=== PATIENT | female | born 1955 | race African-American/Black ===

== ENCOUNTER 2020-12-17 11:43 | Emergency (ER) | payer BC, OTHER ==
[~2020-12-17] VITALS: Ht 167.6 cm; Wt 77.1 kg
[2020-12-17 13:32] LABS: Basophils # (auto) 0 10 ^3/uL (0-0.2); Basophils % (auto) 0.6 % (0.0-2.0); Eosinophils # (auto) 0.3 10 ^3/uL (0-0.8); Eosinophils % (auto) 4.5 % (0.0-7.0); Hematocrit 36.8 % (36.0-46.0); Hemoglobin 12.2 g/dL (12.2-16.2); Lymphocytes # (auto) 2.9 10 ^3/uL (0.4-5.4); Lymphocytes % (auto) 39.6 % (10.0-50.0); Mean Corpuscular Hemoglobin 29.9 pg (28.0-32.0); Mean Corpuscular Hgb Conc. 33.2 g/dL (32.0-36.0); Mean Corpuscular Volume 90.1 fL (80.0-100.0); Monocytes # (auto) 0.4 10 ^3/uL (0-1.3); Monocytes % (auto) 5.3 % (0.0-12.0); Neutrophils # (auto) 3.7 10 ^3/uL (1.6-8.6); Platelet Count (auto) 251 10^3/uL (140-450); Red Blood Cells 4.09 10^6/uL (4.0-5.20); Red Cell Distribution Width 15.2 % (11.8-14.3); White Blood Cell 7.4 10^3/uL (4.4-10.8)
[2020-12-17 13:46] LABS: Partial Thromboplastin Time 28.2 sec (23.0-31.2)
[2020-12-17 13:55] LABS: Albumin 3.3 g/dL (3.4-5.0); Anion Gap 5 (5-15); Blood Urea Nitrogen 17 mg/dL (7-18); Calcium 9.2 mg/dL (8.5-10.1); Carbon Dioxide 28 mmol/L (21-32); Chloride 109 mmol/L (98-107); Potassium 3.3 mmol/L (3.5-5.1); Sodium 142 mmol/L (136-145)
[2020-12-17 14:03] LABS: Alanine Aminotransferase 16 U/L (13-56); Alkaline Phosphatase 122 U/L (45-117); Aspartate Aminotransferase 16 U/L (15-37); BUN/Creatinine Ratio 20.7; Bilirubin, Total 0.4 mg/dL (0.2-1.0); GFR African American 90 mL/min; GFR Non-African American 74 mL/min; Glucose 112 mg/dL (74-106); Total Protein 7.8 g/dL (6.4-8.2)
[2020-12-17 16:01] VITALS: BP 142/82
[2020-12-17] MEDS ORDERED: POTASSIUM CHL 20 Meq TABLET PO ONE (16:15)
== END 2020-12-17 16:55 | disposition home or self-care (01) ==
LOC: ER 11:43
DX: M79.604 Pain in right leg (principal); E87.6 Hypokalemia; I10 Essential (primary) hypertension; E78.5 Hyperlipidemia, unspecified
CPT/HCPCS: 36415; 80053; 83880; 84484; 85025; 85379; 85610; 85730; 93005; 93971

== ENCOUNTER 2022-08-11 10:41 | Emergency (ER) | payer BC, OTHER ==
[~2022-08-11] VITALS: Ht 167.6 cm; Wt 114.2 kg
[2022-08-11] MEDS ORDERED: ALBUTEROL SULF 2.5 MG/0.5ML(0.5%) NEB SOLN NEB ONE ×3 (11:00→12:30)
[2022-08-11] MEDS ORDERED: IPRATROPIUM BROM 0.5 MG/2.5ML INH SOL NEB ONE (11:00)
[2022-08-11] MEDS ORDERED: DexAMETHasone SOD PHOS 10MG/1ML VIAL INJ IV ONE (11:15)
[2022-08-11 11:33] LABS: Basophils # (auto) 0 10 ^3/uL (0-0.2); Basophils % (auto) 0.7 % (0.0-2.0); Eosinophils # (auto) 0.8 10 ^3/uL (0-0.8); Eosinophils % (auto) 13.3 % (0.0-7.0); Hematocrit 38.5 % (36.0-46.0); Hemoglobin 12.2 g/dL (12.2-16.2); Lymphocytes # (auto) 2.1 10 ^3/uL (0.4-5.4); Lymphocytes % (auto) 33.3 % (10.0-50.0); Mean Corpuscular Hemoglobin 28.4 pg (28.0-32.0); Mean Corpuscular Hgb Conc. 31.8 g/dL (32.0-36.0); Mean Corpuscular Volume 89.2 fL (80.0-100.0); Monocytes # (auto) 0.5 10 ^3/uL (0-1.3); Monocytes % (auto) 7.3 % (0.0-12.0); Neutrophils # (auto) 2.8 10 ^3/uL (1.6-8.6); Neutrophils % (auto) 45.4 % (37.0-80.0); Nucleated Red Blood Cells % 0.1 %; Red Blood Cells 4.31 10^6/uL (4.0-5.20); Red Cell Distribution Width 15.6 % (11.8-14.3); White Blood Cell 6.3 10^3/uL (4.4-10.8)
[2022-08-11 11:55] LABS: Albumin 3.4 g/dL (3.4-5.0); Calcium 9.1 mg/dL (8.5-10.1); Potassium 3.7 mmol/L (3.5-5.1)
[2022-08-11 11:58] LABS: BUN/Creatinine Ratio 18.1; Bilirubin, Total 0.5 mg/dL (0.2-1.0); Total Protein 7.7 g/dL (6.4-8.2)
[2022-08-11] MEDS ORDERED: MAGNESIUM SULFATE 1GM/100ML 100 ML IV SCH (12:30)
[2022-08-11] MEDS ORDERED: ONDANSETRON HCL 4 MG/2 ML VIAL IV ONE (13:15)
[2022-08-11] MEDS ORDERED: AZIT250T8 PO (18:13)
[2022-08-11] MEDS ORDERED: AZITHROMYCIN 250 MG TAB PO ONE (18:30)
[2022-08-11 20:58] LABS: Urine Bacteria NONE SEEN /hpf (None Seen); Urine Blood Negative /uL (Negative); Urine WBC 1 /hpf (0 - 5)
[2022-08-11 21:45] VITALS: BP 157/95
== END 2022-08-11 21:53 | disposition home or self-care (01) ==
LOC: ER 10:41
DX: J40 Bronchitis, not specified as acute or chronic (principal); E78.5 Hyperlipidemia, unspecified; I10 Essential (primary) hypertension
CPT/HCPCS: 36415; 71045; 80053; 81001; 83735; 83880; 84484; 85025; 93005; 94640; 96374; 99285; J1100; J7644

== ENCOUNTER 2023-03-16 08:48 | Inpatient (IN) | payer OTHER ==
[~2023-03-16] VITALS: Ht 167.6 cm; Wt 109.3 kg
[~2023-03-16 08:48] MED LIST: AZIT-81 PO
[2023-03-16] MEDS ORDERED: IPRATROPIUM BROM 0.5 MG/2.5ML INH SOL NEB ONE (09:00)
[2023-03-16] MEDS ORDERED: ALBUTEROL SULF 2.5 MG/0.5ML(0.5%) NEB SOLN NEB ONE (09:00)
[2023-03-16 09:33] LABS: Basophils # (auto) 0 10 ^3/uL (0-0.2); Basophils % (auto) 0.6 % (0.0-2.0); Eosinophils # (auto) 0.8 10 ^3/uL (0-0.8); Eosinophils % (auto) 13.1 % (0.0-7.0); Hematocrit 38.6 % (36.0-46.0); Hemoglobin 12.7 g/dL (12.2-16.2); Lymphocytes # (auto) 2.3 10 ^3/uL (0.4-5.4); Lymphocytes % (auto) 39.4 % (10.0-50.0); Mean Corpuscular Hemoglobin 29.8 pg (28.0-32.0); Mean Corpuscular Hgb Conc. 32.9 g/dL (32.0-36.0); Mean Corpuscular Volume 90.5 fL (80.0-100.0); Monocytes # (auto) 0.4 10 ^3/uL (0-1.3); Monocytes % (auto) 6.7 % (0.0-12.0); Neutrophils # (auto) 2.3 10 ^3/uL (1.6-8.6); Neutrophils % (auto) 40.2 % (37.0-80.0); Red Blood Cells 4.26 10^6/uL (4.0-5.20); Red Cell Distribution Width 14.7 % (11.8-14.3); White Blood Cell 5.8 10^3/uL (4.4-10.8)
[2023-03-16] MEDS ORDERED: DexAMETHasone SOD PHOS 10MG/1ML VIAL INJ IV ONE (09:45)
[2023-03-16 10:19] LABS: Albumin 3.4 g/dL (3.4-5.0); Calcium 9.4 mg/dL (8.5-10.1); Potassium 3.1 mmol/L (3.5-5.1)
[2023-03-16 10:23] LABS: BUN/Creatinine Ratio 28.3 (10.0-20.0); Bilirubin, Total 0.5 mg/dL (0.2-1.0); Total Protein 8.3 g/dL (6.4-8.2)
[2023-03-16] MEDS: SODIUM CHLORIDE 0.9% 1,000 ML IV SCH (17:00)
[2023-03-16] MEDS ORDERED: DOCUSATE SOD 100 MG CAP PO PRN (17:00)
[2023-03-16] MEDS ORDERED: MORPHINE SULFATE INJ 2 MG/ml SYRG IV PRN (17:00)
[2023-03-16] MEDS ORDERED: ONDANSETRON HCL 4 MG/2 ML VIAL IV PRN (17:00)
[2023-03-16 17:59] VITALS: BP 136/87
[2023-03-16] MEDS ORDERED: IPRATROPIUM BROM 0.5 MG/2.5ML INH SOL NEB SCH (18:00)
[2023-03-16] MEDS ORDERED: ALBUTEROL SULF 2.5 MG/0.5ML(0.5%) NEB SOLN NEB SCH (18:00)
[2023-03-16] MEDS: DexAMETHasone SOD PHOS 4 MG/1ML SDV INJ IV SCH (18:00)
[2023-03-16] MEDS: IPRATROPIUM BROM 0.5 MG/2.5ML INH SOL NEB SCH (18:35)
[2023-03-16] MEDS: ALBUTEROL SULF 2.5 MG/0.5ML(0.5%) NEB SOLN NEB SCH (18:36)
[2023-03-16] MEDS: ENOXAPARIN SOD 120 MG/0.8 ML SYRINGE SC SCH (22:16)
[2023-03-17] MEDS: DexAMETHasone SOD PHOS 4 MG/1ML SDV INJ IV SCH ×3 (00:10→11:56)
[2023-03-17 00:15] LABS: Urine Bacteria FEW /hpf (None Seen); Urine Blood Negative /uL (Negative); Urine Mucus FEW (None Seen); Urine WBC 9 /hpf (0 - 5)
[2023-03-17 00:16] LABS: Urine Specific Gravity > 1.035 (1.001-1.035)
[2023-03-17] MEDS: SODIUM CHLORIDE 0.9% 1,000 ML IV SCH ×2 (01:47→09:59)
[2023-03-17] MEDS: IPRATROPIUM BROM 0.5 MG/2.5ML INH SOL NEB SCH ×2 (05:42→12:33)
[2023-03-17] MEDS: ALBUTEROL SULF 2.5 MG/0.5ML(0.5%) NEB SOLN NEB SCH ×2 (05:42→12:33)
[2023-03-17 06:02] LABS: Albumin 3.2 g/dL (3.4-5.0); Calcium 8.9 mg/dL (8.5-10.1); Potassium 3.4 mmol/L (3.5-5.1)
[2023-03-17 06:05] LABS: BUN/Creatinine Ratio 32.9 (10.0-20.0)
[2023-03-17 06:06] LABS: Basophils # (auto) 0 10 ^3/uL (0-0.2); Basophils % (auto) 0.2 % (0.0-2.0); Eosinophils # (auto) 0 10 ^3/uL (0-0.8); Eosinophils % (auto) 0.1 % (0.0-7.0); Hematocrit 36.7 % (36.0-46.0); Hemoglobin 12.2 g/dL (12.2-16.2); Lymphocytes # (auto) 1.2 10 ^3/uL (0.4-5.4); Mean Corpuscular Hemoglobin 30.3 pg (28.0-32.0); Mean Corpuscular Hgb Conc. 33.4 g/dL (32.0-36.0); Mean Corpuscular Volume 90.9 fL (80.0-100.0); Monocytes # (auto) 0.1 10 ^3/uL (0-1.3); Monocytes % (auto) 1.1 % (0.0-12.0); Neutrophils # (auto) 3.2 10 ^3/uL (1.6-8.6); Neutrophils % (auto) 71.6 % (37.0-80.0); Nucleated Red Blood Cells % 0.1 %; Red Blood Cells 4.03 10^6/uL (4.0-5.20); White Blood Cell 4.5 10^3/uL (4.4-10.8)
[2023-03-17 06:08] LABS: Bilirubin, Total 0.2 mg/dL (0.2-1.0); Total Protein 7.9 g/dL (6.4-8.2)
[2023-03-17] MEDS: ENOXAPARIN SOD 120 MG/0.8 ML SYRINGE SC SCH (09:58)
[2023-03-17] MEDS ORDERED: POTASSIUM EFFERVESENT TAB 25 MEQ PO SCH (10:00)
[2023-03-17] MEDS ORDERED: NALOXONE HCL 0.4 MG/ML VIAL ONE (13:40)
[2023-03-17 16:22] VITALS: BP 149/92
[2023-03-17] MEDS ORDERED: METH4PAK PO (16:26)
== END 2023-03-17 16:58 | disposition home or self-care (01) | DRG 189 ==
LOC: ER 08:48 → TELE 17:16
PROVIDERS: ADMIT Nurse Practitioner Family; ATTEND Nurse Practitioner Family
DX: J96.01 Acute respiratory failure with hypoxia (principal); J98.11 Atelectasis; J44.1 Chronic obstructive pulmonary disease with (acute) exacerbation; J45.901 Unspecified asthma with (acute) exacerbation; E87.6 Hypokalemia; I10 Essential (primary) hypertension; E66.01 Morbid (severe) obesity due to excess calories; E78.5 Hyperlipidemia, unspecified; Z68.38 Body mass index [BMI] 38.0-38.9, adult
CPT/HCPCS: 36415; 36600; 71045; 71275; 80053; 81001; 82805; 83880; 84484; 85025; 93005; 93970; 94640; 96374; 99291; G0378; J1100

== ENCOUNTER 2024-07-03 10:16 | Inpatient (IN) | payer OTHER ==
[~2024-07-03] VITALS: Ht 167.6 cm; Wt 114.9 kg
[~2024-07-03 10:16] MED LIST changes: +AZIT-185 PO; -AZIT-81 PO; +METH4PAK PO
[2024-07-03] MEDS: IPRATROPIUM BROM 0.5 MG/2.5ML INH SOL NEB ONE (11:07)
[2024-07-03] MEDS: LEVALBUTEROL HCL 1.25 MG/3 ML NEB NEB ONE (11:07)
--- NOTE | 2024-07-03 11:24 | DVH ---
EXAM: XY CHEST XRAY 1 VIEW Indication:sob Technique: Single frontal view of the chest was obtained Comparison: XY CHEST PORTABLE on DOS: 03/16/23, CHEST PORTABLE on DOS: 08/11/22, CXRP on DOS: 08/11/22 FINDINGS: Lines and Tubes: None Lungs: No focal consolidation. Pleura: No effusion. No pneumothorax. Cardiomediastinal contours: Unremarkable. Atherosclerotic vascular calcifications of the thoracic ao rta are noted. Bones: No acute osseous abnormality. IMPRESSION: No acute cardiopulmonary disease.
--- NOTE | 2024-07-03 11:26 | ED.PDOC ---
GI ASSESSMENT HPI Comments This is a 69-year-old female who comes to the ED with chief complain of abdominal pain and shortness of breath. She has a past medical history relevant for uterine cancer diagnosed in October, hysterectomy was performed on November, patient has received six chemotherapy sessions, the last one was last week. She also has a history of hypertension. Patient states that since June 12 she has been experiencing increasing shortness a breath and abdominal pain. She stated that the shortness of breath is at rest, on exertion, associated with wheezing, productive cough, which is [id number] amount. Is associated with fevers, chills, sweats, fatigue, generalized weakness, general malaise, orthopnea, low appetite. In regards to her abdominal pain, she stated that it is severe, colicky, most prominent on the lower quadrants, suprapubic, it does radiate to her lower back, she states having vaginal bleeding, dysuria, dribbling, urinary urgency, urinary frequency. Patient currently denies any chest pain, lightheadedness, dizziness, headache, nausea, vomiting, diarrhea, constipation, hematochezia, melena, hematemesis. Chief Complaint: Abdominal Pain Time Seen by MD: 10:19 Primary Care Provider: CHRISTOFER Ramirez Notes: Nurses Notes Allergies: Coded Allergies: NO KNOWN ALLERGIES (Unverified , 12/17/20) Home Meds Active Scripts Methylprednisolone (Medrol Dosepak) 4 Mg Faisal, 4 MG PO UD, #21 TAB UAD Prov:NEO KHAN MD 03/17/23 Azithromycin (ZITHROMAX TABLET) 250 Mg Tb, 250 MG PO DAILY for 5 Days, #5 TAB 0 Refills Prov:LUZ LAL MD 08/11/22 Information Source: Patient Mode of Arrival: Ambulatory Timing: Weeks Duration: Since onset Quality: Cramping Vomitus: None Severity: Severe Pain Location: LLQ, Suprapubic Past Medical History PAST MEDICAL HISTORY: Arthritis, HTN Surgical History: Hysterectomy Surgical History (Other): Uterine cancer diagnosed in October, hysterectomy performed on November. Has received six chemo sessions, last one was last week, upcoming radiation therapy [employer]ENT History: Other (Uterine cancer) Family History Family History: Reviewed,noncontributory to illness, Family hx of HTN Social History Smoker: Non-Smoker Alcohol: Rarely Drugs: Denies Drug Use Lives In: Home Constitutional: reports: chills, fatigue, fever, malaise, sweats, weakness; denies: diaphoresis, others EENTM: denies: blurred vision, double vision, ear bleeding, ear discharge, ear drainage, ear pain, ear ringing, eye pain, eye redness, hearing loss, mouth pain, mouth swelling, nasal discharge, nose bleeding, nose congestion, nose pain, photophobia, tearing, throat pain, throat swelling, voice changes, others Respiratory: reports: cough, orthopnea, SOB at rest, shortness of breath, SOB with excertion, wheezing; denies: hemoptysis, stridor, others Cardiovascular: reports: Dyspnea on exertion; denies: chest pain, dizzy spells, diaphoresis, edema, irregular heart beat, left arm pain, lightheadedness, palpitations, PND, syncope, others Gastrointestinal: reports: abdominal pain, poor appetite, poor fluid intake; denies: abdomen distended, blood streaked bowels, constipated, diarrhea, dysphagia, difficulty swallowing, hematemesis, melena, nausea, rectal bleeding, rectal pain, vomiting, others Genitourinary: reports: abnormal vagina bleeding, burning, dysuria, flank pain, frequency, urgency; denies: dyspareunia, hematuria, incontinence, pain, , vagina discharge, others Neurological: denies: dizziness, fainting, headache, left sided numbness, left sided weakness, numbness, paresthesia, pre-existing deficit, right sided numbness, right sided weakness, seizure, speech problems, tingling, tremors, weakness, others Musculoskeletal: denies: back pain, gout, joint pain, joint swelling, muscle pain, muscle stiffness, neck pain, others Integumetry: reports: dryness; denies: bruises, change in color, change in hair/nails, laceration, lesions, lumps, rash, wounds, others Allergic/Immunocompromised: denies: Difficulty Healing, Frequent Infections, Hives, Itching, others Hematologic/Lymphatic: denies: anemia, blood clots, easy bleeding, easy bruising, swollen glands, others Endocrine: denies: excessive hunger, excessive sweating, excessive thirst, excessive urination, flushing, intolerance to cold, intolerance to heat, unexplained weight gain, unexplained weight loss, others Psychiatric: denies: anxiety, bipolar disorder, depression, hopeless, panic disorder, schizophrenia, sleepless, suicidal, others Physical Exam General Appearance: Moderate Distress, Obese HEENT: Normal ENT Inspection, Pharynx Normal, TMs Normal Neck: Full Range of Motion, Non-Tender, Normal, Normal Inspection Respiratory: Crackles, Decreased Breath Sounds, Inspiration, No Accessory Muscle Use, Respiratory Distress, Wheezing Cardiovascular: No Edema, No JVD, No Murmur, No Gallop, Normal Peripheral Pulses, Regular Rate/Rhythm Breast Exam: Deferred Gastrointestinal: LLQ, Normal Bowel Sounds, Suprapubic, Tenderness Genitalia: Deferred Pelvic: Deferred Rectal: Deferred Extremities: No calf tenderness, Normal capillary refill, Normal inspection, Normal range of motion, Non-tender, No pedal edema Neurologic: Alert, Normal Affect, Normal Mood Cerebellar Function: NOT DONE Reflexes: NOT DONE Skin: Dry, Normal Color, Warm Lymphatic: No Adenopathy Was a procedure done? Was a procedure done?: No GI differential Dx Differential Diagnosis: Constipation, Diverticular disease, Dysmenorrhea, Gastroenteritis, Pancreatitis, UTI Other Differential Diagnosis Acute hypoxic respiratory failure, pneumonia X-Ray, Labs, Meds, VS Vital Signs Date Time Temp Pulse Resp B/P (MAP) Pulse Ox O2 Delivery O2 Flow Rate FiO2 07/03/24 11:42 90 14 91 Nasal Cannula* 4 36 07/03/24 11:42 98.0 90 14 169/81 (110) 91 98.0 07/03/24 11:07 20 97 Room Air* 0 21 07/03/24 10:46 105 07/03/24 10:45 98.0 99 16 153/98 (116) 95 Lab Test 07/03/24 13:12 Range/Units White Blood Count 16.9 H 4.4-10.8 10^3/uL Red Blood Count 3.41 L 4.0-5.20 10^6/uL Hemoglobin 10.1 L 12.2-16.2 g/dL Hematocrit 31.8 L 36.0-46.0 % Mean Corpuscular Volume 93.3 80.0-100.0 fL Mean Corpuscular Hemoglobin 29.6 28.0-32.0 pg Mean Corpuscular Hemoglobin Concent 31.7 L 32.0-36.0 g/dL Red Cell Distribution Width 18.8 H 11.8-14.3 % Platelet Count 127 L 140-450 10^3/uL Mean Platelet Volume 10.6 6.9-10.8 fL Neutrophils (%) (Auto) 86.4 H 37.0-80.0 % Lymphocytes (%) (Auto) 8.0 L 10.0-50.0 % Monocytes (%) (Auto) 1.7 0.0-12.0 % Eosinophils (%) (Auto) 3.7 0.0-7.0 % Basophils (%) (Auto) 0.2 0.0-2.0 % Neutrophils # (Auto) 14.6 H 1.6-8.6 10 ^3/uL Lymphocytes # (Auto) 1.4 0.4-5.4 10 ^3/uL Monocytes # (Auto) 0.3 0-1.3 10 ^3/uL Eosinophils # (Auto) 0.6 0-0.8 10 ^3/uL Basophils # (Auto) 0 0-0.2 10 ^3/uL Nucleated Red Blood Cells 0.0 % Sodium Level Pending Potassium Level Pending Chloride Level Pending Carbon Dioxide Level Pending Anion Gap Pending Blood Urea Nitrogen Pending Creatinine Pending Glomerular Filtration Rate Calc Pending BUN/Creatinine Ratio Pending Serum Glucose Pending Calcium Level Pending Total Bilirubin Pending Aspartate Amino Transferase (AST) Pending Alanine Aminotransferase (ALT) Pending Alkaline Phosphatase Pending Troponin I High Sensitivity 8 </=34 ng/L B-Type Natriuretic Peptide 9.60 0-100 pg/mL Total Protein Pending Albumin Pending Lipase Pending Current Medications Medications (Trade) Dose Ordered Sig/Vickey Route Start Time Stop Time Status Last Admin Ipratropium Ragley (Atrovent Medneb) 1 mg ONCE ONCE NEB 07/03/24 10:45 07/03/24 10:47 DC 07/03/24 11:07 Ketorolac Tromethamine (Toradol Injection) 30 mg ONCE ONCE IV 07/03/24 10:45 07/03/24 10:47 DC 07/03/24 13:14 Levalbuterol HCl (Xopenex Medneb) 1.25 mg ONCE ONCE NEB 07/03/24 10:55 07/03/24 10:58 DC 07/03/24 11:07 Patient was seen and examined at triage, patient appeared to have significant distress due to shortness of breath, and abdominal pain. We ordered a CBC, CMP, troponins, BNP, chest x-ray, COVID test, influenza test, Xopenex inhaler, Atrovent inhaler, we will continue to reassess. CBC demonstrated leukocytosis, anemia, she is also tachycardic, possible sepsis, we will give Rocephin and Flagyl. Patient continues to be in acute hypoxic respiratory failure, chest x-ray was unremarkable, CT abdomen revealed Prominent right external iliac lymph node. Cyst in the dome of the liver. Cholelithiasis. Left upper pole renal cyst. Small amount of free fluid in the pelvis which appears slightly high density. Diffuse wall thickening of the colon. Consider further evaluation with MRI of the pelvis with contrast. We will admit patient for further management. , Images Reviewed?: Images reviewed and evaluated by me Time of 1ST Reevaluation: 11:07 Reevaluation 1ST: Unchanged Patient Education/Counseling: Diagnosis, Treatment Family Education/Counseling: Diagnosis, Treatment Departure 1 Departure Time of Disposition: 12:56 Impression: Primary Impression: Acute hypoxic respiratory failure Additional Impressions: Viral syndrome Cholelithiasis Non-specific colitis Disposition: ADMITTED INPATIENT Admit to: [facility] Condition: Guarded Critical Care Note Critical Care Time?: No Stability Stability form required: No Heart Score Heart Score: Heart Score Response (Comments) Value History Moderate Suspicious 1 EKG Normal 0 Age >65 2 Risk Factors 1 or 2 risk factors 1 Troponin N/A 0 Total 4 IFEANYI JARRETT RESIDENT Jul 03, 2024 11:26
[2024-07-03 11:42] VITALS: PULSE 90; RESP 14; O2SAT 91
[2024-07-03] MEDS ORDERED: LEVALBUTEROL HCL 1.25 MG/3 ML NEB NEB ONE (12:00)
--- NOTE | 2024-07-03 12:41 | DVH ---
Exam: CT CT AB PEL WO CON-NO ORAL OR IV History: adominal pain, vaginal bleeding, h/o hysterectomy Comparison Study: None Technique: Multidetector spiral CT of the abdomen and pelvis was performed from lung bases to pubic symphysis. Imaging was performed without IV contrast. Axial, coronal and sagittal multiplanar reform ats were obtained from the axial data set by the technologist. Radiation dose : Abdomen/Pelvis: CTDIvol 25.34 mGy, DLP 1226.02 mGy*cm. Findings: Evaluation of solid organs is limited due to lack of intravenous contrast use. Lung Bases: No acute or significant lung base finding. Normal heart size. No pleural or pericardial effusion. Liver: There is a subcentimeter cyst in the dome of the liver. Gallbladder and biliary Tree: Cholelithiasis noted without secondary findings of cholecystitis or ana iary obstruction. Spleen: Unremarkable Pancreas: The pancreas is grossly normal in appearance. Adrenal Glands: Unremarkable Kidneys: There is a left upper pole renal cyst measuring up to 26 mm. No hydronephrosis. Bladder: Grossly unremarkable for degree of distention. Bowel: The stomach is grossly normal in appearance. Small bowel is not dilated. There is diffuse unde rdistention and wall thickening of the colon. The appendix is not visualized; however, no secondary findings of acute appendicitis identified. Ascites: Small amount of free fluid in the pelvis called SAC Lymphadenopathy: Prominent right external iliac chain lymph node measuring up to 12mm in short axis. Abdominal wall and Mesentery: Unremarkable. Vasculature: The visualized abdominal aorta is normal in size and caliber. Evaluation of abdominal a nd pelvic vessels is limited due to lack of intravenous contrast. Pelvic Organs: The uterus is surgically absent. Musculoskeletal: No aggressive focal bony lesions, acute fractures or dislocation. IMPRESSION: 1. No acute abdominal or pelvic findings. Prominent right external iliac lymph node. Cyst in the dome of the liver. Cholelithiasis. Left upper pole renal cyst. Small amount of free fluid in the pelvis w hich appears slightly high density. Diffuse wall thickening of the colon. Consider further evaluation with MRI of the pelvis with contrast. Radiation optimization: All CT scans at this facility use at least one of these dose optimization ward hniques: Automated exposure control mA and/or kV adjustment per patient size (includes targeted exams where dose is matched to clinical indication) or iterative reconstruction. HS:Y
[2024-07-03] MEDS: KETOROLAC TROMETH 30 MG/ML 1ML VIAL IV ONE (13:14)
[2024-07-03 14:14] LABS: Alanine Aminotransferase 16 U/L (7-40); Alkaline Phosphatase 148 U/L (46-116); Anion Gap 5 (5-15); BUN/Creatinine Ratio 16.9 (10.0-20.0); Blood Urea Nitrogen 14 mg/dL (9-23); Calcium 9.5 mg/dL (8.7-10.4); Carbon Dioxide 29 mmol/L (20-31); Chloride 107 mmol/L (98-107); Glucose 103 mg/dL (74-106); Lipase 25 U/L (12-53); Potassium 3.5 mmol/L (3.5-5.1); Sodium 141 mmol/L (136-145)
[2024-07-03 14:15] LABS: Albumin 4.1 g/dL (3.2-4.8); Aspartate Aminotransferase 17 U/L (13-40); Bilirubin, Total 0.9 mg/dL (0.2-1.0); Total Protein 7.4 g/dL (5.7-8.2)
[2024-07-03 14:18] LABS: Basophils # (auto) 0 10 ^3/uL (0-0.2); Basophils % (auto) 0.2 % (0.0-2.0); Eosinophils # (auto) 0.6 10 ^3/uL (0-0.8); Eosinophils % (auto) 3.7 % (0.0-7.0); Hematocrit 31.8 % (36.0-46.0); Hemoglobin 10.1 g/dL (12.2-16.2); Lymphocytes # (auto) 1.4 10 ^3/uL (0.4-5.4); Mean Corpuscular Hemoglobin 29.6 pg (28.0-32.0); Mean Corpuscular Hgb Conc. 31.7 g/dL (32.0-36.0); Mean Corpuscular Volume 93.3 fL (80.0-100.0); Monocytes # (auto) 0.3 10 ^3/uL (0-1.3); Monocytes % (auto) 1.7 % (0.0-12.0); Neutrophils # (auto) 14.6 10 ^3/uL (1.6-8.6); Neutrophils % (auto) 86.4 % (37.0-80.0); Platelet Count (auto) 127 10^3/uL (140-450); Red Blood Cells 3.41 10^6/uL (4.0-5.20); Red Cell Distribution Width 18.8 % (11.8-14.3); White Blood Cell 16.9 10^3/uL (4.4-10.8)
--- NOTE | 2024-07-03 14:23 | ECG ---
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
[2024-07-03 15:04] LABS: Urine Bacteria None Seen /hpf (None Seen)
[2024-07-03 15:14] LABS: Urine Blood 1+ /uL (Negative); Urine Clarity Clear (Clear); Urine Color Yellow (Yellow); Urine Mucus FEW (None Seen); Urine Protein, UAD 1+ (Negative); Urine Specific Gravity 1.023 (1.001-1.035); Urine Urobilinogen Normal (Negative); Urine WBC 55 /hpf (0 - 5); Urine pH 5.5 (5.0-9.0)
[2024-07-03] MEDS: amLODIPine BESYLATE 5 MG TAB PO ONE (17:12)
[2024-07-03] MEDS: SODIUM CHLORIDE 0.9% 1,000 ML IV ONE (17:13)
[2024-07-03] MEDS: cefTRIAXone 1GM/50ML D5W 50 ML IV ONE (17:14)
[2024-07-03] MEDS: metroNIDAZOLE 500MG/100ML 100 ML IV ONE (17:30)
[2024-07-03] MEDS: IOHEXOL 300 MG/ML 100ML BOTTLE IJ ONE (19:12)
--- NOTE | 2024-07-03 19:59 | DVH ---
CLINICAL HISTORY: abd pain TECHNIQUE: CT of the abdomen and pelvis was performed with intravenous contrast. This exam was perfor med according to our departmental dose optimization program. Up-to-date CT equipment and radiation do se reduction techniques are utilized as appropriate. WID: COMPARISON: None FINDINGS: Lower Thorax: Linear bibasilar scarring or atelectasis. Normal-sized heart. Liver and Biliary system: Hepatomegaly. there are tiny hypodensities throughout both lobes of the jasen er which are too small to characterize. Major portal veins are patent. Cholelithiasis. No biliary camilla susy dilatation. Spleen: Unremarkable. Adrenal Glands and Kidneys: Normal adrenal glands. There are bilateral renal cysts. No hydronephrosis or nephrolithiasis. Pancreas and Retroperitoneum: Unremarkable. Aorta and Major Vessels: Aortoiliac vessels are patent and normal caliber containing mild calcified a therosclerotic plaque. Bowel, Mesentery and Peritoneal space: The small and large bowel loops are normal in caliber. Normal appendix. Mild wall thickening throughout the large bowel. There is a prominent left peritoneal nodul e measuring 1.4 x 1.6 cm on series 2, image 41. Additional small tiny scattered nodules throughout th e peritoneal space. There is no free air or fluid collection. Mild ascites predominantly in the pelvi s. There is surgical suture material at the gastroesophageal junction. Pelvis: There are prominent bilateral pelvic lymph nodes for example in the right external iliac deidre on on series 2, image 73. There are nodules in the bilateral pelvis with an aggregate of nodules in t he left pelvis measuring 1.3 x 3.1 cm on series 2, image 64 and an additional nodule in the right pel vis on series 2, image 64. Prior hysterectomy. Urinary bladder is mildly distended. Abdominal wall and Osseous Structures: no destructive osseous lesion. Numerous sclerotic foci throug hout the proximal femurs, pelvis, lower thoracic and lumbar spine. There are soft tissue nodules in t he bilateral rectus abdominus muscles on the right on series 2, image 48 and on the left on series 2, image 44. IMPRESSION: 1. Mild wall thickening in the colon which may be in part due to underdistention versus mild infectio us or inflammatory colitis. 2. Scattered soft tissue nodules throughout the peritoneal space most pronounced in the pelvis concer filiberto for metastatic disease. 3. Soft tissue nodules in the bilateral rectus abdominus muscles likely metastases. 4. Numerous sclerotic foci throughout the osseous structures which could reflect metastases. 5. Cholelithiasis. 6. Mild hepatomegaly.
[2024-07-03 20:11] VITALS: PULSE 86; RESP 17; O2SAT 86
[2024-07-03 20:49] LABS: Rapid Influenza A Negative (Negative); Rapid Influenza B Negative (Negative)
[2024-07-03 20:58] LABS: COVID19 ANTIGEN SOFIA FIA NEGATIVE (NEGATIVE)
[2024-07-03] MEDS ORDERED: ONDANSETRON HCL 4 MG/2 ML VIAL IV PRN (22:00)
[2024-07-03] MEDS: SODIUM CHLOR 0.9% PF (SALINE LOCK) 10ML VIAL/SYR IV SCH (22:00)
[2024-07-03] MEDS ORDERED: DOCUSATE SOD 100 MG CAP PO PRN (22:00)
[2024-07-03] MEDS: metroNIDAZOLE 500MG/100ML 100 ML IV SCH (22:00)
[2024-07-03] MEDS: FAMOTIDINE (10MG/ML) 2ML VL IV SCH (22:00)
[2024-07-03] MEDS ORDERED: ACETAMINOPHEN 325 MG TAB PO PRN (22:00)
[2024-07-03] MEDS ORDERED: MORPHINE SULFATE INJ 2 MG/ml SYRG IV PRN ×2 (22:00→23:15)
[2024-07-03] MEDS: ENOXAPARIN SOD 40 MG/0.4 ML SYRINGE SC SCH (23:00)
--- NOTE | 2024-07-03 23:13 | DVHHP2 ---
History of Present Illness Reason for Visit: Acute abdominal pain History of Present Illness The patient is a 69-year-old female with past medical history of arthritis, asthma, hypertension, and uterine cancer on chemotherapy, presented to [facility] ED with complaint of abdominal pain and shortness of breaths. Patient reports symptoms progressively get worse with multiple conditions including wheezing, productive cough, fever, chills, sweats, fatigue, generalized weakness, general malaise, orthopnea, poor appetite, lower quadrant and suprapubic severe pain, vaginal bleeding, dysuria, urinary urgency, frequency, getting worse today that prompted this visit. Patient was seen and ev aluated in the ED, laboratory data shows elevated WBC 16.9, hemoglobin 10.1, hematocrit 31.8, platelets 127, sodium 141, potassium 3.5, BUN 14, creatinine 0.83, glucose 103, troponin 8, lipase 25, BNP 9.60, urinalysis positive for urinary tract infection. Chest x-ray showed no acute cardiopulmonary disease. Abdomen/pelvis CT revealing mild wall thickening in the colon which may be in part due to underdistended versus mild infectious or inflammatory colitis, scattered soft tissue nodules throughout the peritoneal space most pronounced in the pelvis concerning for metastatic disease, cholelithiasis, mild hepatomegaly. Please see medication orders section in the computer. On my assessment, patient denies chest pain, no headache, no dizziness, no diaphoresis, no palpitation, currently on oxygen, no nausea, no vomiting, no fever, no chills. Patient was admitted for further evaluation and medical management. Past Medical History Arthritis, HTN, Uterine cancer Past Surgical History Hysterectomy performed on November. Has received six chemo sessions, last one was last week, upcoming radiation therapy Family History Reviewed, noncontributory to the management of this case. Past Social History The patient lives at home, denies smoking, alcohol or illicit drugs abuse. Review of Systems Constitutional: Yes: Fever, Chills, Sweats, Weakness, Malaise, Other (Fatigue.) Eyes: No: Pain, Vision change, Conjunctivae inflammation, Eyelid inflammation, Other, Redness ENT: No: Ear pain, Ear discharge, Nose pain, Nose discharge, Nose congestion, Mouth pain, Mouth swelling, Throat pain, Throat swelling, Other Respiratory: Cough, Shortness of breath, SOB with excertion, Wheezing, Other (SOB at rest, orthopnea.); No: Dry, Hemoptysis, Pleuritic Pain, Sputum, Wheezing Cardiovascular: Other (Dyspnea on exertion); No: Chest Pain, Palpitations, Orthopnea, Paroxysmal Noc. Dyspnea, Edema, Lt Headedness Gastrointestinal: Abdominal Pain, Other (Poor appetite, poor fluid intake.); No: Nausea, Vomiting, Diarrhea, Constipation, Melena, Hematochezia Genitourinary: Dysuria, Frequency; No Incontinence, No Hematuria, No Retention; Other (Abdominal vaginal bleeding, flank pain, burning,) Musculoskeletal: No: other, neck pain, shoulder pain, arm pain, back pain, hand pain, leg pain, foot pain Skin: No: Rash, Lesions, Jaundice, Bruising, Other Neurological: No: Weakness, Numbness, Incoordination, Change in speech, Confusion, Seizures, Other Allergies: Coded Allergies: NO KNOWN ALLERGIES (Unverified , 12/17/20) Medications Current Medications Medications Dose Ordered Sig/Vickey Route Start Time Stop Time Status Last Admin Dose Admin Ceftriaxone Sodium 50 ml @ 100 mls/hr DAILY@09 IV 07/04/24 09:00 Metronidazole 100 ml @ 100 mls/hr Q8HR IV 07/03/24 22:00 Hydralazine HCl 10 mg Q6HP PRN IV 07/03/24 22:00 Levalbuterol HCl 1.25 mg Q6HR NEB 07/04/24 00:00 Famotidine 20 mg Q12HR IV 07/03/24 22:00 Sodium Chloride 10 ml Q8HR IV 07/03/24 22:00 Acetaminophen/ Hydrocodone Bitart 1 tab Q4HP PRN PO 07/03/24 22:00 Ondansetron HCl 4 mg Q4HP PRN IV 07/03/24 22:00 Docusate Sodium 100 mg BIDPRN PRN PO 07/03/24 22:00 Enoxaparin Sodium 40 mg BID SC 07/03/24 23:00 Acetaminophen 650 mg Q6HP PRN PO 07/03/24 22:00 Morphine Sulfate 2 mg Q4HPRN PRN IV 07/03/24 22:00 Exam Vital Signs Vital Signs Date Time Temp Pulse Resp B/P (MAP) Pulse Ox O2 Delivery O2 Flow Rate FiO2 07/03/24 21:51 80 16 158/93 (114) 100 07/03/24 20:11 Nasal Cannula* 4 36 07/03/24 19:39 98.7 98.7 General Appearance: Alert, Oriented X3, Cooperative, No acute distress HEENT: Atraumatic, PERRLA, EOMI, Mucous membr. moist/pink Respiratory: Clear to auscultation, Normal air movement Cardiovascular: Regular rate, Normal S1, Normal S2, No murmurs Abdominal: Normal bowel sounds, Soft, No tenderness, No hepatospenomegaly, No masses Extremities: No clubbing, No cyanosis, No edema, Normal pulses, No tenderness/swelling Skin: No rashes, No breakdown, No significant lesion Neuro: Normal speech, Normal tone, Sensation intact, Cranial nerves 3-12 NL, Reflexes 2+ Psych/Mental Status: Mental status NL, Mood NL Labs/Xrays Labs Test 07/03/24 20:22 07/03/24 15:00 07/03/24 14:55 07/03/24 13:12 Range/Units Influenza Type A Antigen Negative Negative Influenza Type B Antigen Negative Negative SARS-CoV-2 Antigen (Rapid) Negative NEGATIVE Urine Color Yellow Yellow Urine Clarity Clear Clear Urine pH 5.5 5.0-9.0 Urine Specific [place] 1.023 1.001-1.035 Urine Protein 1+ H Negative Urine Ketones Negative Negative Urine Blood 1+ H Negative /uL Urine Nitrite Negative Negative Urine Bilirubin Negative Negative Urine Urobilinogen Normal Negative mg/dL Urine Leukocyte Esterase 2+ Negative /uL Urine RBC 8 0 - 4 /hpf Urine WBC 55 0 - 5 /hpf Urine Squamous Epithelial Cells Few <5 /hpf Urine Bacteria None seen None Seen /hpf Urine Mucus Few None Seen Urine Glucose Normal Normal mg/dL Lactic Acid Level 1.1 0.4-2.0 mmol/L White Blood Count 16.9 H 4.4-10.8 10^3/uL Red Blood Count 3.41 L 4.0-5.20 10^6/uL Hemoglobin 10.1 L 12.2-16.2 g/dL Hematocrit 31.8 L 36.0-46.0 % Mean Corpuscular Volume 93.3 80.0-100.0 fL Mean Corpuscular Hemoglobin 29.6 28.0-32.0 pg Mean Corpuscular Hemoglobin Concent 31.7 L 32.0-36.0 g/dL Red Cell Distribution Width 18.8 H 11.8-14.3 % Platelet Count 127 L 140-450 10^3/uL Mean Platelet Volume 10.6 6.9-10.8 fL Neutrophils (%) (Auto) 86.4 H 37.0-80.0 % Lymphocytes (%) (Auto) 8.0 L 10.0-50.0 % Monocytes (%) (Auto) 1.7 0.0-12.0 % Eosinophils (%) (Auto) 3.7 0.0-7.0 % Basophils (%) (Auto) 0.2 0.0-2.0 % Neutrophils # (Auto) 14.6 H 1.6-8.6 10 ^3/uL Lymphocytes # (Auto) 1.4 0.4-5.4 10 ^3/uL Monocytes # (Auto) 0.3 0-1.3 10 ^3/uL Eosinophils # (Auto) 0.6 0-0.8 10 ^3/uL Basophils # (Auto) 0 0-0.2 10 ^3/uL Nucleated Red Blood Cells 0.0 % Sodium Level 141 136-145 mmol/L Potassium Level 3.5 3.5-5.1 mmol/L Chloride Level 107 98-107 mmol/L Carbon Dioxide Level 29 20-31 mmol/L Anion Gap 5 5-15 Blood Urea Nitrogen 14 9-23 mg/dL Creatinine 0.83 0.550-1.02 mg/dL Glomerular Filtration Rate Calc 76 >90 mL/min BUN/Creatinine Ratio 16.9 10.0-20.0 Serum Glucose 103 74-106 mg/dL Calcium Level 9.5 8.7-10.4 mg/dL Total Bilirubin 0.9 0.2-1.0 mg/dL Aspartate Amino Transferase (AST) 17 13-40 U/L Alanine Aminotransferase (ALT) 16 7-40 U/L Alkaline Phosphatase 148 H 46-116 U/L Troponin I High Sensitivity 8 </=34 ng/L B-Type Natriuretic Peptide 9.60 0-100 pg/mL Total Protein 7.4 5.7-8.2 g/dL Albumin 4.1 3.2-4.8 g/dL Lipase 25 12-53 U/L PATIENT: ELAN CASTILLO ACCT: [id number] UNIT: [id number] : 1955 LOC: ER ROOM / BED: / AGE / SEX: 69 / F ADM STATUS: REG ER SERVICE 01 ORDERING PHYSICIAN: GLENN HUSTON MD PROCEDURE(s): ABPLIV - CT AB PEL WITH IV CON ONLY REASON: abd pain ORDER NUMBER(s): [id number], ACCESSION NUMBER(s): [id number] CLINICAL HISTORY: abd pain TECHNIQUE: CT of the abdomen and pelvis was performed with intravenous contrast. This exam was performed according to our departmental dose optimization program. Up-to-date CT equipment and radiation dose reduction techniques are utilized as appropriate. WID: COMPARISON: None FINDINGS: Lower Thorax: Linear bibasilar scarring or atelectasis. Normal-sized heart. Liver and Biliary system: Hepatomegaly. there are tiny hypodensities throughout both lobes of the liver which are too small to characterize. Major portal veins are patent. Cholelithiasis. No biliary ductal dilatation. Spleen: Unremarkable. Adrenal Glands and Kidneys: Normal adrenal glands. There are bilateral renal cysts. No hydronephrosis or nephrolithiasis. Pancreas and Retroperitoneum: Unremarkable. Aorta and Major Vessels: Aortoiliac vessels are patent and normal caliber containing mild calcified atherosclerotic plaque. Bowel, Mesentery and Peritoneal space: The small and large bowel loops are normal in caliber. Normal appendix. Mild wall thickening throughout the large bowel. There is a prominent left peritoneal nodule measuring 1.4 x 1.6 cm on series 2, image 41. Additional small tiny scattered nodules throughout the peritoneal space. There is no free air or fluid collection. Mild ascites p redominantly in the pelvis. There is surgical suture material at the gastroesophageal junction. Pelvis: There are prominent bilateral pelvic lymph nodes for example in the right external iliac region on series 2, image 73. There are nodules in the bilateral pelvis with an aggregate of nodules in the left pelvis measuring 1.3 x 3.1 cm on series 2, image 64 and an additional nodule in the right pelvis on series 2, image 64. Prior hysterectomy. Urinary bladder is mildly distended. Abdominal wall and Osseous Structures: no destructive osseous lesion. Numerous sclerotic foci throughout the proximal femurs, pelvis, lower thoracic and lumbar spine. There are soft tissue nodules in the bilateral rectus abdominus muscles on the right on series 2, image 48 and on the left on series 2, image 44. IMPRESSION: 1. Mild wall thickening in the colon which may be in part due to underdistention versus mild infectious or inflammatory colitis. 2. Scattered soft tissue nodules throughout the peritoneal space most pronounced in the pelvis concerning for metastatic disease. 3. Soft tissue nodules in the bilateral rectus abdominus muscles likely metastases. 4. Numerous sclerotic foci throughout the osseous structures which could reflect metastases. 5. Cholelithiasis. 6. Mild hepatomegaly. ORDERING PHYSICIAN: IFEANYI JARRETT RESIDENT PROCEDURE(s): CXR1 - CHEST XRAY 1 VIEW REASON: sob ORDER NUMBER(s): [id number], ACCESSION NUMBER(s): [id number] EXAM: XY CHEST XRAY 1 VIEW Indication:sob Technique: Single frontal view of the chest was obtained Comparison: XY CHEST PORTABLE on DOS: 03/16/23, CHEST PORTABLE on DOS: 08/11/22, CXRP on DOS: 08/11/22 FINDINGS: Lines and Tubes: None Lungs: No focal consolidation. Pleura: No effusion. No pneumothorax. Cardiomediastinal contours: Unremarkable. Atherosclerotic vascular calcifications of the thoracic aorta are noted. Bones: No acute osseous abnormality. IMPRESSION: No acute cardiopulmonary disease. Assessment/Plan Assessment/Plan Acute abdominal pain Cholelithiasis Non-specific colitis Leukocytosis, unspecified Generalized weakness Acute hypoxic respiratory failure Plan 1. Admit to telemetry unit 2. Breathing treatment 3. Pain control management 4. IV antibiotic management 5. Management of fluids and electrolytes 6. Consultation for hospitalist 7. Diagnostic test abdomen/pelvis CT 8. DVT prophylaxis -on SCDs 9. Repeat labs CBC, CMP in a.m. 10. Home medication reviewed and reconciled 11. Continue with current medical management 12. Treatment plan discussed with patient and RN. Patient verbalized understanding. Plan discussed with: Patient, Other (RN) My Orders Orders - BRIGITTE PETERSON DNP Procedure Category Date Status Time Ceftriaxone 1gm/50ml PHA 07/04/24 In Process D5w (Rocephin) 09:00 Metronidazole PHA 07/03/24 In Process 500mg/100ml (Flagyl 22:00 Hydralazine Injection PHA 07/03/24 In Process (Apresoline Inject 22:00 Levalbuterol Hcl PHA 07/04/24 In Process (Xopenex Medneb) 00:00 Famotidine Injection PHA 07/03/24 In Process (Pepcid Injection) 22:00 Allergies RAJ 07/03/24 In Process 21:52 Code Status CODE 07/03/24 Transmitted 21:52 Sodium Chloride Lock PHA 07/03/24 In Process (Saline Lock Ns) 22:00 Oxygen Per Hour RT 07/03/24 Transmitted 21:52 Hydrocodone-Acet PHA 07/03/24 In Process 5/325mg Tab (Sunburst 22:00 Ondansetron Hcl PHA 07/03/24 In Process (Zofran) 22:00 Docusate Sodium PHA 07/03/24 In Process Capsule (Colace 22:00 Fall Risk Precautions RAJ 07/03/[address] 21:52 Complete Blood Count LAB 07/04/24 Verified 04:00 Comprehensive LAB 07/04/24 Verified Metabolic Panel 04:00 Cardiac DIET 07/04/24 Transmitted Diet-2gna,Lofat,Lochol Breakfast Condition: Serious RAJ 07/03/24 In Process 21:52 Acetaminophen Tablet PHA 07/03/24 In Process (Tylenol Tablet) 22:00 Morphine Sulfate PHA 07/03/24 In Process Injection 22:00 Sequential RAJ 07/03/24 In Process Compression Device Enoxaparin Sodium PHA 07/03/24 In Process (Lovenox) 23:00 Problem List: (1) Acute abdominal pain (2) Non-specific colitis (3) Cholelithiasis (4) Generalized weakness (5) Leukocytosis, unspecified (6) Acute hypoxic respiratory failure Date of Service: Jul 03, 2024 Billing Provider: BRIGITTE PETERSON DNP Common Visit Codes: [id number] INP/OBS CARE (HIGH) BRIGITTE PETERSON DNP Jul 03, 2024 23:13
[2024-07-03 23:15] VITALS: BP 157/97; PULSE 86; RESP 17; TEMP 98.7; O2SAT 100
[2024-07-03] MEDS ORDERED: NITROGLYCERIN 0.4 MG SL TAB SL PRN (23:15)
[2024-07-03] MEDS: LEVALBUTEROL HCL 1.25 MG/3 ML NEB NEB SCH (23:52)
[2024-07-04] VITALS (11 sets, daily range): BP systolic 109–158; BP diastolic 76–92; PULSE 73–99; RESP 16–18; TEMP 97.6–98.4; O2SAT 93–100
--- NOTE | 2024-07-04 00:25 | DVHINCON2 ---
Date of service: Jul 04, 2024 Reason for Consultation Abdominal pain History of Present Illness The patient is a 69-year-old female with past medical history of arthritis, asthma, hypertension, and uterine cancer on chemotherapy, presented to [facility] ED with complaint of abdominal pain. Patient's uterine cancer diagnosed in October, hysterectomy was performed in November, patient has received six chemotherapy sessions, the last one was last week. Abdominal pain located right lower quadrant and suprapubic, sharp, non radiating and associated with vaginal bleeding and dysuria. Patient states associated intermittent SOB. Patient denies chest pain, headache, dizziness, diaphoresis, palpitation, nausea, vomiting, fever, or chills. Patient was seen and evaluated in the ED, relevant laboratory data shows WBC 16.9, hemoglobin 10.1, hematocrit 31.8, ALK phos 148. Urinalysis positive for urinary tract infection. Chest x-ray showed no acute cardiopulmonary disease. Past Medical history As per HPI Past surgical History: As per HPI Social Hx: Denies tobacco use, marijuana use or alcohol use Family Hx: Non contributory Allergies: NKDA Home meds: Reviewed Allergies: Coded Allergies: NO KNOWN ALLERGIES (Unverified , 12/17/20) Home Meds Active Scripts Amoxicillin & Pot Clavulanate (AUGMENTIN TABLET) 875 Mg Tb, 875 MG PO BID for 10 Days, #20 TAB Prov:NAVYA MORALES MD 07/04/24 Methylprednisolone (Medrol Dosepak) 4 Mg Faisal, 4 MG PO UD, #21 TAB UAD Prov:NEO KHAN MD 03/17/23 Azithromycin (ZITHROMAX TABLET) 250 Mg Tb, 250 MG PO DAILY for 5 Days, #5 TAB 0 Refills Prov:LUZ LAL MD 08/11/22 Current Medications Current Medications Medications (Trade) Dose Ordered Sig/Vickey Route PRN Reason Start Time Stop Time Status Last Admin Ceftriaxone Sodium 50 ml @ 100 mls/hr DAILY@09 IV 07/04/24 09:00 Metronidazole 100 ml @ 100 mls/hr Q8HR IV 07/03/24 22:00 07/03/24 22:00 Hydralazine HCl (Apresoline Injection) 10 mg Q6HP PRN IV SBP>150 07/03/24 22:00 Levalbuterol HCl (Xopenex Medneb) 1.25 mg Q6HR NEB 07/04/24 00:00 07/03/24 23:52 Famotidine (Pepcid Injection) 20 mg Q12HR IV 07/03/24 22:00 07/03/24 22:00 Sodium Chloride (Saline Lock Ns) 10 ml Q8HR IV 07/03/24 22:00 07/03/24 22:00 Acetaminophen/ Hydrocodone Bitart ([place] 5/325MG Tab) 1 tab Q4HP PRN PO MODERATE PAIN (4-6 PAIN SCALE) 07/03/24 22:00 Ondansetron HCl (Zofran) 4 mg Q4HP PRN IV NAUSEA / VOMITING 07/03/24 22:00 Docusate Sodium (Colace Capsule) 100 mg BIDPRN PRN PO FOR CONSTIPATION 07/03/24 22:00 Enoxaparin Sodium (Lovenox) 40 mg BID SC 07/03/24 23:00 07/03/24 23:00 Acetaminophen (Tylenol Tablet) 650 mg Q6HP PRN PO PAIN SCALE 1-3 OR TEMP>100.4 07/03/24 22:00 Morphine Sulfate 2 mg Q4HPRN PRN IV SEVERE PAIN (7-10 PAIN SCALE) 07/03/24 22:00 Nitroglycerin (Ntrostat Sublingual) 0.4 mg Q5MINP PRN SL FOR CHEST PAIN 07/03/24 23:15 Morphine Sulfate 2 mg Q30M PRN IV FOR CHEST PAIN 07/03/24 23:15 Review of Systems As per HPI, otherwise 10 organ review of systems reviewed and are unremarkable Vital Signs Vital Signs Date Time Temp Pulse Resp B/P (MAP) Pulse Ox O2 Delivery O2 Flow Rate FiO2 07/04/24 00:00 98.9 86 17 157/97 (117) 100 98.9 07/03/24 23:53 Nasal Cannula* 4 36 Physical Exam Physical Exam: General: This is a 69-year-old female appearing stated age in no acute distress. HEENT: Pupils equal and reactive to light and accommodation. Extraocular muscles intact. Mucous membranes moist. Conjunctivae [place]. Anicteric Sclera. Lungs: Bilateral air entry; no wheezes, no rhonchi or rales. Heart: Regular Rate and Rhythm. Normal S1/S2. Abdomen: Bowel Sounds Normoactive, soft, tender, non-distended, no cva tenderness. No guarding. No rebound tenderness. Extremities: No edema. Pedal pulses 2+. Neurologic: Patient alert, awake and oriented x 3. Cranial nerves II through XII intact. No focal deficits on gross sensorimotor exam. Labs/Diagnostic Data Labs Test 07/03/24 20:22 07/03/24 15:00 07/03/24 14:55 07/03/24 13:12 Range/Units Influenza Type A Antigen Negative Negative Influenza Type B Antigen Negative Negative SARS-CoV-2 Antigen (Rapid) Negative NEGATIVE Urine Color Yellow Yellow Urine Clarity Clear Clear Urine pH 5.5 5.0-9.0 Urine Specific [place] 1.023 1.001-1.035 Urine Protein 1+ H Negative Urine Ketones Negative Negative Urine Blood 1+ H Negative /uL Urine Nitrite Negative Negative Urine Bilirubin Negative Negative Urine Urobilinogen Normal Negative mg/dL Urine Leukocyte Esterase 2+ Negative /uL Urine RBC 8 0 - 4 /hpf Urine WBC 55 0 - 5 /hpf Urine Squamous Epithelial Cells Few <5 /hpf Urine Bacteria None seen None Seen /hpf Urine Mucus Few None Seen Urine Glucose Normal Normal mg/dL Lactic Acid Level 1.1 0.4-2.0 mmol/L White Blood Count 16.9 H 4.4-10.8 10^3/uL Red Blood Count 3.41 L 4.0-5.20 10^6/uL Hemoglobin 10.1 L 12.2-16.2 g/dL Hematocrit 31.8 L 36.0-46.0 % Mean Corpuscular Volume 93.3 80.0-100.0 fL Mean Corpuscular Hemoglobin 29.6 28.0-32.0 pg Mean Corpuscular Hemoglobin Concent 31.7 L 32.0-36.0 g/dL Red Cell Distribution Width 18.8 H 11.8-14.3 % Platelet Count 127 L 140-450 10^3/uL Mean Platelet Volume 10.6 6.9-10.8 fL Neutrophils (%) (Auto) 86.4 H 37.0-80.0 % Lymphocytes (%) (Auto) 8.0 L 10.0-50.0 % Monocytes (%) (Auto) 1.7 0.0-12.0 % Eosinophils (%) (Auto) 3.7 0.0-7.0 % Basophils (%) (Auto) 0.2 0.0-2.0 % Neutrophils # (Auto) 14.6 H 1.6-8.6 10 ^3/uL Lymphocytes # (Auto) 1.4 0.4-5.4 10 ^3/uL Monocytes # (Auto) 0.3 0-1.3 10 ^3/uL Eosinophils # (Auto) 0.6 0-0.8 10 ^3/uL Basophils # (Auto) 0 0-0.2 10 ^3/uL Nucleated Red Blood Cells 0.0 % Sodium Level 141 136-145 mmol/L Potassium Level 3.5 3.5-5.1 mmol/L Chloride Level 107 98-107 mmol/L Carbon Dioxide Level 29 20-31 mmol/L Anion Gap 5 5-15 Blood Urea Nitrogen 14 9-23 mg/dL Creatinine 0.83 0.550-1.02 mg/dL Glomerular Filtration Rate Calc 76 >90 mL/min BUN/Creatinine Ratio 16.9 10.0-20.0 Serum Glucose 103 74-106 mg/dL Calcium Level 9.5 8.7-10.4 mg/dL Total Bilirubin 0.9 0.2-1.0 mg/dL Aspartate Amino Transferase (AST) 17 13-40 U/L Alanine Aminotransferase (ALT) 16 7-40 U/L Alkaline Phosphatase 148 H 46-116 U/L Troponin I High Sensitivity 8 </=34 ng/L B-Type Natriuretic Peptide 9.60 0-100 pg/mL Total Protein 7.4 5.7-8.2 g/dL Albumin 4.1 3.2-4.8 g/dL Lipase 25 12-53 U/L Plan/Recommendation Abdomen/pelvis CT revealing mild wall thickening in the colon which may be in part due to underdistended versus mild infectious or inflammatory colitis, scattered soft tissue nodules throughout the peritoneal space most pronounced in the pelvis concerning for metastatic disease, cholelithiasis, mild hepatomegaly. 69 year old female with listed past medical history who presents for abdominal pain Abdominal pain, Hx uterine cancer on chemotherapy, UTI, vaginal bleed, Chronic anemia, leukocytosis = Antibiotics, urine culture, Recommend CT/Abd pelvis to assess any acute etiology of pain, [facility] [employer] [facility] evaluation given vaginal bleed, monitor H&H Asthma without exacerbation, intermittent SOB = Bronchodilators, IS , supplemental oxygen as needed, monitor off antibiotics and steroids Hypertension = optimal BP control, resume home antiHTN meds Aspiration and pressure ulcer precautions Incentive spirometry SCDs bilaterally All above discussed with the patient who verbalized agreement and understanding of current status and plan. All questions answered. Patient declined reaching out to any family for update. This medical document was created using an electronic medical record system with [employer] dictation system. Although this document has been carefully reviewed, there may still be some phonetic and typographical errors. These areas are purely typographical due to imperfections of the software programs, and do not reflect any compromise in the patient's medical care Thank you for allowing me to participate in Ms. Ricks care, please call back with Ct abd/pel results. Recommended admission to [facility] [employer] [facility] [facility] given vaginal bleed and medicine will continue to follow for medical management. Plan discussed with: Other GLENN HUSTON MD Jul 04, 2024 00:25
[2024-07-04] MEDS: hydrALAZINE HCL 20 MG/ML VL IV PRN (05:10)
[2024-07-04] MEDS: HYDROcodone-ACET 5/325MG TAB PO PRN (05:18)
[2024-07-04] MEDS: cefTRIAXone 1GM/50ML D5W 50 ML IV SCH (09:02)
[2024-07-04 10:10] LABS: Alanine Aminotransferase 15 U/L (7-40); Alkaline Phosphatase 129 U/L (46-116); Anion Gap 8 (5-15); Carbon Dioxide 24 mmol/L (20-31); Chloride 107 mmol/L (98-107); Potassium 3.3 mmol/L (3.5-5.1); Sodium 139 mmol/L (136-145)
[2024-07-04 10:11] LABS: BUN/Creatinine Ratio 17.3 (10.0-20.0); Blood Urea Nitrogen 13 mg/dL (9-23); Glucose 129 mg/dL (74-106)
[2024-07-04 10:13] LABS: Albumin 3.6 g/dL (3.2-4.8); Aspartate Aminotransferase 17 U/L (13-40)
[2024-07-04 10:14] LABS: Bilirubin, Total 0.5 mg/dL (0.2-1.0); Total Protein 6.7 g/dL (5.7-8.2)
[2024-07-04] MEDS ORDERED: AUG875T PO (13:50)
[2024-07-04 13:53] LABS: Hematocrit 30.5 % (36.0-46.0); Hemoglobin 9.9 g/dL (12.2-16.2); Mean Corpuscular Hemoglobin 30.2 pg (28.0-32.0); Mean Corpuscular Hgb Conc. 32.4 g/dL (32.0-36.0); Mean Corpuscular Volume 93.2 fL (80.0-100.0); Platelet Count (auto) 112 10^3/uL (140-450); Red Blood Cells 3.28 10^6/uL (4.0-5.20); White Blood Cell 4.9 10^3/uL (4.4-10.8)
[2024-07-04 13:57] LABS: Basophils % (manual) 0 (0.0-2.0); Blast Cells 0; Metamyelocytes % 0; Myelocytes % 0; Promyelocytes % 0; Reactive Lymphocytes 0
[2024-07-04 14:51] LABS: Band Neutrophils % (manual) 2; Eosinophils % (manual) 22 (0-7); Lymphocytes % (manual) 26 (10.0-50.0); Monocytes % (manual) 5 (0-12); Platelet Estimate Decreased
--- NOTE | 2024-07-04 17:43 | DVHDS2 ---
Discharge Summary Date of Admission Jul 03, 2024 at 23:12 Date of Discharge: Jul 04, 2024 Labs/Diagnostic Data: Laboratory Results Test 07/04/24 13:20 07/04/24 08:44 07/03/24 20:22 07/03/24 15:00 White Blood Count 4.9 10^3/uL (4.4-10.8) Red Blood Count 3.28 10^6/uL (4.0-5.20) Hemoglobin 9.9 g/dL (12.2-16.2) Hematocrit 30.5 % (36.0-46.0) Mean Corpuscular Volume 93.2 fL (80.0-100.0) Mean Corpuscular Hemoglobin 30.2 pg (28.0-32.0) Mean Corpuscular Hemoglobin Concent 32.4 g/dL (32.0-36.0) Red Cell Distribution Width 19.0 % (11.8-14.3) Platelet Count 112 10^3/uL (140-450) Mean Platelet Volume 10.3 fL (6.9-10.8) Neutrophils (%) (Auto) % (37.0-80.0) Lymphocytes (%) (Auto) % (10.0-50.0) Monocytes (%) (Auto) % (0.0-12.0) Eosinophils (%) (Auto) % (0.0-7.0) Basophils (%) (Auto) % (0.0-2.0) Neutrophils # (Auto) 10 ^3/uL (1.6-8.6) Lymphocytes # (Auto) 10 ^3/uL (0.4-5.4) Monocytes # (Auto) 10 ^3/uL (0-1.3) Differential Total Cells Counted 100.0 (100) Neutrophils % (Manual) 45 (37.0-80.0) Band Neutrophils % (Manual) 2 Lymphocytes % (Manual) 26 (10.0-50.0) Monocytes % (Manual) 5 (0-12) Eosinophils % (Manual) 22 (0-7) Basophils % (Manual) 0 (0.0-2.0) Metamyelocytes % (manual) 0 Myelocytes % (Manual) 0 Promyelocytes % (Manual) 0 Blast Cells % (Manual) 0 Reactive Lymphocytes 0 Platelet Estimate Decreased Sodium Level 139 mmol/L (136-145) Potassium Level 3.3 mmol/L (3.5-5.1) Chloride Level 107 mmol/L (98-107) Carbon Dioxide Level 24 mmol/L (20-31) Anion Gap 8 (5-15) Blood Urea Nitrogen 13 mg/dL (9-23) Creatinine 0.75 mg/dL (0.550-1.02) Glomerular Filtration Rate Calc 86 mL/min (>90) BUN/Creatinine Ratio 17.3 (10.0-20.0) Serum Glucose 129 mg/dL (74-106) Calcium Level 9.0 mg/dL (8.7-10.4) Total Bilirubin 0.5 mg/dL (0.2-1.0) Aspartate Amino Transferase (AST) 17 U/L (13-40) Alanine Aminotransferase (ALT) 15 U/L (7-40) Alkaline Phosphatase 129 U/L (46-116) Total Protein 6.7 g/dL (5.7-8.2) Albumin 3.6 g/dL (3.2-4.8) Influenza Type A Antigen Negative (Negative) Influenza Type B Antigen Negative (Negative) SARS-CoV-2 Antigen (Rapid) Negative (NEGATIVE) Urine Color Yellow (Yellow) Urine Clarity Clear (Clear) Urine pH 5.5 (5.0-9.0) Urine Specific [place] 1.023 (1.001-1.035) Urine Protein 1+ (Negative) Urine Ketones Negative (Negative) Urine Blood 1+ /uL (Negative) Urine Nitrite Negative (Negative) Urine Bilirubin Negative (Negative) Urine Urobilinogen Normal mg/dL (Negative) Urine Leukocyte Esterase 2+ /uL (Negative) Urine RBC 8 /hpf (0 - 4) Urine WBC 55 /hpf (0 - 5) Urine Squamous Epithelial Cells Few /hpf (<5) Urine Bacteria None seen /hpf (None Seen) Urine Mucus Few (None Seen) Urine Glucose Normal mg/dL (Normal) Test 07/03/24 14:55 07/03/24 13:12 Lactic Acid Level 1.1 mmol/L (0.4-2.0) Eosinophils # (Auto) 0.6 10 ^3/uL (0-0.8) Basophils # (Auto) 0 10 ^3/uL (0-0.2) Nucleated Red Blood Cells 0.0 % Troponin I High Sensitivity 8 ng/L (</=34) B-Type Natriuretic Peptide 9.60 pg/mL (0-100) Lipase 25 U/L (12-53) Other Laboratory Tests 07/04/24 13:20 07/04/24 08:44 Brief Hx & Hospital Course: The patient is a 69-year-old female with past medical history of arthritis, asthma, hypertension, and uterine cancer on chemotherapy, presented to [facility] ED with complaint of abdominal pain and shortness of breaths. Patient reports symptoms progressively get worse with multiple conditions including wheezing, productive cough, fever, chills, sweats, fatigue, generalized weakness, general malaise, orthopnea, poor appetite, lower quadrant and suprapubic severe pain, vaginal bleeding, dysuria, urinary urgency, frequency, getting worse today that prompted this visit. Patient was seen and evaluated in the ED, laboratory data shows elevated WBC 16.9, hemoglobin 10.1, hematocrit 31.8, platelets 127, sodium 141, potassium 3.5, BUN 14, creatinine 0.83, glucose 103, troponin 8, lipase 25, BNP 9.60, urinalysis positive for urinary tract infection. Chest x-ray showed no acute cardiopulmonary disease. Abdomen/pelvis CT revealing mild wall thickening in the colon which may be in part due to underdistended versus mild infectious or inflammatory colitis, scattered soft tissue nodules throughout the peritoneal space most pronounced in the pelvis concerning for metastatic disease, cholelithiasis, mild hepatomegaly. Please see medication orders section in the computer. On my assessment, patient denies chest pain, no headache, no dizziness, no diaphoresis, no palpitation, currently on oxygen, no nausea, no vomiting, no fever, no chills. Patient was admitted for further evaluation and medical management. Symptoms improved with minimal pain and tolerating diet Condition at Discharge: Good Final Diagnosis/Problems List diverticulitis Discharge Disposition: Home Discharge Instruct/Medications Diet: Regular Activity: No Restrictions, As Tolerated Discharge Statement: "Patient was advised to return to the ER or call 911 if any headaches, dizziness, shortness of breath, chest pain, abdominal pain, bleeding, fevers, or worsening of medical condition. Patient was counseled about treatment plan, medications, possible side effects, patientverbalized understanding. All questions were answered to the best of my ability. This discharge took greater then 30 minutes in planning, reviewing documentation, counseling the patient, and discussing with other team members." ASSESSMENT ASSESSMENT Assessment diverticulitis Date of Service: Jul 04, 2024 Billing Provider: NAVYA MORALES MD Common Visit Codes: 10943-KBQ/OBS DISCH DAY >30min NAVYA MORALES MD Jul 04, 2024 17:43
--- NOTE | 2024-07-17 11:01 | ECG ---
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
== END 2024-07-04 18:00 | disposition home or self-care (01) | DRG 391 ==
LOC: ER 10:16 → TELE 23:12 → TELE-WESTW 23:13 → UNDODEPER 07-04 00:47 → TELE-WESTW 07-04 03:10
PROVIDERS: ADMIT Nurse Practitioner Family; ATTEND Nurse Practitioner Family
DX: K57.32 Diverticulitis of large intestine without perforation or abscess without bleeding (principal); J96.01 Acute respiratory failure with hypoxia; N39.0 Urinary tract infection, site not specified; K52.9 Noninfective gastroenteritis and colitis, unspecified; B34.9 Viral infection, unspecified; K80.20 Calculus of gallbladder without cholecystitis without obstruction; I10 Essential (primary) hypertension; J45.909 Unspecified asthma, uncomplicated; Z90.710 Acquired absence of both cervix and uterus; Z85.42 Personal history of malignant neoplasm of other parts of uterus; Z79.899 Other long term (current) drug therapy
CPT/HCPCS: 36415; 71045; 74176; 74177; 80053; 81001; 83605; 83690; 83880; 84484; 85007; 85025; 85027; 87040; 87086; 87426; 87804; 93005; 94640; G0378; J1885; J3490

== ENCOUNTER 2024-09-04 07:51 | Inpatient (IN) | payer OTHER ==
[2024-09-04] VITALS (8 sets, daily range): BP systolic 110–133; BP diastolic 80–88; PULSE 94–120; RESP 18–26; TEMP 97.5–98.3; O2SAT 98–100
[~2024-09-04] VITALS: Ht 167.6 cm; Wt 123.3 kg
[~2024-09-04 07:51] MED LIST changes: +AUG875T PO
--- NOTE | 2024-09-04 08:40 | ED.PDOC ---
SOB-HPI HPI Comments 69 y.o female presents to the ED for a chief complaint of SOB associated with chest discomfort that started in June of 2024. Patient reports she recently completed her chemotherapy and radiation for cervical cancer and had a total hysterectomy. Upon ED arrival, patient's SPO2 read 88% on room air, was placed on 2 liters NC with saturation levels increasing to 98%. Patient denies any fever, chills, nausea, vomiting, diarrhea, abdominal pain. 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 Family History Family History: Reviewed,noncontributory to illness, Family hx of HTN Social History Smoker: Non-Smoker Alcohol: Rarely Drugs: Denies Drug Use Lives In: Home Constitutional: denies: chills, diaphoresis, fatigue, fever, malaise, sweats, weakness, others EENTM: denies: blurred vision, double vision, ear bleeding, ear discharge, ear drainage, ear pain, ear ringing, eye pain, eye redness, hearing loss, mouth pain, mouth swelling, nasal discharge, nose bleeding, nose congestion, nose pain, photophobia, tearing, throat pain, throat swelling, voice changes, others Respiratory: reports: SOB at rest, shortness of breath; denies: cough, hemoptysis, orthopnea, SOB with excertion, stridor, wheezing, others Cardiovascular: denies: chest pain, dizzy spells, diaphoresis, Dyspnea on exertion, edema, irregular heart beat, left arm pain, lightheadedness, palpitations, PND, syncope, others Gastrointestinal: denies: abdomen distended, abdominal pain, blood streaked bowels, constipated, diarrhea, dysphagia, difficulty swallowing, hematemesis, melena, nausea, poor appetite, poor fluid intake, rectal bleeding, rectal pain, vomiting, others Genitourinary: denies: abnormal vagina bleeding, burning, dyspareunia, dysuria, flank pain, frequency, hematuria, incontinence, pain, , vagina discharge, urgency, others Neurological: denies: dizziness, fainting, headache, left sided numbness, left sided weakness, numbness, paresthesia, pre-existing deficit, right sided numbness, right sided weakness, seizure, speech problems, tingling, tremors, weakness, others Musculoskeletal: denies: back pain, gout, joint pain, joint swelling, muscle pain, muscle stiffness, neck pain, others Integumetry: denies: bruises, change in color, change in hair/nails, dryness, laceration, lesions, lumps, rash, wounds, others Allergic/Immunocompromised: denies: Difficulty Healing, Frequent Infections, Hives, Itching, others Hematologic/Lymphatic: denies: anemia, blood clots, easy bleeding, easy bruising, swollen glands, others Endocrine: denies: excessive hunger, excessive sweating, excessive thirst, excessive urination, flushing, intolerance to cold, intolerance to heat, unexplained weight gain, unexplained weight loss, others Psychiatric: denies: anxiety, bipolar disorder, depression, hopeless, panic disorder, schizophrenia, sleepless, suicidal, others All Other Systems: Reviewed and Negative Physical Exam General Appearance: No Apparent Distress, Normal HEENT: Normal ENT Inspection, Pharynx Normal, TMs Normal Neck: Full Range of Motion, Non-Tender, Normal, Normal Inspection Respiratory: Other (wet sound, bilateral lungs ) Cardiovascular: No Edema, No JVD, No Murmur, No Gallop, Normal Peripheral Pulses, Regular Rate/Rhythm Breast Exam: Deferred Gastrointestinal: No Organomegaly, Non Tender, No Pulsatile Mass, Normal Bowel Sounds, Soft Genitalia: Deferred Pelvic: Deferred Rectal: Deferred Extremities: No calf tenderness, Normal capillary refill, Normal inspection, Normal range of motion, Non-tender, No pedal edema Musculoskeletal : Apperance: Normal 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 Was a procedure done?: No Differential Dx Differential Diagnosis: Asthma, Bronchitis, CHF, COPD, Pneumonia, Pulmonary Embolism, Respiratory Distress, URI X-Ray, Labs, Meds, VS Vital Signs Date Time Temp Pulse Resp B/P (MAP) Pulse Ox O2 Delivery O2 Flow Rate FiO2 09/04/24 10:40 20 96 Nasal Cannula* 2 28 09/04/24 09:19 118/87 09/04/24 09:15 120 26 118/87 (97) 99 09/04/24 09:15 120 26 99 Nasal Cannula* 2 28 09/04/24 08:15 98.8 125 22 138/78 (98) 98 09/04/24 08:14 22 98 Nasal Cannula* 2 28 Lab Test 09/04/24 10:25 09/04/24 09:33 09/04/24 09:30 Range/Units White Blood Count 5.8 4.4-10.8 10^3/uL Red Blood Count 3.76 L 4.0-5.20 10^6/uL Hemoglobin 11.0 L 12.2-16.2 g/dL Hematocrit 34.2 L 36.0-46.0 % Mean Corpuscular Volume 91.1 80.0-100.0 fL Mean Corpuscular Hemoglobin 29.2 28.0-32.0 pg Mean Corpuscular Hemoglobin Concent 32.1 32.0-36.0 g/dL Red Cell Distribution Width 18.4 H 11.8-14.3 % Platelet Count 255 140-450 10^3/uL Mean Platelet Volume 8.6 6.9-10.8 fL Neutrophils (%) (Auto) 71.5 37.0-80.0 % Lymphocytes (%) (Auto) 13.0 10.0-50.0 % Monocytes (%) (Auto) 10.1 0.0-12.0 % Eosinophils (%) (Auto) 4.7 0.0-7.0 % Basophils (%) (Auto) 0.7 0.0-2.0 % Neutrophils # (Auto) 4.1 1.6-8.6 10 ^3/uL Lymphocytes # (Auto) 0.7 0.4-5.4 10 ^3/uL Monocytes # (Auto) 0.6 0-1.3 10 ^3/uL Eosinophils # (Auto) 0.3 0-0.8 10 ^3/uL Basophils # (Auto) 0 0-0.2 10 ^3/uL Nucleated Red Blood Cells 0.3 % Prothrombin Time 11.6 9.3-11.8 sec Prothrombin Time INR 1.10 0.9-1.15 Activated Partial Thromboplast Time 20.9 L 24.5-34.5 SEC D-Dimer, Quantitative 10.60 H 0.0-0.49 mg/L FEU Sodium Level 141 136-145 mmol/L Potassium Level 3.8 3.5-5.1 mmol/L Chloride Level 102 98-107 mmol/L Carbon Dioxide Level 30 20-31 mmol/L Anion Gap 9 5-15 Blood Urea Nitrogen 17 9-23 mg/dL Creatinine 1.44 H 0.550-1.02 mg/dL Glomerular Filtration Rate Calc 39 >90 mL/min BUN/Creatinine Ratio 11.8 10.0-20.0 Serum Glucose 112 H 74-106 mg/dL Calcium Level 9.6 8.7-10.4 mg/dL Magnesium Level 2.1 1.6-2.6 mg/dL Total Bilirubin 0.5 0.2-1.0 mg/dL Aspartate Amino Transferase (AST) 26 13-40 U/L Alanine Aminotransferase (ALT) 15 7-40 U/L Alkaline Phosphatase 83 46-116 U/L Troponin I High Sensitivity 10 </=34 ng/L B-Type Natriuretic Peptide 12.29 0-100 pg/mL Total Protein 6.8 5.7-8.2 g/dL Albumin 3.7 3.2-4.8 g/dL Urine Color Yellow Yellow Urine Clarity Clear Clear Urine pH 5.5 5.0-9.0 Urine Specific [place] 1.016 1.001-1.035 Urine Protein Trace H Negative Urine Ketones Negative Negative Urine Blood Negative Negative /uL Urine Nitrite Negative Negative Urine Bilirubin Negative Negative Urine Urobilinogen Normal Negative mg/dL Urine Leukocyte Esterase 1+ Negative /uL Urine RBC 2 0 - 4 /hpf Urine WBC 5 0 - 5 /hpf Urine Squamous Epithelial Cells Few <5 /hpf Urine Bacteria Few H None Seen /hpf Urine Hyaline Casts Mod 0 - 2 /lpf Urine Mucus Few None Seen Urine Glucose Normal Normal mg/dL Influenza Type A Antigen Negative Negative Influenza Type B Antigen Negative Negative SARS-CoV-2 Antigen (Rapid) Negative NEGATIVE Current Medications Medications (Trade) Dose Ordered Sig/Vickey Route Start Time Stop Time Status Last Admin Furosemide (Lasix Injection) 40 mg ONCE ONCE IV 09/04/24 08:30 09/04/24 08:32 DC 09/04/24 09:19 Albuterol (Ventolin Medneb) 5 mg ONCE ONCE NEB 09/04/24 10:00 09/04/24 10:01 DC 09/04/24 10:40 Ipratropium Taylor (Atrovent Medneb) 0.5 mg ONCE ONCE NEB 09/04/24 10:00 09/04/24 10:01 DC 09/04/24 10:40 X-Ray, Labs, Meds, VS Comment This 69-year-old female presents to the emergency room secondary to cough and shortness of breath. Her vitals were benign. She has known metastatic uterine cancer. As such, CT of the chest, abdomen pelvis was ordered. She continues to have metastatic disease to her bone. However, there does not appear to be any metastatic disease to her lungs. She does not have any obvious lung pathology. As such, I will discharge the patient home with a prescription for Tessalon Perles and ProAir. She was asked to consider [id number] cold medication. She would follow up with her oncologist and PCP 2 days or return to the ER for new/worse/worsening symptoms. Time of 1ST Reevaluation: 08:33 Reevaluation 1ST: Unchanged Patient Education/Counseling: Diagnosis, Treatment, Prognosis Family Education/Counseling: No Family Present Additional Information The following tests were ordered, and results were reviewed by me: CT chest, CT ABD, EKG, PHA I reviewed and agreed with the following test results read by other providers: : CT chest, CT ABD, EKG I discussed treatment and results with medical personnel and patient [place] [id number] Ph: [phone] DIAGNOSTIC IMAGING Diagnostic Imaging Report : [id number] Signed PATIENT: ELAN CASTILLO ACCT: [id number] UNIT: [id number] : 1955 LOC: ER ROOM / BED: / AGE / SEX: 69 / F ADM STATUS: REG ER SERVICE 8 ORDERING PHYSICIAN: JOHN MERAZ MD PROCEDURE(s): CTCAP - CHST AB PEL WO CON-NO IV/ORAL REASON: abdomenal pain. hx of uterine cancer s/p chemo radiation, ORDER NUMBER(s): [id number], ACCESSION NUMBER(s): [id number] CT CHST AB PEL WO CON-NO IV/ORAL INDICATION: abdomenal pain. hx of uterine cancer s/p chemo radiation, EXAM DATE: 09/04/2024 08:36 AM COMPARISON: CT CT AB PEL WO CON-NO ORAL OR IV on DOS: 07/03/24 RADIATION DOSE: CTDIvol: 25.55 mGy, DLP: 1636.76 mGy*cm PROCEDURE: Helical CT images were obtained of the chest, abdomen, and pelvis without intravenous contrast. Sagittal and coronal reconstructions are provided. ORAL CONTRAST: None. ADDITIONAL IMAGES / REFORMATS: None All CT scans at this medical facility are performed using dose modulation techniques as appropriate to a performed exam including the following: Automated exposure control was utilized; adjustment of the MA and/or KV according to patient size; and use of iterative reconstruction technique. FINDINGS: CHEST: BONES: Multiple small sclerotic foci throughout the axial skeleton. CHEST WALL: Normal. SOFT TISSUES:Normal. MEDIASTINUM: Surgical nicki are seen at the GE junction. HEART: Prominent pericardial lymph nodes. VESSELS: Normal. LYMPH NODES: Normal. PLEURA: Small bilateral pleural effusion. AIRWAYS: Normal. LUNG: Bibasilar atelectasis is seen. ABDOMEN AND PELVIS: BONES: Multiple small sclerotic foci throughout the axial skeleton. LIVER: Nodular liver contour with subcentimeter hypodense cystic lesions. GALLBLADDER AND BILIARY TREE: Gallstone in the gallbladder. No intra- or ext rahepatic biliary ductal dilation. PANCREAS: Normal. SPLEEN: Normal. BOWEL: No small bowel dilation visualized. Decompressed colon. ADRENALS: Normal. KIDNEYS AND URETER: Similar 2.6 cm left kidney cyst. BLADDER: Normal. REPRODUCTIVE ORGANS: Absent. LYMPH NODES:No lymphadenopathy. PERITONEUM: Interval new trace ascites, omental nodules, and omental caking. VESSELS: Normal RETROPERITONEUM: Normal. ABDOMINAL WALL: Normal. IMPRESSION: Interval new trace ascites, omental nodules, and omental caking can be seen with metastatic disease. Prominent pericardial lymph nodes. Multiple small sclerotic foci throughout the axial skeleton, similar to prior and can be seen with metastatic disease. Cholelithiasis. ATED BY: MAICO PARK MD DICTATED DATE/TIME: 09/04/24902 SIGNED BY: MAICO PARK MD SIGNED DATE/TIME: 09/04/24902 CC: Departure 1 Departure Time of Disposition: 11:55 Impression: Primary Impression: Viral syndrome Additional Impression: Cough Disposition: HOME / SELF CARE / HOMELESS Condition: Good Discharged With: Self Critical Care Note Critical Care Time?: No Stability Stability form required: No I personally scribed for JOHN MERAZ MD ([facility]) on 09/04/24 at 08:40. E lectronically submitted by Linsey Smith ([facility]). I personally scribed for JOHN MERAZ MD ([facility]) on 09/04/24 at 10:46. Elec tronically submitted by Linsey Smith ([facility]). JOHN MERAZ MD Sep 04, 2024 08:40
--- NOTE | 2024-09-04 09:05 | DVH ---
CT CHST AB PEL WO CON-NO IV/ORAL INDICATION: abdomenal pain. hx of uterine cancer s/p chemo radiation, EXAM DATE: 09/04/2024 08:36 AM COMPARISON: CT CT AB PEL WO CON-NO ORAL OR IV on DOS: 07/03/24 RADIATION DOSE: CTDIvol: 25.55 mGy, DLP: 1636.76 mGy*cm PROCEDURE: Helical CT images were obtained of the chest, abdomen, and pelvis without intravenous cont rast. Sagittal and coronal reconstructions are provided. ORAL CONTRAST: None. ADDITIONAL IMAGES / REFORMATS: None All CT scans at this medical facility are performed using dose modulation techniques as appropriate t o a performed exam including the following: Automated exposure control was utilized; adjustment of th e MA and/or KV according to patient size; and use of iterative reconstruction technique. FINDINGS: CHEST: BONES: Multiple small sclerotic foci throughout the axial skeleton. CHEST WALL: Normal. SOFT TISSUES:Normal. MEDIASTINUM: Surgical nicki are seen at the GE junction. HEART: Prominent pericardial lymph nodes. VESSELS: Normal. LYMPH NODES: Normal. PLEURA: Small bilateral pleural effusion. AIRWAYS: Normal. LUNG: Bibasilar atelectasis is seen. ABDOMEN AND PELVIS: BONES: Multiple small sclerotic foci throughout the axial skeleton. LIVER: Nodular liver contour with subcentimeter hypodense cystic lesions. GALLBLADDER AND BILIARY TREE: Gallstone in the gallbladder. No intra- or extrahepatic biliary ductal dilation. PANCREAS: Normal. SPLEEN: Normal. BOWEL: No small bowel dilation visualized. Decompressed colon. ADRENALS: Normal. KIDNEYS AND URETER: Similar 2.6 cm left kidney cyst. BLADDER: Normal. REPRODUCTIVE ORGANS: Absent. LYMPH NODES:No lymphadenopathy. PERITONEUM: Interval new trace ascites, omental nodules, and omental caking. VESSELS: Normal RETROPERITONEUM: Normal. ABDOMINAL WALL: Normal. IMPRESSION: Interval new trace ascites, omental nodules, and omental caking can be seen with metastatic disease. Prominent pericardial lymph nodes. Multiple small sclerotic foci throughout the axial skeleton, similar to prior and can be seen with me tastatic disease. Cholelithiasis.
[2024-09-04] MEDS: FUROSEMIDE 40 MG/4 ML VIAL IV ONE (09:19)
[2024-09-04 10:30] LABS: Rapid Influenza A Negative (Negative); Rapid Influenza B Negative (Negative)
[2024-09-04 10:31] LABS: COVID19 ANTIGEN SOFIA FIA NEGATIVE (NEGATIVE)
[2024-09-04] MEDS: ALBUTEROL SULF 2.5 MG/0.5ML(0.5%) NEB SOLN NEB ONE (10:40)
[2024-09-04] MEDS: IPRATROPIUM BROM 0.5 MG/2.5ML INH SOL NEB ONE (10:40)
[2024-09-04 10:50] LABS: Basophils # (auto) 0 10 ^3/uL (0-0.2); Basophils % (auto) 0.7 % (0.0-2.0); Eosinophils # (auto) 0.3 10 ^3/uL (0-0.8); Eosinophils % (auto) 4.7 % (0.0-7.0); Hematocrit 34.2 % (36.0-46.0); Lymphocytes # (auto) 0.7 10 ^3/uL (0.4-5.4); Mean Corpuscular Hemoglobin 29.2 pg (28.0-32.0); Mean Corpuscular Hgb Conc. 32.1 g/dL (32.0-36.0); Mean Corpuscular Volume 91.1 fL (80.0-100.0); Monocytes # (auto) 0.6 10 ^3/uL (0-1.3); Monocytes % (auto) 10.1 % (0.0-12.0); Neutrophils # (auto) 4.1 10 ^3/uL (1.6-8.6); Neutrophils % (auto) 71.5 % (37.0-80.0); Nucleated Red Blood Cells % 0.3 %; Platelet Count (auto) 255 10^3/uL (140-450); Red Blood Cells 3.76 10^6/uL (4.0-5.20); Red Cell Distribution Width 18.4 % (11.8-14.3); White Blood Cell 5.8 10^3/uL (4.4-10.8)
[2024-09-04 11:01] LABS: Alanine Aminotransferase 15 U/L (7-40); Albumin 3.7 g/dL (3.2-4.8); Alkaline Phosphatase 83 U/L (46-116); Anion Gap 9 (5-15); Aspartate Aminotransferase 26 U/L (13-40); BUN/Creatinine Ratio 11.8 (10.0-20.0); Blood Urea Nitrogen 17 mg/dL (9-23); Calcium 9.6 mg/dL (8.7-10.4); Carbon Dioxide 30 mmol/L (20-31); Chloride 102 mmol/L (98-107); Magnesium 2.1 mg/dL (1.6-2.6); Potassium 3.8 mmol/L (3.5-5.1); Sodium 141 mmol/L (136-145)
[2024-09-04 11:02] LABS: Bilirubin, Total 0.5 mg/dL (0.2-1.0); Total Protein 6.8 g/dL (5.7-8.2)
[2024-09-04 11:03] LABS: INR 1.1 (0.9-1.15); Partial Thromboplastin Time 20.9 SEC (24.5-34.5); Prothrombin Time 11.6 sec (9.3-11.8)
[2024-09-04 11:04] LABS: Glucose 112 mg/dL (74-106)
[2024-09-04 11:06] LABS: Urine Bacteria FEW /hpf (None Seen); Urine Blood Negative /uL (Negative); Urine Clarity Clear (Clear); Urine Color Yellow (Yellow); Urine Hyaline Cast MOD /lpf (0 - 2); Urine Mucus FEW (None Seen); Urine Protein, UAD TRACE (Negative); Urine Specific Gravity 1.016 (1.001-1.035); Urine Squamous Epithelial Cell FEW /hpf (<5); Urine Urobilinogen Normal (Negative); Urine WBC 5 /hpf (0 - 5); Urine pH 5.5 (5.0-9.0)
[2024-09-04] MEDS ORDERED: BENZ100C97 PO (11:57)
[2024-09-04] MEDS ORDERED: ALBU1AER4 IN ×2 (11:57→12:07)
[2024-09-04] MEDS ORDERED: cefTRIAXone 1GM/50ML D5W 50 ML IV ONE (13:30)
[2024-09-04] MEDS: ONDANSETRON HCL 4 MG/2 ML VIAL IV ONE (13:32)
[2024-09-04] MEDS: MORPHINE SULFATE 4 MG/ML SYR/VIAL IV ONE (13:35)
[2024-09-04] MEDS: ENOXAPARIN SOD 100 MG/1 ML SYRINGE SC ONE (14:00)
[2024-09-04] MEDS ORDERED: VANCOMYCIN PER PHARMACY 0 MG IV SCH (14:15)
[2024-09-04] MEDS: levoFLOXacin 500MG 100 ML IV ONE (14:15)
--- NOTE | 2024-09-04 14:28 | ECG ---
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
[2024-09-04] MEDS ORDERED: VANCOMYCIN 1GM/250ML KIT 250 ML IV ONE (15:00)
[2024-09-04] MEDS: IOHEXOL 350 MG/ML 100ML IJ ONE (16:01)
[2024-09-04] MEDS ORDERED: MORPHINE SULFATE INJ 2 MG/ml SYRG IV PRN (16:15)
[2024-09-04] MEDS ORDERED: NITROGLYCERIN 0.4 MG SL TAB SL PRN (16:15)
[2024-09-04] MEDS ORDERED: MORPHINE SULFATE 4 MG/ML SYR/VIAL IV PRN (16:15)
--- NOTE | 2024-09-04 16:27 | DVHHP2 ---
History of Present Illness Reason for Visit: Shortness of breath and chest pain History of Present Illness Trduy Fox is a 69-year-old female with past medical history of hypertension, asthma, arthritis, uterine cancer, cervical cancer who finished chemo last week, hysterectomy, and right knee replacement who presents to the ED today with shortness of breath and chest pain x2 weeks. Patient states that couple weeks ago she develop the symptoms while she was sitting down and complains of aching constant 4/10 pain. Patient also states that she saw her oncologist recently and primary care physician and was advised to come in to ED for evaluation. Patient states that she was given cough medication and antibiotics which did not work. Patient states that she takes blood pressure medication but does not know which one. Patient denies any fevers, chills, abdominal pain, nausea, vomiting, diarrhea, lightheadedness, headache, and dizziness. Cardiovascular: HTN Pulmonary: Asthma Past Medical History Arthritis Cervical/uterine cancer was on chemo Past Surgical History: Hysterectomy Past Surgical History Right knee replacement Family History: Hypertension Family History Mom and sister hypertension Smoke: No ALCOHOL: none Drugs: None Lives: Alone Domestic Violence: Neg Review of Systems Constitutional: No: Fever, Chills, Sweats, Weakness, Malaise, Other Eyes: No: Pain, Vision change, Conjunctivae inflammation, Eyelid inflammation, Other, Redness ENT: No: Ear pain, Ear discharge, Nose pain, Nose discharge, Nose congestion, Mouth pain, Mouth swelling, Throat pain, Throat swelling, Other Respiratory: Shortness of breath; No: Cough, Dry, SOB with excertion, Wheezing, Hemoptysis, Pleuritic Pain, Sputum, Wheezing, Other Cardiovascular: Chest Pain; No: Palpitations, Orthopnea, Paroxysmal Noc. Dyspnea, Edema, Lt Headedness, Other Gastrointestinal: No: Nausea, Vomiting, Abdominal Pain, Diarrhea, Constipation, Melena, Hematochezia, Other Genitourinary: No Dysuria, No Frequency, No Incontinence, No Hematuria, No Retention, No Other Musculoskeletal: No: other, neck pain, shoulder pain, arm pain, back pain, hand pain, leg pain, foot pain Skin: No: Rash, Lesions, Jaundice, Bruising, Other Neurological: No: Weakness, Numbness, Incoordination, Change in speech, Confusion, Seizures, Other Allergies: Coded Allergies: NO KNOWN ALLERGIES (Unverified , 12/17/20) Medications Current Medications Medications Dose Ordered Sig/Vickey Route Start Time Stop Time Status Last Admin Dose Admin Albuterol 2.5 mg Q6HWA NEB 09/04/24 18:00 Albuterol 2.5 mg Q4HPRN PRN NEB 09/04/24 13:30 Ipratropium [place] 0.5 mg Q6HWA NEB 09/04/24 18:00 Ipratropium [place] 0.5 mg Q4HPRN PRN NEB 09/04/24 13:30 Methylprednisolone Sodium Succinate 40 mg BID IV 09/04/24 22:00 Famotidine 20 mg DAILY IV 09/05/24 10:00 Hydralazine HCl 10 mg Q6HP PRN IV 09/04/24 13:30 Enoxaparin Sodium 110 mg Q12HR SC 09/04/24 22:00 Vancomycin HCl 0 ml @ 0 mls/hr UD IV 09/04/24 14:15 Levofloxacin/ Dextrose 100 ml @ 100 mls/hr DAILY IV 09/05/24 10:00 Aspirin 81 mg DAILY PO 09/05/24 10:00 Atorvastatin Calcium 40 mg HS PO 09/04/24 22:00 UNV Morphine Sulfate 2 mg Q30MP PRN IV 09/04/24 16:15 UNV Acetaminophen 650 mg Q6HP PRN PO 09/04/24 16:15 UNV Nitroglycerin 0.4 mg Q5MINP PRN SL 09/04/24 16:15 UNV Ondansetron HCl 4 mg Q4HP PRN IV 09/04/24 16:15 UNV Nitroglycerin 0.4 mg Q5MINP PRN SL 09/04/24 16:15 UNV Morphine Sulfate 2 mg Q30M PRN IV 09/04/24 16:15 UNV Exam Vital Signs Vital Signs Date Time Temp Pulse Resp B/P (MAP) Pulse Ox O2 Delivery O2 Flow Rate FiO2 09/04/24 15:23 98.0 99 18 128/81 99 2.0 28 98.0 09/04/24 14:11 Nasal Cannula General Appearance: Alert, Oriented X3, Cooperative, No acute distress HEENT: Atraumatic, PERRLA, EOMI, Mucous membr. moist/pink Respiratory: Normal air movement Cardiovascular: Normal S1, Normal S2 Abdominal: Normal bowel sounds, Soft, No tenderness, No hepatospenomegaly, No masses Extremities: No clubbing, No cyanosis, No edema, Normal pulses, No tenderness/swelling Skin: No rashes, No breakdown, No significant lesion Neuro: Normal gait, Normal speech, Strength at 5/5 X4 ext, Normal tone, Sensation intact Psych/Mental Status: Mental status NL, Mood NL Labs/Xrays Labs Test 09/04/24 10:25 09/04/24 09:33 09/04/24 09:30 Range/Units White Blood Count 5.8 4.4-10.8 10^3/uL Red Blood Count 3.76 L 4.0-5.20 10^6/uL Hemoglobin 11.0 L 12.2-16.2 g/dL Hematocrit 34.2 L 36.0-46.0 % Mean Corpuscular Volume 91.1 80.0-100.0 fL Mean Corpuscular Hemoglobin 29.2 28.0-32.0 pg Mean Corpuscular Hemoglobin Concent 32.1 32.0-36.0 g/dL Red Cell Distribution Width 18.4 H 11.8-14.3 % Platelet Count 255 140-450 10^3/uL Mean Platelet Volume 8.6 6.9-10.8 fL Neutrophils (%) (Auto) 71.5 37.0-80.0 % Lymphocytes (%) (Auto) 13.0 10.0-50.0 % Monocytes (%) (Auto) 10.1 0.0-12.0 % Eosinophils (%) (Auto) 4.7 0.0-7.0 % Basophils (%) (Auto) 0.7 0.0-2.0 % Neutrophils # (Auto) 4.1 1.6-8.6 10 ^3/uL Lymphocytes # (Auto) 0.7 0.4-5.4 10 ^3/uL Monocytes # (Auto) 0.6 0-1.3 10 ^3/uL Eosinophils # (Auto) 0.3 0-0.8 10 ^3/uL Basophils # (Auto) 0 0-0.2 10 ^3/uL Nucleated Red Blood Cells 0.3 % Prothrombin Time 11.6 9.3-11.8 sec Prothrombin Time INR 1.10 0.9-1.15 Activated Partial Thromboplast Time 20.9 L 24.5-34.5 SEC D-Dimer, Quantitative 10.60 H 0.0-0.49 mg/L FEU Sodium Level 141 136-145 mmol/L Potassium Level 3.8 3.5-5.1 mmol/L Chloride Level 102 98-107 mmol/L Carbon Dioxide Level 30 20-31 mmol/L Anion Gap 9 5-15 Blood Urea Nitrogen 17 9-23 mg/dL Creatinine 1.44 H 0.550-1.02 mg/dL Glomerular Filtration Rate Calc 39 >90 mL/min BUN/Creatinine Ratio 11.8 10.0-20.0 Serum Glucose 112 H 74-106 mg/dL Calcium Level 9.6 8.7-10.4 mg/dL Magnesium Level 2.1 1.6-2.6 mg/dL Total Bilirubin 0.5 0.2-1.0 mg/dL Aspartate Amino Transferase (AST) 26 13-40 U/L Alanine Aminotransferase (ALT) 15 7-40 U/L Alkaline Phosphatase 83 46-116 U/L Troponin I High Sensitivity 10 </=34 ng/L B-Type Natriuretic Peptide 12.29 0-100 pg/mL Total Protein 6.8 5.7-8.2 g/dL Albumin 3.7 3.2-4.8 g/dL Urine Color Yellow Yellow Urine Clarity Clear Clear Urine pH 5.5 5.0-9.0 Urine Specific [place] 1.016 1.001-1.035 Urine Protein Trace H Negative Urine Ketones Negative Negative Urine Blood Negative Negative /uL Urine Nitrite Negative Negative Urine Bilirubin Negative Negative Urine Urobilinogen Normal Negative mg/dL Urine Leukocyte Esterase 1+ Negative /uL Urine RBC 2 0 - 4 /hpf Urine WBC 5 0 - 5 /hpf Urine Squamous Epithelial Cells Few <5 /hpf Urine Bacteria Few H None Seen /hpf Urine Hyaline Casts Mod 0 - 2 /lpf Urine Mucus Few None Seen Urine Glucose Normal Normal mg/dL Influenza Type A Antigen Negative Negative Influenza Type B Antigen Negative Negative SARS-CoV-2 Antigen (Rapid) Negative NEGATIVE CT CHST AB PEL WO CON-NO IV/ORAL FINDINGS: CHEST: BONES: Multiple small sclerotic foci throughout the axial skeleton. CHEST WALL: Normal. SOFT TISSUES:Normal. MEDIASTINUM: Surgical nicki are seen at the GE junction. HEART: Prominent pericardial lymph nodes. VESSELS: Normal. LYMPH NODES: Normal. PLEURA: Small bilateral pleural effusion. AIRWAYS: Normal. LUNG: Bibasilar atelectasis is seen. ABDOMEN AND PELVIS: BONES: Multiple small sclerotic foci throughout the axial skeleton. LIVER: Nodular liver contour with subcentimeter hypodense cystic lesions. GALLBLADDER AND BILIARY TREE: Gallstone in the gallbladder. No intra- or extrahepatic biliary ductal dilation. PANCREAS: Normal. SPLEEN: Normal. BOWEL: No small bowel dilation visualized. Decompressed colon. ADRENALS: Normal. KIDNEYS AND URETER: Similar 2.6 cm left kidney cyst. BLADDER: Normal. REPRODUCTIVE ORGANS: Absent. LYMPH NODES:No lymphadenopathy. PERITONEUM: Interval new trace ascites, omental nodules, and omental caking. VESSELS: Normal RETROPERITONEUM: Normal. ABDOMINAL WALL: Normal. IMPRESSION: Interval new trace ascites, omental nodules, and omental caking can be seen with metastatic disease. Prominent pericardial lymph nodes. Multiple small sclerotic foci throughout the axial skeleton, similar to prior and can be seen with metastatic disease. Cholelithiasis. Assessment/Plan Assessment/Plan Assessment/Plan: Acute on chronic asthma exacerbation likely secondary to pneumonia Atypical chest pain likely secondary to PNA ADRIA UTI IV Abx labs ekg COVID Flu CT abdomen pelvis noted CT chest Antiemetics Pain management Respiratory treatments Lasix Mg UA D-dimer elevated PT PTT BNP Troponin negative EKG IV steroids HTN P.r.n. antihypertensives Continue home medications Morbid obesity Counseled patient on lifestyle modifications, diet, and exercise FEN/PPX diet IVf DVT prophylaxis-Lovenox PUD prophylaxis - famotidine Admit patient to tele Home medications reconciled Discussed plan of care with patient and nurse Plan discussed with: Patient My Orders Orders - DANIEL COONEY Procedure Category Date Status Time Albuterol Medneb PHA 09/04/24 In Process (Ventolin Medneb) 18:00 Albuterol Medneb PHA 09/04/24 In Process (Ventolin Medneb) 13:30 Ipratropium Medneb PHA 09/04/24 In Process (Atrovent Medneb) 18:00 Ipratropium Medneb PHA 09/04/24 In Process (Atrovent Medneb) 13:30 Methylprednisolone PHA 09/04/24 In Process Sod Succ (Solu Medrol 22:00 Famotidine Injection PHA 09/05/24 In Process (Pepcid Injection) 10:00 Hydralazine Injection PHA 09/04/24 In Process (Apresoline Inject 13:30 Enoxaparin Sodium PHA 09/04/24 In Process (Lovenox) 22:00 Vancomycin Per PHA 09/04/24 In Process Pharmacy 14:[address] 09/04/24 Taken Contrast 15:38 Levofloxacin 500mg PHA 09/05/24 In Process (Levaquin 500mg/ 100m 10:00 Vancomycin 1.5gm/300ml PHA 09/04/24 In Process 16:15 Vancomycin Per RAJ 09/04/24 In Process Pharmacy Protoc 16:12 Basic Metabolic Panel LAB 09/05/24 Verified 04:00 Vancomycin,Random LAB 09/05/24 Verified 04:00 Admit ADMIT 09/04/24 Transmitted 16:09 Code Status CODE 09/04/24 Transmitted 16:09 Vital Signs [facility] 09/04/24 In Process 16:09 Smoked Meat Preparer [facility] 09/04/24 In Process 16:09 Cardiac DIET 09/04/24 Transmitted Diet-2gna,Lofat,Lochol Dinner Aspirin Tablet [facility] 09/05/24 In Process 10:00 Atorvastatin (Lipitor) PHA 09/04/24 Logged 22:00 Morphine Sulfate PHA 09/04/24 Logged Injection 16:15 Acetaminophen Tablet PHA 09/04/24 Logged (Tylenol Tablet) 16:15 Complete Blood Count LAB 09/05/24 Verified 04:00 Comprehensive LAB 09/05/24 Verified Metabolic Panel 04:00 Nitroglycerin PHA 09/04/24 Logged Sublingual (Ntrostat 16:15 Ondansetron Hcl PHA 09/04/24 Logged (Zofran) 16:15 Electrocardigram EKG 09/05/24 Logged 04:00 Alum & Mag PHA 09/04/24 Logged Hydrox-Simethicone 16:15 Troponin-I Hs LAB 09/04/24 Logged 16:09 Cardiac RAJ 09/04/24 In Process [facility] - Outpa Nitroglycerin PHA 09/04/24 Logged Sublingual (Ntrostat 16:15 Morphine Sulfate PHA 09/04/24 Logged Injection 16:15 Stat Ekg For Chest [facility] 09/04/24 In Process Pain 16:09 Notify Of Changes [facility] 09/04/24 In Process From Base 16:09 Presiding Steward For [facility] 09/04/24 In Process 24 Hours 16:09 Emergency Dysrhythmia [facility] 09/04/24 In Process Protocol 16:09 Rhythm Strips Once RAJ 09/04/24 In Process Every Shift 16:09 Oxygen By Nasal RT 09/04/24 Transmitted Cannula 16:09 Date of Service: Sep 04, 2024 Billing Provider: DANIEL COONEY Common Visit Codes: [id number] INP/OBS CARE (HIGH) DANIEL COONEY Sep 04, 2024 16:27
--- NOTE | 2024-09-04 16:42 | DVH ---
PROCEDURE: CT CT ANGIO CHEST CONTRAST 09/04/2024 04:00 PM INDICATION: r/o pe COMPARISON: CT CT ANGIO CHEST CONTRAST on DOS: 03/16/23 TECHNIQUE: Coverage: Thorax IV contrast: Administered Phases: Arterial Multiplanar 3-D Maximum Intensity Projection images (MIP) reconstructions were created by the techncary carroll in the coronal and sagittal planes as part of the CT angiography protocol. Adverse events: None Medication laboratory values were reviewed to verify the patient meets criteria for contrast administ ration. All CT scans at this medical facility are performed using dose modulation techniques as appropriate t o a performed exam including the following: Automated exposure control was utilized; adjustment of th e MA and/or KV according to patient size; and use of iterative reconstruction technique. Radiation dose: CTDIvol 27 mGy, DLP 846 mGy*cm. FINDINGS: Cardiovascular: Inadequate evaluation of the pulmonary arteries. Prominent pulmonary arterial trunk r eflecting underlying pulmonary arterial hypertension. Aorta is normal in caliber. Atherosclerotic petra cification of the aortic arch noted. The heart is normal in size. Lungs: Moderate-sized right and small left pleural effusions with adjacent pulmonary opacities likely subsegmental or compressive atelectasis. No pneumothorax. The airways are patent. Thyroid: Unremarkable Esophagus: Chain sutures/ calcifications in distal esophagus near GE junction noted. Lymphatics: No hilar or mediastinal lymphadenopathy. Bones/soft tissues: No acute abnormality. Several subcentimeter sclerotic foci are seen in the thorac ic vertebrae, ribs, bilateral humeral heads and left glenoid most likely metastasis. Upper abdomen: Ascites and omental infiltration/ nodularity. Please refer to the report of the accom panying abdominal CT scan for more detailed information. Other: None. IMPRESSION: 1. Inadequate opacification of the pulmonary arteries nondiagnostic for evaluation of pulmonary embol ism. Recommend further evaluation with V/Q scan if there is high clinical suspicion for pulmonary em bolism. 2. Bilateral pleural effusions, right greater than left mild adjacent pulmonary opacities likely comp ressive atelectasis. 3. Suggestion of pulmonary arterial hypertension. 4. Numerous subcentimeter axial and appendicular sclerotic foci most likely osteoblastic metastasis. Further evaluation with whole-body bone scan could be completed if clinically warranted.
[2024-09-04] MEDS: VANCOMYCIN 1.5GM/300ML 300 ML IV ONE (16:55)
[2024-09-04] MEDS: MAALOX PLUS or MAALOX 30 ML PO ONE (17:24)
[2024-09-04] MEDS: ACETAMINOPHEN 325 MG TAB PO PRN (18:55)
[2024-09-04] MEDS: IPRATROPIUM BROM 0.5 MG/2.5ML INH SOL NEB SCH (19:06)
[2024-09-04] MEDS: ALBUTEROL SULF 2.5 MG/0.5ML(0.5%) NEB SOLN NEB SCH (19:06)
[2024-09-04] MEDS: SODIUM CHLORIDE 0.9% 1,000 ML IV SCH (20:46)
[2024-09-04] MEDS: ATORVASTATIN 20 MG TAB PO SCH (22:00)
[2024-09-04] MEDS: methylPREDNISolone SOD SUCC 40 MG/ML VL IV SCH (22:00)
[2024-09-04] MEDS: ENOXAPARIN SOD 100 MG/1 ML SYRINGE SC SCH (22:00)
[2024-09-04] MEDS ORDERED: ALBU2TAB11 PO (22:27)
[2024-09-04] MEDS: ONDANSETRON HCL 4 MG/2 ML VIAL IV PRN (22:41)
[2024-09-05] VITALS (15 sets, daily range): BP systolic 129–154; BP diastolic 78–97; PULSE 85–109; RESP 17–20; TEMP 97.4–98.1; O2SAT 91–100
[2024-09-05 06:14] LABS: Alkaline Phosphatase 76 U/L (46-116); Anion Gap 10 (5-15); Aspartate Aminotransferase 22 U/L (13-40); BUN/Creatinine Ratio 10.2 (10.0-20.0); Blood Urea Nitrogen 17 mg/dL (9-23); Calcium 9.2 mg/dL (8.7-10.4); Carbon Dioxide 27 mmol/L (20-31); Chloride 103 mmol/L (98-107); Sodium 140 mmol/L (136-145)
[2024-09-05 06:15] LABS: Albumin 3.5 g/dL (3.2-4.8); Bilirubin, Total 0.4 mg/dL (0.2-1.0); Total Protein 6.6 g/dL (5.7-8.2)
[2024-09-05 07:12] LABS: Basophils # (auto) 0 10 ^3/uL (0-0.2); Basophils % (auto) 0.2 % (0.0-2.0); Eosinophils # (auto) 0 10 ^3/uL (0-0.8); Eosinophils % (auto) 0.2 % (0.0-7.0); Hematocrit 31.2 % (36.0-46.0); Lymphocytes # (auto) 0.4 10 ^3/uL (0.4-5.4); Lymphocytes % (auto) 9.6 % (10.0-50.0); Mean Corpuscular Hemoglobin 29.8 pg (28.0-32.0); Mean Corpuscular Hgb Conc. 32.2 g/dL (32.0-36.0); Mean Corpuscular Volume 92.5 fL (80.0-100.0); Monocytes # (auto) 0.1 10 ^3/uL (0-1.3); Monocytes % (auto) 3.2 % (0.0-12.0); Neutrophils # (auto) 3.4 10 ^3/uL (1.6-8.6); Neutrophils % (auto) 86.8 % (37.0-80.0); Nucleated Red Blood Cells % 0.2 %; Platelet Count (auto) 221 10^3/uL (140-450); Red Blood Cells 3.38 10^6/uL (4.0-5.20); Red Cell Distribution Width 18.1 % (11.8-14.3); White Blood Cell 3.9 10^3/uL (4.4-10.8)
[2024-09-05 08:25] LABS: Glucose 148 mg/dL (74-106)
[2024-09-05 08:36] LABS: Alanine Aminotransferase 12 U/L (7-40)
[2024-09-05] MEDS ORDERED: cefTRIAXone 1GM/50ML D5W 50 ML IV SCH (09:00)
[2024-09-05] MEDS ORDERED: levoFLOXacin 500MG 100 ML IV SCH ×2 (10:00)
[2024-09-05] MEDS: levoFLOXacin 250MG 50 ML IV SCH (10:06)
[2024-09-05] MEDS: FAMOTIDINE (10MG/ML) 2ML VL IV SCH (10:07)
[2024-09-05] MEDS: ENOXAPARIN SOD 120 MG/0.8 ML SYRINGE SC SCH (10:07)
[2024-09-05] MEDS: ASPirin 81 mg TAB PO SCH (10:08)
[2024-09-05] MEDS ORDERED: VANCOMYCIN 750MG VIAL 750 MG in D5W 5% 100 ML IV SCH (16:00)
--- NOTE | 2024-09-05 16:54 | DVHPN2 ---
Subjective Resuming the care of the patient from today onwards. This is a 69-year-old female with known history of hypertension, history of uterine cancer/cervical cancer status post chemotherapy, chronic arthritis initially presented the hospital with chest pain shortness breath found to have acute hypoxic respiratory failure. Patient currently denies any chest pain shortness of breath. Patient complained of constipation. Reviewed: Care Plan Changes from previous H/P or p: No Changes Eyes: No Pain, No Vision change, No Conjunctivae inflammation, No Eyelid inflammation, No Other, No Redness ENT: No Ear pain, No Ear discharge, No Nose pain, No Nose discharge, No Nose congestion, No Mouth pain, No Mouth swelling, No Throat pain, No Throat swelling, No Other Cardiovascular: Chest Pain; No Palpitations, No Orthopnea, No Paroxysmal Noc. Dyspnea, No Edema, No Lt Headedness, No Other Respiratory: No Cough, No Dry; Shortness of breath; No SOB with excertion, No Wheezing, No Hemoptysis, No Pleuritic Pain, No Sputum, No Other Gastrointestinal: No Nausea, No Vomiting, No Abdominal Pain, No Diarrhea, No Constipation, No Melena, No Hematochezia, No Other Genitourinary: No Dysuria, No Frequency, No Incontinence, No Hematuria, No Retention, No Other Musculoskeletal: No other, No neck pain, No shoulder pain, No arm pain, No back pain, No hand pain, No leg pain, No foot pain Skin: No Rash, No Lesions, No Jaundice, No Bruising, No Other Objective Vitals Vital Signs Date Time Temp Pulse Resp B/P (MAP) Pulse Ox O2 Delivery O2 Flow Rate FiO2 09/05/24 13:00 97.6 90 18 154/78 (103) 99 97.6 09/05/24 11:37 Nasal Cannula* 3 32 Intake/Output Intake and Output 09/05/24 07:00 # Voids 2 Exam HEENT pupils are extra Neck is supple CV is S1-S2 regular rate and rhythm Respiratory bilateral diminished breath sounds at lung bases GI positive bowel sound Extremity no edema CAP SEWER no motor deficit Medications Current Medications Medications Dose Ordered Sig/Vickey Route Start Time Stop Time Status Last Admin Dose Admin Albuterol 2.5 mg Q6HWA NEB 09/04/24 18:00 09/05/24 11:37 2.5 MG Albuterol 2.5 mg Q4HPRN PRN NEB 09/04/24 13:30 Ipratropium [place] 0.5 mg Q6HWA [facility] 09/04/24 18:00 09/05/24 11:37 0.5 MG Ipratropium [place] 0.5 mg Q4HPRN PRN [facility] 09/04/24 13:30 Methylprednisolone Sodium Succinate 40 mg BID IV 09/04/24 22:00 09/05/24 10:06 40 MG Famotidine 20 mg DAILY IV 09/05/24 10:00 09/05/24 10:07 20 MG Hydralazine HCl 10 mg Q6HP PRN IV 09/04/24 13:30 Vancomycin HCl 0 ml @ 0 mls/hr UD IV 09/04/24 14:15 Aspirin 81 mg DAILY PO 09/05/24 10:00 09/05/24 10:08 81 MG Atorvastatin Calcium 40 mg HS PO 09/04/24 22:00 09/04/24 22:00 40 MG Morphine Sulfate 2 mg Q30MP PRN IV 09/04/24 16:15 Acetaminophen 650 mg Q6HP PRN PO 09/04/24 16:15 09/05/24 13:30 650 MG Nitroglycerin 0.4 mg Q5MINP PRN 09/04/24 16:15 Ondansetron HCl 4 mg Q4HP PRN IV 09/04/24 16:15 09/04/24 22:41 4 MG Nitroglycerin 0.4 mg Q5MINP PRN 09/04/24 16:15 UNV Morphine Sulfate 2 mg Q30M PRN IV 09/04/24 16:15 UNV Sodium Chloride 1,000 ml @ 75 mls/hr [id number] IV 09/04/24 16:30 09/04/24 20:46 75 MLS/HR Levofloxacin 50 ml @ 50 mls/hr DAILY@1000,1100 IV 09/05/24 10:00 09/05/24 11:45 50 MLS/HR Vancomycin HCl 750 mg/Dextrose 100 ml @ 100 mls/hr Q16H IV 09/05/24 16:00 Docusate Sodium 100 mg BID PO 09/05/24 22:00 Sennosides 17.2 mg QHSP PRN PO 09/05/24 16:45 Lactulose 30 ml Q6HPRN PRN PO 09/05/24 16:45 Heparin Sodium (Porcine) 5,000 units Q12HR SC 09/05/24 22:00 UNV Laboratory Results Laboratory Tests 09/05/24 05:18 Chemistry Test 09/05/24 05:18 Albumin 3.5 g/dL (3.2-4.8) Calcium Level 9.2 mg/dL (8.7-10.4) Total Protein 6.6 g/dL (5.7-8.2) LFT Test 09/05/24 05:18 Alanine Aminotransferase (ALT) 12 U/L (7-40) Alkaline Phosphatase 76 U/L (46-116) Aspartate Amino Transferase (AST) 22 U/L (13-40) Total Bilirubin 0.4 mg/dL (0.2-1.0) Urinalysis Test 09/04/24 09:33 Urine Color Yellow (Yellow) Urine Clarity Clear (Clear) Urine pH 5.5 (5.0-9.0) Urine Specific [place] 1.016 (1.001-1.035) Urine Protein Trace (Negative) H Urine Ketones Negative (Negative) Urine Blood Negative /uL (Negative) Urine Nitrite Negative (Negative) Urine Bilirubin Negative (Negative) Urine Urobilinogen Normal mg/dL (Negative) Urine Leukocyte Esterase 1+ /uL (Negative) Urine RBC 2 /hpf (0 - 4) Urine WBC 5 /hpf (0 - 5) Urine Squamous Epithelial Cells Few /hpf (<5) Urine Bacteria Few /hpf (None Seen) H Urine Hyaline Casts Mod /lpf (0 - 2) Urine Mucus Few (None Seen) Urine Glucose Normal mg/dL (Normal) Assessment/Plan Assessment/Plan 69-year-old female with known history of hypertension, history of uterine and cervical cancer status post chemotherapy initially was in the hospital chest pain shortness breath found to have 1. Acute hypoxic respiratory failure suspect secondary to pulmonary hypertension, PE is inconclusive as per CT angio 2. Pulmonary hypertension 3. Uterine cancer/cervical cancer status post chemotherapy 4. Abdominal distention/bloating bed CT evidence of nucleus ascites/omentum nodules and omental caking suspect metastasis 5. Multiple sclerotic foci throughout the axial skeleton suspected metastases -DC therapeutic Lovenox, V/Q scan, Doppler venous ultrasound bilateral lower extremity rule out DVT -outpatient whole-body scan and follow up with the Hematology Oncology to to follow up on metastatic disease- Med nebs, O2 supplementation Plan discussed with: Patient My Orders Orders - NEO KHAN MD Procedure Category Date Status Time Docusate Sodium PHA 09/05/24 In Process Capsule (Colace 22:00 Senna Pod Tablet PHA 09/05/24 In Process (Senokot Tablet) 16:45 Lactulose Oral PHA 09/05/24 In Process 16:45 Nm Vq Scan NM 09/05/24 Logged 16:42 Bilat Lower Dvt US 09/05/24 Logged 16:42 Heparin Sodium PHA 09/05/24 Logged (Porcine) 22:00 *Consult CONS 09/05/24 Transmitted / 16:47 Azithromycin 500mg/ PHA 09/05/24 Verified 250ml (Zithromax 50 17:00 Date of Service: Sep 05, 2024 Billing Provider: NEO KHAN MD Common Visit Codes: [id number] INP/OBS CARE(MOD) NEO KHAN MD Sep 05, 2024 16:54
[2024-09-05] MEDS: LACTULOSE 20Gm/30ML SOLN PO PRN (17:23)
[2024-09-05] MEDS: AZITHROMYCIN 500MG/ 250ML 250 ML IV SCH (18:21)
--- NOTE | 2024-09-05 18:32 | DVH ---
CLINICAL HISTORY: DVT COMPARISON: US BILAT LOWER DVT on DOS: 03/16/23 TECHNIQUE: Bilateral lower extremity venous duplex exam was performed. Grayscale, color flow, and spe ctral waveform analysis was performed. The deep veins of the lower extremity were evaluated for compr ession, phasic flow, and augmentation. FINDINGS: This examination demonstrates normal compression, augmentation, and phasic flow of both low er extremities. No evidence for echogenic thrombus within the common femoral, femoral, and popliteal veins. In addition, the calf veins demonstrated normal compression and color flow. IMPRESSION: There is no evidence for DVT in either lower extremity.
[2024-09-05] MEDS: SENNA 8.6 MG TAB PO PRN (21:40)
[2024-09-05] MEDS: HEPARIN SODIUM (PORCINE) 5000 UNITS/ML 1ML VIAL SC SCH (21:51)
--- NOTE | 2024-09-05 21:58 | DVHINCON2 ---
Date of service: Sep 05, 2024 Referring Physician Neo Khan MD Reason for Consultation Pulmonary hypertension. History of Present Illness A 69-year-old woman with past medical history of hypertension, asthma, arthritis, uterine cancer, and cervical cancer (finished chemo last week), presented to ED on 09/04/24 with shortness of breath and chest pain x2 weeks. Pain is described as aching, constant, 4/10 in severity. Per patient, she saw her oncologist recently and PCP and was advised to come in to ED for evaluation. She got cough medication and antibiotics which she states did not help. Pt takes blood pressure medication but does not know which one. Denies fevers, chills, abdominal pain, n/v/d, lightheadedness, headache or other associated symptoms. CT of chest/abdomen/pelvis demonstrated small bilateral pleural effusions and bibasilar atelectasis; multiple sclerotic foci throughout the axial skeleton, suspect metastases. She was admitted for further care, and pu lmonary consultation is requested for evaluation and management d/t the above findings. Review of Systems: 14-point review of systems negative unless otherwise noted above. Past Medical History: Hypertension, asthma, arthritis, uterine cancer, cervical cancer (completed chemo last week) Past Surgical History: Hysterectomy Right knee replacement Medications: Reviewed. Allergies: No known drug allergies. Family History: Hypertension. Social History: Nonsmoker. No alcohol or illicit drug use. Family History: Hypertension G8 MOTHER Allergies: Coded Allergies: NO KNOWN ALLERGIES (Unverified , 12/17/20) Home Meds Reported Medications Albuterol Sulfate (Albuterol Sulfate) 2 Mg Tab, 2 MG PO Q6HP PRN for SHORTNESS OF BREATH, MG 09/04/24 Discontinued Scripts Amoxicillin & Pot Clavulanate (AUGMENTIN TABLET) 875 Mg Tb, 875 MG PO BID for 10 Days, #20 TAB Prov:NAVYA MORALES MD 07/04/24 Methylprednisolone (Medrol Dosepak) 4 Mg Faisal, 4 MG PO UD, #21 TAB UAD Prov:NEO KHAN MD 03/17/23 Current Medications Current Medications Medications (Trade) Dose Ordered Sig/Vickey Route PRN Reason Start Time Stop Time Status Last Admin Ceftriaxone Sodium 50 ml @ 100 mls/hr DAILY@09 IV 09/05/24 09:00 09/04/24 14:00 DC Methylprednisolone Sodium Succinate (Solu Medrol) 40 mg BID IV 09/04/24 22:00 09/05/24 10:06 Famotidine (Pepcid Injection) 20 mg DAILY IV 09/05/24 10:00 09/05/24 10:07 Enoxaparin Sodium (Lovenox) 110 mg Q12HR SC 09/04/24 22:00 09/05/24 08:56 DC 09/04/24 22:00 Levofloxacin/ Dextrose 100 ml @ 100 mls/hr DAILY IV 09/05/24 10:00 09/04/24 16:08 DC Levofloxacin/ Dextrose 100 ml @ 100 mls/hr DAILY IV 09/05/24 10:00 09/05/24 09:33 DC Aspirin 81 mg DAILY PO 09/05/24 10:00 09/05/24 10:08 Atorvastatin Calcium (Lipitor) 40 mg HS PO 09/04/24 22:00 09/04/24 22:00 Enoxaparin Sodium (Lovenox) 110 mg Q12HR SC 09/05/24 10:00 09/05/24 16:45 DC 09/05/24 10:07 Levofloxacin 50 ml @ 50 mls/hr DAILY@1000,1100 IV 09/05/24 10:00 09/05/24 11:45 Vancomycin HCl 750 mg/Dextrose 100 ml @ 100 mls/hr Q16H IV 09/05/24 16:00 09/05/24 16:50 DC Docusate Sodium (Colace Capsule) 100 mg BID PO 09/05/24 22:00 Sennosides (Senokot Tablet) 17.2 mg QHSP PRN PO FOR CONSTIPATION 09/05/24 16:45 Lactulose 30 ml Q6HPRN PRN PO FOR CONSTIPATION 09/05/24 16:45 09/05/24 17:23 Heparin Sodium (Porcine) 5,000 units Q12HR SC 09/05/24 22:00 Azithromycin 250 ml @ 125 mls/hr DAILY@1700 IV 09/05/24 17:00 09/05/24 18:21 Vital Signs Vital Signs Date Time Temp Pulse Resp B/P (MAP) Pulse Ox O2 Delivery O2 Flow Rate FiO2 09/05/24 21:00 97.6 91 20 153/87 (109) 96 97.6 09/05/24 18:17 Nasal Cannula 3.0 09/05/24 18:17 32 Physical Exam Gen.: Patient lying in bed in no apparent distress. On supplemental oxygen. Head: Normocephalic, atraumatic. Eyes: EOMI/PERRLA. Ears: Normal hearing. Normal anatomy. Neck/trachea: Trachea midline, supple. Nose: Normal external anatomy. Mouth: Moist mucous membranes. Chest: Decreased air entry bilaterally. No wheezing or rhonchi. Cardiovascular: Positive S1, positive S2. Regular rate and rhythm. Abdomen: Positive bowel sounds in all 4 quadrants. Soft, non-tender, non- distended. : Deferred. Rectal: Deferred. Skin: Warm, dry. Intact. Extremities: 2+ radial pulses bilaterally. No lower extremity edema. Neuro: Awake, alert, oriented x3. No gross motor or sensory deficits. Cranial nerves II through XII intact. Gait not assessed. Labs/Diagnostic Data Labs Test 09/05/24 05:18 09/04/24 16:35 09/04/24 10:25 09/04/24 09:33 Range/Units White Blood Count 3.9 #L 4.4-10.8 10^3/uL Red Blood Count 3.38 L 4.0-5.20 10^6/uL Hemoglobin 10.0 L 12.2-16.2 g/dL Hematocrit 31.2 L 36.0-46.0 % Mean Corpuscular Volume 92.5 80.0-100.0 fL Mean Corpuscular Hemoglobin 29.8 28.0-32.0 pg Mean Corpuscular Hemoglobin Concent 32.2 32.0-36.0 g/dL Red Cell Distribution Width 18.1 H 11.8-14.3 % Platelet Count 221 140-450 10^3/uL Mean Platelet Volume 8.5 6.9-10.8 fL Neutrophils (%) (Auto) 86.8 H 37.0-80.0 % Lymphocytes (%) (Auto) 9.6 L 10.0-50.0 % Monocytes (%) (Auto) 3.2 0.0-12.0 % Eosinophils (%) (Auto) 0.2 0.0-7.0 % Basophils (%) (Auto) 0.2 0.0-2.0 % Neutrophils # (Auto) 3.4 1.6-8.6 10 ^3/uL Lymphocytes # (Auto) 0.4 0.4-5.4 10 ^3/uL Monocytes # (Auto) 0.1 0-1.3 10 ^3/uL Eosinophils # (Auto) 0 0-0.8 10 ^3/uL Basophils # (Auto) 0 0-0.2 10 ^3/uL Nucleated Red Blood Cells 0.2 % Sodium Level 140 136-145 mmol/L Potassium Level 4.0 3.5-5.1 mmol/L Chloride Level 103 98-107 mmol/L Carbon Dioxide Level 27 20-31 mmol/L Anion Gap 10 5-15 Blood Urea Nitrogen 17 9-23 mg/dL Creatinine 1.66 H 0.550-1.02 mg/dL Glomerular Filtration Rate Calc 33 >90 mL/min BUN/Creatinine Ratio 10.2 10.0-20.0 Serum Glucose 148 H 74-106 mg/dL Calcium Level 9.2 8.7-10.4 mg/dL Total Bilirubin 0.4 0.2-1.0 mg/dL Aspartate Amino Transferase (AST) 22 13-40 U/L Alanine Aminotransferase (ALT) 12 7-40 U/L Alkaline Phosphatase 76 46-116 U/L Total Protein 6.6 5.7-8.2 g/dL Albumin 3.5 3.2-4.8 g/dL Random Vancomycin Level 15.1 H 5-10 ug/mL Troponin I High Sensitivity 5 </=34 ng/L Prothrombin Time 11.6 9.3-11.8 sec Prothrombin Time INR 1.10 0.9-1.15 Activated Partial Thromboplast Time 20.9 L 24.5-34.5 SEC D-Dimer, Quantitative 10.60 H 0.0-0.49 mg/L FEU Magnesium Level 2.1 1.6-2.6 mg/dL B-Type Natriuretic Peptide 12.29 0-100 pg/mL Urine Color Yellow Yellow Urine Clarity Clear Clear Urine pH 5.5 5.0-9.0 Urine Specific [place] 1.016 1.001-1.035 Urine Protein Trace H Negative Urine Ketones Negative Negative Urine Blood Negative Negative /uL Urine Nitrite Negative Negative Urine Bilirubin Negative Negative Urine Urobilinogen Normal Negative mg/dL Urine Leukocyte Esterase 1+ Negative /uL Urine RBC 2 0 - 4 /hpf Urine WBC 5 0 - 5 /hpf Urine Squamous Epithelial Cells Few <5 /hpf Urine Bacteria Few H None Seen /hpf Urine Hyaline Casts Mod 0 - 2 /lpf Urine Mucus Few None Seen Urine Glucose Normal Normal mg/dL Test 09/04/24 09:30 Range/Units Influenza Type A Antigen Negative Negative Influenza Type B Antigen Negative Negative SARS-CoV-2 Antigen (Rapid) Negative NEGATIVE Assessment Impression: Acute hypoxic respiratory failure Pulmonary hypertension Pleural effusions Atelectasis Uterine cancer/cervical cancer, s/p chemotherapy Ascites Multiple sclerotic foci throughout axial skeleton, suspect metastases Morbid obesity BMI 41.5 Plan: Supplemental oxygen Titrate to keep O2 sats above 92%. CT of chest/abdomen/pelvis demonstrated small bilateral pleural effusions and bibasilar atelectasis; multiple small sclerotic foci throughout the axial s [place], similar to prior and can be seen with metastatic disease Continue bronchodilators. Continue antibiotics IV steroids Incentive spirometry Lactulose Monitor renal function. Monitor electrolytes. Supplement as necessary. Monitor ins and outs. Pain control Avoid oversedation Follow up Oncology recs. Diet and lifestyle modifications for weight reduction Morbid obesity - complicates all care GI prophylaxis - Pepcid DVT prophylaxis - Heparin. Prognosis: Poor given patient's multiple co-morbidities. Rest of plan per hospitalist and other consultants. A total of 76 minutes of clinical care time was spent reviewing the patient record, examining the patient, making a diagnostic and therapeutic plan, discussing this plan with the medical personnel, following up on diagnostic studies and following the patient for clinical stability excluding any and all procedures. At least 50% of this time was spent in direct, [id number] contact. Thank you, Dr. Khan, for allowing me to participate in this patient's care. Further recommendations will depend on the patient's clinical course. Please do not hesitate to contact me if you have any questions or concerns. This medical document was created using an electronic medical record system with [employer] dictation system. Although these documentations are being carefully reviewed, there may still be some phonetic and typographical changes. The errors are purely typographical, due to imperfection on the software program, and do not reflect any compromise in the patient's medical care. Plan discussed with: Patient, Other (RN/MD Khan) JAMES HEARD MD Sep 05, 2024 21:58
[2024-09-05] MEDS: DOCUSATE SOD 100 MG CAP PO SCH (22:00)
[2024-09-06] VITALS (17 sets, daily range): BP systolic 144–161; BP diastolic 83–115; PULSE 84–100; RESP 14–24; TEMP 97.3–97.9; O2SAT 95–100
[2024-09-06] MEDS: IPRATROPIUM BROM 0.5 MG/2.5ML INH SOL NEB PRN (01:36)
[2024-09-06] MEDS: ALBUTEROL SULF 2.5 MG/0.5ML(0.5%) NEB SOLN NEB PRN (01:36)
[2024-09-06] MEDS: HYDROcodone-ACET 5/325MG TAB PO PRN (10:29)
[2024-09-06] MEDS: FLEET ENEMA(ADULT) 135 ML PR ONE ×2 (14:11→17:08)
--- NOTE | 2024-09-06 16:43 | DVHPN2 ---
Subjective This is a 69-year-old female with known history of hypertension, history of uterine cancer/cervical cancer status post chemotherapy, chronic arthritis initially presented the hospital with chest pain shortness breath found to have acute hypoxic respiratory failure. Patient currently denies any chest pain shortness of breath. Patient is still complaining of constipation currently getting enema. V/Q scan is pending, Doppler ultrasound shows no evidence of firing DVT. Reviewed: Care Plan Changes from previous H/P or p: No Changes Eyes: No Pain, No Vision change, No Conjunctivae inflammation, No Eyelid inflammation, No Other, No Redness ENT: No Ear pain, No Ear discharge, No Nose pain, No Nose discharge, No Nose congestion, No Mouth pain, No Mouth swelling, No Throat pain, No Throat swelling, No Other Cardiovascular: Chest Pain; No Palpitations, No Orthopnea, No Paroxysmal Noc. Dyspnea, No Edema, No Lt Headedness, No Other Respiratory: No Cough, No Dry; Shortness of breath; No SOB with excertion, No Wheezing, No Hemoptysis, No Pleuritic Pain, No Sputum, No Other Gastrointestinal: No Nausea, No Vomiting, No Abdominal Pain, No Diarrhea, No Constipation, No Melena, No Hematochezia, No Other Genitourinary: No Dysuria, No Frequency, No Incontinence, No Hematuria, No Retention, No Other Musculoskeletal: No other, No neck pain, No shoulder pain, No arm pain, No back pain, No hand pain, No leg pain, No foot pain Skin: No Rash, No Lesions, No Jaundice, No Bruising, No Other Objective Vitals Vital Signs Date Time Temp Pulse Resp B/P (MAP) Pulse Ox O2 Delivery O2 Flow Rate FiO2 09/06/24 13:00 97.3 86 18 161/101 (121) 96 97.3 09/06/24 11:53 Nasal Cannula* 2 28 Intake/Output Intake and Output 09/06/24 07:00 Intake Total 2890 ml Output Total 900 ml Balance 1990 ml Intake Oral 1840 ml IV Total 1050 ml Output Urine Total 900 ml # Voids 3 Exam HEENT pupils are extra Neck is supple CV is S1-S2 regular rate and rhythm Respiratory bilateral diminished breath sounds at lung bases GI positive bowel sound Extremity no edema [employer] no motor deficit Medications Current Medications Medications Dose Ordered Sig/Vickey Route Start Time Stop Time Status Last Admin Dose Admin Albuterol 2.5 mg Q6HWA [facility] 09/04/24 18:00 09/06/24 11:53 2.5 MG Albuterol 2.5 mg Q4HPRN PRN [facility] 09/04/24 13:30 09/06/24 01:36 2.5 MG Ipratropium [place] 0.5 mg Q6HWA [facility] 09/04/24 18:00 09/06/24 11:53 0.5 MG Ipratropium [place] 0.5 mg Q4HPRN PRN [facility] 09/04/24 13:30 09/06/24 01:36 0.5 MG Methylprednisolone Sodium Succinate 40 mg BID IV 09/04/24 22:00 09/06/24 10:27 40 MG Famotidine 20 mg DAILY IV 09/05/24 10:00 09/06/24 10:27 20 MG Hydralazine HCl 10 mg Q6HP PRN IV 09/04/24 13:30 Aspirin 81 mg DAILY PO 09/05/24 10:00 09/06/24 10:28 81 MG Atorvastatin Calcium 40 mg HS PO 09/04/24 22:00 09/05/24 21:40 40 MG Morphine Sulfate 2 mg Q30MP PRN IV 09/04/24 16:15 Acetaminophen 650 mg Q6HP PRN PO 09/04/24 16:15 09/05/24 21:41 650 MG Nitroglycerin 0.4 mg Q5MINP PRN 09/04/24 16:15 Ondansetron HCl 4 mg Q4HP PRN IV 09/04/24 16:15 09/04/24 22:41 4 MG Nitroglycerin 0.4 mg Q5MINP PRN 09/04/24 16:15 UNV Morphine Sulfate 2 mg Q30M PRN IV 09/04/24 16:15 UNV Sodium Chloride 1,000 ml @ 75 mls/hr [id number] IV 09/04/24 16:30 09/06/24 14:11 75 MLS/HR Levofloxacin 50 ml @ 50 mls/hr DAILY@1000,1100 IV 09/05/24 10:00 09/06/24 10:27 50 MLS/HR Docusate Sodium 100 mg BID PO 09/05/24 22:00 09/06/24 10:28 100 MG Sennosides 17.2 mg QHSP PRN PO 09/05/24 16:45 09/05/24 21:40 17.2 MG Lactulose 30 ml Q6HPRN PRN PO 09/05/24 16:45 09/06/24 10:27 30 ML Heparin Sodium (Porcine) 5,000 units Q12HR SC 09/05/24 22:00 09/06/24 10:33 5,000 UNITS Azithromycin 250 ml @ 125 mls/hr DAILY@1700 IV 09/05/24 17:00 09/06/24 14:11 125 MLS/HR Acetaminophen/ Hydrocodone Bitart 1 tab Q4HPRN PRN PO 09/06/24 10:00 09/06/24 10:29 1 TAB Laboratory Results Laboratory Tests 09/05/24 05:18 Urinalysis Test 09/04/24 09:33 Urine Color Yellow (Yellow) Urine Clarity Clear (Clear) Urine pH 5.5 (5.0-9.0) Urine Specific [place] 1.016 (1.001-1.035) Urine Protein Trace (Negative) H Urine Ketones Negative (Negative) Urine Blood Negative /uL (Negative) Urine Nitrite Negative (Negative) Urine Bilirubin Negative (Negative) Urine Urobilinogen Normal mg/dL (Negative) Urine Leukocyte Esterase 1+ /uL (Negative) Urine RBC 2 /hpf (0 - 4) Urine WBC 5 /hpf (0 - 5) Urine Squamous Epithelial Cells Few /hpf (<5) Urine Bacteria Few /hpf (None Seen) H Urine Hyaline Casts Mod /lpf (0 - 2) Urine Mucus Few (None Seen) Urine Glucose Normal mg/dL (Normal) Assessment/Plan Assessment/Plan 69-year-old female with known history of hypertension, history of uterine and cervical cancer status post chemotherapy initially was in the hospital chest pain shortness breath found to have 1. Acute hypoxic respiratory failure suspect secondary to pulmonary hypertension, PE is inconclusive as per CT angio 2. Pulmonary hypertension 3. Uterine cancer/cervical cancer status post chemotherapy 4. Abdominal distention/bloating bed CT evidence of nucleus ascites/omentum nodules and omental caking suspect metastasis 5. Multiple sclerotic foci throughout the axial skeleton suspected metastases - V/Q scan, Doppler venous ultrasound bilateral lower extremity ruled out DVT -outpatient whole-body scan and follow up with the Hematology Oncology to to follow up on metastatic disease- -Med nebs, O2 supplementation Plan discussed with: Patient, Other My Orders Orders - NEO KHAN MD Procedure Category Date Status Time Nm Vq Scan NM 09/05/24 Logged 16:42 Bilat Lower Dvt US 09/05/24 Resulted 16:42 Heparin Sodium PHA 09/05/24 In Process (Porcine) 22:00 *Consult CONS 09/05/24 Transmitted / 16:47 Azithromycin 500mg/ PHA 09/05/24 In Process 250ml (Zithromax 50 17:00 Hydrocodone-Acet PHA 09/06/24 In Process 5/325mg Tab (Roberts 10:00 Fleet Enema Adult PHA 09/06/24 Logged 16:45 Date of Service: Sep 06, 2024 Billing Provider: NEO KHAN MD Common Visit Codes: [id number] INP/OBS CARE(MOD) NEO KHAN MD Sep 06, 2024 16:43
--- NOTE | 2024-09-06 18:24 | MEDREC ---
[facility] Intervention Section I [facility] Intervention: Duplication of therapy (AZITHROMYCIN AND LEVOFLOXACIN = DUPLICATION OF THERAPY - PLEASE CONSIDER REVIEW COURSE OF THERAPY ) LB MACIAS PHARMACIST Sep 06, 2024 18:24
[2024-09-06] MEDS: hydrALAZINE HCL 20 MG/ML VL IV PRN (20:23)
--- NOTE | 2024-09-06 21:14 | DVHPN2 ---
Progress Note - Dictate Date Seen: Sep 06, 2024 Medical Necessity Reason Pt with a Central, PICC or Fol: No Subjective Patient seen and examined at bedside. Remains on supplemental oxygen Overnight events reviewed. vital signs Vital Sign Date Time Temp Pulse Resp B/P (MAP) Pulse Ox O2 Delivery O2 Flow Rate FiO2 09/06/24 20:23 152/83 09/06/24 20:00 92 16 Nasal Cannula* 2 09/06/24 19:54 98 09/06/24 16:53 97.6 97.6 Total Intake and Output 09/05/24 09/05/24 09/06/24 15:00 23:00 07:00 Intake Total 290 ml 800 ml 1800 ml Output Total 900 ml Balance 290 ml -100 ml 1800 ml medications Current Medications Medications Dose Ordered Sig/Vickey Route Start Time Stop Time Status Last Admin Dose Admin Albuterol 2.5 mg Q6HWA NEB 09/04/24 18:00 09/06/24 19:48 2.5 MG Albuterol 2.5 mg Q4HPRN PRN NEB 09/04/24 13:30 09/06/24 01:36 2.5 MG Ipratropium [place] 0.5 mg Q6HWA NEB 09/04/24 18:00 09/06/24 19:48 0.5 MG Ipratropium [place] 0.5 mg Q4HPRN PRN NEB 09/04/24 13:30 09/06/24 01:36 0.5 MG Methylprednisolone Sodium Succinate 40 mg BID IV 09/04/24 22:00 09/06/24 10:27 40 MG Famotidine 20 mg DAILY IV 09/05/24 10:00 09/06/24 10:27 20 MG Hydralazine HCl 10 mg Q6HP PRN IV 09/04/24 13:30 09/06/24 20:23 10 MG Aspirin 81 mg DAILY PO 09/05/24 10:00 09/06/24 10:28 81 MG Atorvastatin Calcium 40 mg HS PO 09/04/24 22:00 09/05/24 21:40 40 MG Morphine Sulfate 2 mg Q30MP PRN IV 09/04/24 16:15 Acetaminophen 650 mg Q6HP PRN PO 09/04/24 16:15 09/05/24 21:41 650 MG Nitroglycerin 0.4 mg Q5MINP PRN SL 09/04/24 16:15 Ondansetron HCl 4 mg Q4HP PRN IV 09/04/24 16:15 09/04/24 22:41 4 MG Nitroglycerin 0.4 mg Q5MINP PRN SL 09/04/24 16:15 UNV Morphine Sulfate 2 mg Q30M PRN IV 09/04/24 16:15 UNV Sodium Chloride 1,000 ml @ 75 mls/hr [id number] IV 09/04/24 16:30 09/06/24 14:11 75 MLS/HR Levofloxacin 50 ml @ 50 mls/hr DAILY@1000,1100 IV 09/05/24 10:00 09/06/24 10:27 50 MLS/HR Docusate Sodium 100 mg BID PO 09/05/24 22:00 09/06/24 10:28 100 MG Sennosides 17.2 mg QHSP PRN PO 09/05/24 16:45 09/05/24 21:40 17.2 MG Lactulose 30 ml Q6HPRN PRN PO 09/05/24 16:45 09/06/24 10:27 30 ML Heparin Sodium (Porcine) 5,000 units Q12HR SC 09/05/24 22:00 09/06/24 10:33 5,000 UNITS Azithromycin 250 ml @ 125 mls/hr DAILY@1700 IV 09/05/24 17:00 09/06/24 14:11 125 MLS/HR Acetaminophen/ Hydrocodone Bitart 1 tab Q4HPRN PRN PO 09/06/24 10:00 09/06/24 20:31 1 TAB objective Gen.: Patient lying in bed in no apparent distress. On supplemental oxygen. Head: Normocephalic, atraumatic. Eyes: EOMI/PERRLA. Ears: Normal hearing. Normal anatomy. Neck/trachea: Trachea midline, supple. Nose: Normal external anatomy. Mouth: Moist mucous membranes. Chest: Decreased air entry bilaterally. No wheezing or rhonchi. Cardiovascular: Positive S1, positive S2. Regular rate and rhythm. Abdomen: Positive bowel sounds in all 4 quadrants. Soft, non-tender, non- distended. : Deferred. Rectal: Deferred. Skin: Warm, dry. Intact. Extremities: 2+ radial pulses bilaterally. No lower extremity edema. Neuro: Awake, alert, oriented x3. No gross motor or sensory deficits. Cranial nerves II through XII intact. Gait not assessed. laboratory and microbiology Laboratory Tests 09/05/24 05:18 Test 09/05/24 05:18 Range/Units Serum Glucose 148 H 74-106 mg/dL Assessment/Plan Impression: Acute hypoxic respiratory failure Pulmonary hypertension Pleural effusions Atelectasis Uterine cancer/cervical cancer, s/p chemotherapy Ascites Multiple sclerotic foci throughout axial skeleton, suspect metastases Morbid obesity BMI 41.5 Events: Supplemental oxygen 2 LPM NC Taper O2 as tolerated Continue bronchodilators. Continue antibiotics IV steroids Incentive spirometry Diurese to euvolemia Monitor renal function Recommend to obtain Echo as inpatient or outpatient. Updated family at bedside. Labs and imaging reviewed. Plan: Supplemental oxygen Titrate to keep O2 sats above 92%. CT of chest/abdomen/pelvis demonstrated small bilateral pleural effusions and bibasilar atelectasis; multiple small sclerotic foci throughout the axial skeleton, similar to prior and can be seen with metastatic disease Continue bronchodilators. Continue antibiotics IV steroids Incentive spirometry Lactulose Monitor renal function. Monitor electrolytes. Supplement as necessary. Monitor ins and outs. Pain control Avoid oversedation Oncology recs appreciated. Diet and lifestyle modifications for weight reduction Morbid obesity - complicates all care GI prophylaxis - Pepcid DVT prophylaxis - Heparin. Prognosis: Poor given patient's multiple co-morbidities. Rest of plan per hospitalist and other consultants. A total of 51 minutes of clinical care time was spent reviewing the patient record, examining the patient, making a diagnostic and therapeutic plan, discussing this plan with the medical personnel, following up on diagnostic studies and following the patient for clinical stability excluding any and all procedures. At least 50% of this time was spent in direct, [id number] contact. Thank you, Dr. Waterman, for allowing me to participate in this patient's care. Further recommendations will depend on the patient's clinical course. Please do not hesitate to contact me if you have any questions or concerns. This medical document was created using an electronic medical record system with [employer] system. Although these documentations are being carefully reviewed, there may still be some phonetic and typographical changes. The errors are purely typographical, due to imperfection on the software program, and do not reflect any compromise in the patient's medical care. Plan discussed with: Patient, Other (ROSINA Soares/NOK) JAMES HEARD MD Sep 06, 2024 21:14
[2024-09-07] VITALS (16 sets, daily range): BP systolic 130–160; BP diastolic 90–101; PULSE 83–102; RESP 15–24; TEMP 96.9–98.3; O2SAT 93–100
[2024-09-07] MEDS: MILK OF MAGNESIA 30ML SUSP PO ONE (12:03)
--- NOTE | 2024-09-07 14:34 | DVH ---
NUCLEAR MEDICINE VENTILATION/PERFUSION LUNG SCAN. INDICATION: PULMONARY EMBOLISM COMPARISON: None TECHNIQUE: Following intravenous demonstration of 6.5 millicuries of technetium 99m MAA, and inhala tion of 5.2 mCi of Xe 133 scintigrams were obtained in multiple projections of the lungs. FINDINGS: There is normal uptake of radionuclide on both the ventilation and perfusion portions of the examinat ion. No mismatched perfusion defects are demonstrated. Uptake is normally homogeneous. IMPRESSION: Low probability for PE.
[2024-09-07] MEDS: POLYETHYLENE GLYCOL 17 GM PWDR PO ONE (16:09)
[2024-09-07] MEDS: LACTULOSE 20Gm/30ML SOLN PO ONE (16:09)
[2024-09-07] MEDS: MORPHINE SULFATE INJ 2 MG/ml SYRG IV PRN (18:40)
--- NOTE | 2024-09-07 23:36 | DVHPN2 ---
Progress Note - Dictate Date Seen: Sep 07, 2024 Medical Necessity Reason Pt with a Central, PICC or Fol: No Subjective Patient seen and examined at bedside. Remains on supplemental oxygen Overnight events reviewed. vital signs Vital Sign Date Time Temp Pulse Resp B/P (MAP) Pulse Ox O2 Delivery O2 Flow Rate FiO2 09/07/24 20:00 90 15 Nasal Cannula* 2 28 09/07/24 19:57 100 09/07/24 18:40 168/96 09/07/24 17:00 97.9 97.9 Total Intake and Output 09/06/24 09/06/24 09/07/24 15:00 23:00 07:00 Intake Total 50 ml 1100 ml 980 ml Output Total 400 ml Balance 50 ml 1100 ml 580 ml medications Current Medications Medications Dose Ordered Sig/Vickey Route Start Time Stop Time Status Last Admin Dose Admin Albuterol 2.5 mg Q6HWA [place] 09/04/24 18:00 09/07/24 19:50 2.5 MG Albuterol 2.5 mg Q4HPRN PRN NEB 09/04/24 13:30 09/06/24 01:36 2.5 MG Ipratropium [place] 0.5 mg Q6HWA NEB 09/04/24 18:00 09/07/24 19:50 0.5 MG Ipratropium [place] 0.5 mg Q4HPRN PRN NEB 09/04/24 13:30 09/06/24 01:36 0.5 MG Methylprednisolone Sodium Succinate 40 mg BID IV 09/04/24 22:00 09/07/24 12:00 40 MG Famotidine 20 mg DAILY IV 09/05/24 10:00 09/07/24 12:01 20 MG Hydralazine HCl 10 mg Q6HP PRN IV 09/04/24 13:30 09/06/24 20:23 10 MG Aspirin 81 mg DAILY PO 09/05/24 10:00 09/07/24 12:01 81 MG Atorvastatin Calcium 40 mg HS PO 09/04/24 22:00 09/06/24 22:05 40 MG Morphine Sulfate 2 mg Q30MP PRN IV 09/04/24 16:15 Acetaminophen 650 mg Q6HP PRN PO 09/04/24 16:15 09/05/24 21:41 650 MG Nitroglycerin 0.4 mg Q5MINP PRN 09/04/24 16:15 Ondansetron HCl 4 mg Q4HP PRN IV 09/04/24 16:15 09/04/24 22:41 4 MG Nitroglycerin 0.4 mg Q5MINP PRN SL 09/04/24 16:15 UNV Morphine Sulfate 2 mg Q30M PRN IV 09/04/24 16:15 UNV Sodium Chloride 1,000 ml @ 75 mls/hr [id number] IV 09/04/24 16:30 09/07/24 12:03 75 MLS/HR Levofloxacin 50 ml @ 50 mls/hr DAILY@1000,1100 IV 09/05/24 10:00 09/07/24 13:35 50 MLS/HR Docusate Sodium 100 mg BID PO 09/05/24 22:00 09/07/24 12:01 100 MG Sennosides 17.2 mg QHSP PRN PO 09/05/24 16:45 09/06/24 22:06 17.2 MG Lactulose 30 ml Q6HPRN PRN PO 09/05/24 16:45 09/06/24 10:27 30 ML Heparin Sodium (Porcine) 5,000 units Q12HR SC 09/05/24 22:00 09/07/24 11:30 5,000 UNITS Azithromycin 250 ml @ 125 mls/hr DAILY@1700 IV 09/05/24 17:00 09/07/24 18:03 125 MLS/HR Acetaminophen/ Hydrocodone Bitart 1 tab Q4HPRN PRN PO 09/06/24 10:00 09/07/24 12:02 1 TAB Morphine Sulfate 2 mg Q4HPRN PRN IV 09/07/24 13:00 09/07/24 18:40 2 MG objective Gen.: Patient lying in bed in no apparent distress. On supplemental oxygen. Head: Normocephalic, atraumatic. Eyes: EOMI/PERRLA. Ears: Normal hearing. Normal anatomy. Neck/trachea: Trachea midline, supple. Nose: Normal external anatomy. Mouth: Moist mucous membranes. Chest: Decreased air entry bilaterally. No wheezing or rhonchi. Cardiovascular: Positive S1, positive S2. Regular rate and rhythm. Abdomen: Positive bowel sounds in all 4 quadrants. Soft, non-tender, non- distended. : Deferred. Rectal: Deferred. Skin: Warm, dry. Intact. Extremities: 2+ radial pulses bilaterally. No lower extremity edema. Neuro: Awake, alert, oriented x3. No gross motor or sensory deficits. Cranial nerves II through XII intact. Gait not assessed. laboratory and microbiology Laboratory Tests 09/05/24 05:18 Test 09/05/24 05:18 Range/Units Serum Glucose 148 H 74-106 mg/dL Assessment/Plan Impression: Acute hypoxic respiratory failure Pulmonary hypertension Pleural effusions Atelectasis Uterine cancer/cervical cancer, s/p chemotherapy Ascites Multiple sclerotic foci throughout axial skeleton, suspect metastases Morbid obesity BMI 41.5 Events: Supplemental oxygen 2 LPM NC Taper O2 as tolerated Continue bronchodilators. Continue antibiotics IV steroids Incentive spirometry Diurese to euvolemia Monitor renal function Updated family at bedside. Labs and imaging reviewed. Plan: Supplemental oxygen Titrate to keep O2 sats above 92%. CT of chest/abdomen/pelvis demonstrated small bilateral pleural effusions and bibasilar atelectasis; multiple small sclerotic foci throughout the axial skeleton, similar to prior and can be seen with metastatic disease Continue bronchodilators. Continue antibiotics IV steroids Incentive spirometry Lactulose Monitor renal function. Monitor electrolytes. Supplement as necessary. Monitor ins and outs. Pain control Avoid oversedation Oncology recs appreciated. Diet and lifestyle modifications for weight reduction Morbid obesity - complicates all care GI prophylaxis - Pepcid DVT prophylaxis - Heparin. Prognosis: Poor given patient's multiple co-morbidities. Rest of plan per hospitalist and other consultants. A total of 51 minutes of clinical care time was spent reviewing the patient record, examining the patient, making a diagnostic and therapeutic plan, discussing this plan with the medical personnel, following up on diagnostic studies and following the patient for clinical stability excluding any and all procedures. At least 50% of this time was spent in direct, [id number] contact. Thank you, Dr. Waterman, for allowing me to participate in this patient's care. Further recommendations will depend on the patient's clinical course. Please do not hesitate to contact me if you have any questions or concerns. This medical document was created using an electronic medical record system with [employer] dictation system. Although these documentations are being carefully reviewed, there may still be some phonetic and typographical changes. The errors are purely typographical, due to imperfection on the software program, and do not reflect any compromise in the patient's medical care. Plan discussed with: Patient, Daughter, Other (RN, MD) JAMES HEARD MD Sep 07, 2024 23:36
[2024-09-08] VITALS (17 sets, daily range): BP systolic 106–146; BP diastolic 67–102; PULSE 90–106; RESP 16–22; TEMP 97.1–98.5; O2SAT 94–100
[2024-09-08] MEDS: NITROGLYCERIN 0.4 MG SL TAB SL PRN (02:31)
--- NOTE | 2024-09-08 10:33 | DVHDS2 ---
Discharge Summary Date of Admission Sep 04, 2024 at 16:09 Date of Discharge: Sep 07, 2024 Labs/Diagnostic Data: Laboratory Results Test 09/08/24 09:58 09/05/24 05:18 09/04/24 16:35 09/04/24 10:25 Blood Gas Specimen Type Arterial Blood Gas Sample Site Right radial Blood Gas Patient Temperature 37.0 Arterial Blood Date Drawn [id number] Arterial Blood pH 7.419 (7.350-7.450) Arterial Blood Partial Pressure CO2 42.2 mmHg (32.0-45.0) Arterial Blood Partial Pressure O2 57.2 mmHg (83.0-108.0) Arterial Blood HCO3 26.7 mmol/L (21.0-28.0) Arterial Blood Oxygen Saturation 87.9 % (94.0-98.0) Arterial Blood Base Excess 2.0 mmol/L (-2.0-3.0) Arterial Blood Oxyhemoglobin 87.5 % (94.0-98.0) Arterial Blood Carboxyhemoglobin 0.3 % (0.5-1.5) Arterial Blood Methemoglobin 0.2 % (0.0-1.5) Manav Test Yes Blood Gas Total Hemoglobin 10.70 g/dL (12.0-16.0) Blood Gas Modality Room air FiO2 % 21.0 White Blood Count 3.9 10^3/uL (4.4-10.8) Red Blood Count 3.38 10^6/uL (4.0-5.20) Hemoglobin 10.0 g/dL (12.2-16.2) Hematocrit 31.2 % (36.0-46.0) Mean Corpuscular Volume 92.5 fL (80.0-100.0) Mean Corpuscular Hemoglobin 29.8 pg (28.0-32.0) Mean Corpuscular Hemoglobin Concent 32.2 g/dL (32.0-36.0) Red Cell Distribution Width 18.1 % (11.8-14.3) Platelet Count 221 10^3/uL (140-450) Mean Platelet Volume 8.5 fL (6.9-10.8) Neutrophils (%) (Auto) 86.8 % (37.0-80.0) Lymphocytes (%) (Auto) 9.6 % (10.0-50.0) Monocytes (%) (Auto) 3.2 % (0.0-12.0) Eosinophils (%) (Auto) 0.2 % (0.0-7.0) Basophils (%) (Auto) 0.2 % (0.0-2.0) Neutrophils # (Auto) 3.4 10 ^3/uL (1.6-8.6) Lymphocytes # (Auto) 0.4 10 ^3/uL (0.4-5.4) Monocytes # (Auto) 0.1 10 ^3/uL (0-1.3) Eosinophils # (Auto) 0 10 ^3/uL (0-0.8) Basophils # (Auto) 0 10 ^3/uL (0-0.2) Nucleated Red Blood Cells 0.2 % Sodium Level 140 mmol/L (136-145) Potassium Level 4.0 mmol/L (3.5-5.1) Chloride Level 103 mmol/L (98-107) Carbon Dioxide Level 27 mmol/L (20-31) Anion Gap 10 (5-15) Blood Urea Nitrogen 17 mg/dL (9-23) Creatinine 1.66 mg/dL (0.550-1.02) Glomerular Filtration Rate Calc 33 mL/min (>90) BUN/Creatinine Ratio 10.2 (10.0-20.0) Serum Glucose 148 mg/dL (74-106) Calcium Level 9.2 mg/dL (8.7-10.4) Total Bilirubin 0.4 mg/dL (0.2-1.0) Aspartate Amino Transferase (AST) 22 U/L (13-40) Alanine Aminotransferase (ALT) 12 U/L (7-40) Alkaline Phosphatase 76 U/L (46-116) Total Protein 6.6 g/dL (5.7-8.2) Albumin 3.5 g/dL (3.2-4.8) Random Vancomycin Level 15.1 ug/mL (5-10) Troponin I High Sensitivity 5 ng/L (</=34) Prothrombin Time 11.6 sec (9.3-11.8) Prothrombin Time INR 1.10 (0.9-1.15) Activated Partial Thromboplast Time 20.9 SEC (24.5-34.5) D-Dimer, Quantitative 10.60 mg/L FEU (0.0-0.49) Magnesium Level 2.1 mg/dL (1.6-2.6) B-Type Natriuretic Peptide 12.29 pg/mL (0-100) Test 09/04/24 09:33 09/04/24 09:30 Urine Color Yellow (Yellow) Urine Clarity Clear (Clear) Urine pH 5.5 (5.0-9.0) Urine Specific [place] 1.016 (1.001-1.035) Urine Protein Trace (Negative) Urine Ketones Negative (Negative) Urine Blood Negative /uL (Negative) Urine Nitrite Negative (Negative) Urine Bilirubin Negative (Negative) Urine Urobilinogen Normal mg/dL (Negative) Urine Leukocyte Esterase 1+ /uL (Negative) Urine RBC 2 /hpf (0 - 4) Urine WBC 5 /hpf (0 - 5) Urine Squamous Epithelial Cells Few /hpf (<5) Urine Bacteria Few /hpf (None Seen) Urine Hyaline Casts Mod /lpf (0 - 2) Urine Mucus Few (None Seen) Urine Glucose Normal mg/dL (Normal) Influenza Type A Antigen Negative (Negative) Influenza Type B Antigen Negative (Negative) SARS-CoV-2 Antigen (Rapid) Negative (NEGATIVE) Other Laboratory Tests 09/05/24 05:18 Brief Hx & Hospital Course: 69-year-old female with known history of hypertension, history of uterine and cervical cancer status post chemotherapy initially presented to the hospital chest pain shortness breath found to have acute hypoxic respiratory failure secondary to pulmonary hypertension, PE has been ruled out. Patient's CT angio shows inconclusive for PE. V/Q scan was negative as well as Doppler ultrasound of lower extremity was negative for any DVT. Patient's has pulmonary hypertension as well. Patient is 1. Acute hypoxic respiratory failure suspect secondary to pulmonary hypertension, PE is inconclusive as per CT angio V/Q scan is negative, Doppler ultrasound shows no evidence of DVT 2. Pulmonary hypertension 3. Uterine cancer/cervical cancer status post chemotherapy 4. Abdominal distention/bloating bed CT evidence of nucleus ascites/omentum nodules and omental caking suspect metastasis 5. Multiple sclerotic foci throughout the axial skeleton suspected metastases Final Diagnosis/Problems List 69-year-old female with known history of hypertension, history of uterine and cervical cancer status post chemotherapy initially was in the hospital chest pain shortness breath found to have 1. Acute hypoxic respiratory failure suspect secondary to pulmonary hypertension, PE is inconclusive as per CT angio V/Q scan is negative, Doppler ultrasound shows no evidence of DVT 2. Pulmonary hypertension 3. Uterine cancer/cervical cancer status post chemotherapy 4. Abdominal distention/bloating bed CT evidence of nucleus ascites/omentum nodules and omental caking suspect metastasis 5. Multiple sclerotic foci throughout the axial skeleton suspected metastases Discharge Disposition: Home with Health Services Discharge Instruct/Medications Diet: Cardiac 2g Na,low cholest Activity: No Restrictions, As Tolerated Follow Up/Referral: Follow up with the PCP in one week Follow up with Dr. Vences in 1 week, may need whole-body scan Medications: As prescribed Discharge Statement: "Patient was advised to return to the ER or call 911 if any headaches, dizziness, shortness of breath, chest pain, abdominal pain, bleeding, fevers, or worsening of medical condition. Patient was counseled about treatment plan, medications, possible side effects, patientverbalized understanding. All questions were answered to the best of my ability. This discharge took greater then 30 minutes in planning, reviewing documentation, counseling the patient, and discussing with other team members." ASSESSMENT ASSESSMENT Assessment 69-year-old female with known history of hypertension, history of uterine and cervical cancer status post chemotherapy initially was in the hospital chest pain shortness breath found to have 1. Acute hypoxic respiratory failure suspect secondary to pulmonary hypertension, PE is inconclusive as per CT angio V/Q scan is negative, Doppler ultrasound shows no evidence of DVT 2. Pulmonary hypertension 3. Uterine cancer/cervical cancer status post chemotherapy 4. Abdominal distention/bloating bed CT evidence of nucleus ascites/omentum nodules and omental caking suspect metastasis 5. Multiple sclerotic foci throughout the axial skeleton suspected metastases NEO KHAN MD Sep 08, 2024 10:33
[2024-09-08] MEDS: cefTRIAXone 1GM/50ML D5W 50 ML IV ONE (14:15)
--- NOTE | 2024-09-08 14:22 | DVHPN2 ---
Subjective 09/08 update-- not feeling good. very dyspnic with exertion, hypoxia worsens with ambulation. needs PT and more optimization. patient has decreased PO tolerance. volume overload, unknown cause as she is not ESRD or cirrhotic or CHF, not diagnosed yet. she has bilateral pleural effusion and pitting edema. mobility is very limited and has unremitting nausea. will try diuresis, CLD, continue prn zofran. switch ABx to ctx/azithro. will try bedside US for pleural effusion eval. lasix 40 x1, then 20 bid. bring PT eval onboard. expecting 1-2 days more inpatient. oxygen available bedside. Reviewed: Care Plan Changes from previous H/P or p: No Changes General: Per HPI Objective Vitals Vital Signs Date Time Temp Pulse Resp B/P (MAP) Pulse Ox O2 Delivery O2 Flow Rate FiO2 09/08/24 13:00 97.9 100 18 146/102 (117) 95 97.9 09/08/24 12:20 Nasal Cannula 3.0 09/08/24 12:20 32 Intake/Output Intake and Output 09/08/24 07:00 Intake Total 1300 ml Output Total 600 ml Balance 700 ml Intake Oral 1200 ml IV Total 100 ml Output Urine Total 600 ml # Voids 3 Exam gen: appears SOB. using some accessory muscles. cv: s1s2, NMRG lungs: rales upto midlungs, absent bases sounds abdomen: bs present , NT ND. obese abdomen. extrem: pitting edema 1-2+ bilateral Neuro: No FND Medications Current Medications Medications Dose Ordered Sig/Vic[place] Route Start Time Stop Time Status Last Admin Dose Admin Albuterol 2.5 mg Q6HWA [facility] 09/04/24 18:00 09/08/24 12:20 2.5 MG Albuterol 2.5 mg Q4HPRN PRN [facility] 09/04/24 13:30 09/08/24 03:46 2.5 MG Ipratropium [place] 0.5 mg Q6HWA [facility] 09/04/24 18:00 09/08/24 12:20 0.5 MG Ipratropium [place] 0.5 mg Q4HPRN PRN [facility] 09/04/24 13:30 09/08/24 03:46 0.5 MG Methylprednisolone Sodium Succinate 40 mg BID IV 09/04/24 22:00 09/08/24 10:22 40 MG Famotidine 20 mg DAILY IV 09/05/24 10:00 09/08/24 10:22 20 MG Hydralazine HCl 10 mg Q6HP PRN IV 09/04/24 13:30 09/06/24 20:23 10 MG Aspirin 81 mg DAILY PO 09/05/24 10:00 09/08/24 10:22 81 MG Atorvastatin Calcium 40 mg HS PO 09/04/24 22:00 09/07/24 22:00 40 MG Morphine Sulfate 2 mg Q30MP PRN IV 09/04/24 16:15 Acetaminophen 650 mg Q6HP PRN PO 09/04/24 16:15 09/05/24 21:41 650 MG Nitroglycerin 0.4 mg Q5MINP PRN SL 09/04/24 16:15 09/08/24 02:41 0.4 MG Ondansetron HCl 4 mg Q4HP PRN IV 09/04/24 16:15 09/04/24 22:41 4 MG Nitroglycerin 0.4 mg Q5MINP PRN SL 09/04/24 16:15 UNV Morphine Sulfate 2 mg Q30M PRN IV 09/04/24 16:15 UNV Sodium Chloride 1,000 ml @ 75 mls/hr [id number] IV 09/04/24 16:30 09/07/24 12:03 75 MLS/HR Docusate Sodium 100 mg BID PO 09/05/24 22:00 09/08/24 10:22 100 MG Sennosides 17.2 mg QHSP PRN PO 09/05/24 16:45 09/06/24 22:06 17.2 MG Lactulose 30 ml Q6HPRN PRN PO 09/05/24 16:45 09/08/24 10:22 30 ML Heparin Sodium (Porcine) 5,000 units Q12HR SC 09/05/24 22:00 09/08/24 10:51 5,000 UNITS Azithromycin 250 ml @ 125 mls/hr DAILY@1700 IV 09/05/24 17:00 09/07/24 18:03 125 MLS/HR Acetaminophen/ Hydrocodone Bitart 1 tab Q4HPRN PRN PO 09/06/24 10:00 09/07/24 12:02 1 TAB Morphine Sulfate 2 mg Q4HPRN PRN IV 09/07/24 13:00 09/08/24 00:07 2 MG Ceftriaxone Sodium 50 ml @ 100 mls/hr DAILY@09 IV 09/09/24 09:00 UNV Laboratory Results Laboratory Tests 09/05/24 05:18 Urinalysis Test 09/04/24 09:33 Urine Color Yellow (Yellow) Urine Clarity Clear (Clear) Urine pH 5.5 (5.0-9.0) Urine Specific [place] 1.016 (1.001-1.035) Urine Protein Trace (Negative) H Urine Ketones Negative (Negative) Urine Blood Negative /uL (Negative) Urine Nitrite Negative (Negative) Urine Bilirubin Negative (Negative) Urine Urobilinogen Normal mg/dL (Negative) Urine Leukocyte Esterase 1+ /uL (Negative) Urine RBC 2 /hpf (0 - 4) Urine WBC 5 /hpf (0 - 5) Urine Squamous Epithelial Cells Few /hpf (<5) Urine Bacteria Few /hpf (None Seen) H Urine Hyaline Casts Mod /lpf (0 - 2) Urine Mucus Few (None Seen) Urine Glucose Normal mg/dL (Normal) Blood Gas Results Test 09/08/24 09:58 Arterial Blood pH 7.419 (7.350-7.450) FiO2 % 21.0 Labs and/or images reviewed: Labs reviewed by me, Image(s) reviewed by me Assessment/Plan Assessment/Plan 09/08 update-- not feeling good. very dyspnic with exertion, hypoxia worsens with ambulation. needs PT and more optimization. patient has decreased PO tolerance. volume overload, unknown cause as she is not ESRD or cirrhotic or CHF, not diagnosed yet. she has bilateral pleural effusion and pitting edema. mobility is very limited and has unremitting nausea. will try diuresis, CLD, continue prn zofran. switch ABx to ctx/azithro. will try bedside US for pleural effusion eval. lasix 40 x1, then 20 bid. bring PT eval onboard. expecting 1-2 days more inpatient. oxygen available bedside. - bedside ultrasound of lungs 09/08/24. Left lung, above diaphragm noting some 2-3 cm of pleural fluid only in 1 rib space. Upper rib spaces on the left have B lines. For right lung, B lines seen for the 1st 2-3 rib spaces above diaphragm.-no significant pleural effusion for thoracentesis.. CPT 70845 -bedside ultrasound of abdomen 09/08/24- perihepatic region with ascites but less than 5 cm (approximately 2 cm), gallbladder notable with few calcific bodies which is likely gallstones.. No significant ascites pocket (no pockets with 5 or more cm of ascites). Largest pocket is right lower quadrant approximately 4 cm surrounded by multiple bowel loops. CPT 74771 # acute hypoxic respiratory failure due to pulmonary hypertension - likely from pulmonary hypertension but could also be from abdominal distention from? Cancer related abdominal distension/? ascites?. Oxygen still not delivered 09/08. Patient severely dyspneic with PT. Volume overload on exam. We will try IV Lasix diuresis. Otherwise continue p.r.n. nebs. # volume overload, due to pulmonary hypertension - see above # bilateral pleural effusions-see above # PE ruled out- CTA PE study was inadequate, V/Q scan was low probability for PE. Bilateral DVT ultrasound of lower extremities is negative. # uterine cancer/cervical cancer status post chemo and surgical excision- oncology was consulted inpatient, recommend outpatient follow up. Possible outpatient whole-body scan. outpatient Oncology follow up # abdominal distension/bloating with CT evidence of ascites/omental nodules with suspected metastasis-outpatient Oncology # multiple sclerotic foci throughout the axial skeleton suspected of metastasis -outpatient Oncology #Physical deconditioning likely due to morbid obesity, and volume overload and abdominal distention due to cancer sequela - PT evaluation to continue # morbid obesity-- BMI > 40 Diet CLD GI prophylaxis Pepcid 20 p.o. b.i.d. DVT prophylaxis subQ heparin Med tele Full code Plan discussed with: Patient, Daughter My Orders Orders - ADRIANA BURNETTE MD Procedure Category Date Status Time Pt Request For Service PT 09/08/24 Logged 14:10 Ceftriaxone 1gm/50ml PHA 09/09/24 Logged D5w (Rocephin) 09:00 Ceftriaxone 1gm/50ml PHA 09/08/24 Logged D5w (Rocephin) 14:15 Date of Service: Sep 08, 2024 Billing Provider: ADRIANA BURNETTE MD Common Visit Codes: [id number] INP/OBS CARE(HIGH) ADRIANA BURNETTE MD Sep 08, 2024 14:22
[2024-09-08] MEDS: FUROSEMIDE 40 MG/4 ML VIAL IV ONE (15:17)
[2024-09-08] MEDS: FUROSEMIDE 20 MG/2 ML VIAL IV SCH (18:09)
[2024-09-08] MEDS: MELATONIN 5 MG TAB PO SCH (22:16)
--- NOTE | 2024-09-08 22:54 | DVHPN2 ---
Progress Note - Dictate Date Seen: Sep 08, 2024 Medical Necessity Reason Pt with a Central, PICC or Fol: No Subjective Patient seen and examined at bedside. Remains on supplemental oxygen Overnight events reviewed. vital signs Vital Sign Date Time Temp Pulse Resp B/P (MAP) Pulse Ox O2 Delivery O2 Flow Rate FiO2 09/08/24 20:00 100 20 Nasal Cannula* 3 32 09/08/24 18:44 96 09/08/24 18:09 144/67 09/08/24 17:00 97.1 97.1 Total Intake and Output 09/07/24 09/07/24 09/08/24 15:00 23:00 07:00 Intake Total 100 ml 1200 ml Output Total 600 ml Balance 100 ml 1200 ml -600 ml medications Current Medications Medications Dose Ordered Sig/Vickey Route Start Time Stop Time Status Last Admin Dose Admin Albuterol 2.5 mg Q6HWA NEB 09/04/24 18:00 09/08/24 18:44 2.5 MG Albuterol 2.5 mg Q4HPRN PRN NEB 09/04/24 13:30 09/08/24 03:46 2.5 MG Ipratropium [place] 0.5 mg Q6HWA NEB 09/04/24 18:00 09/08/24 18:44 0.5 MG Ipratropium [place] 0.5 mg Q4HPRN PRN NEB 09/04/24 13:30 09/08/24 03:46 0.5 MG Famotidine 20 mg DAILY IV 09/05/24 10:00 09/08/24 10:22 20 MG Hydralazine HCl 10 mg Q6HP PRN IV 09/04/24 13:30 09/06/24 20:23 10 MG Aspirin 81 mg DAILY PO 09/05/24 10:00 09/08/24 10:22 81 MG Atorvastatin Calcium 40 mg HS PO 09/04/24 22:00 09/08/24 22:16 40 MG Morphine Sulfate 2 mg Q30MP PRN IV 09/04/24 16:15 Acetaminophen 650 mg Q6HP PRN PO 09/04/24 16:15 09/05/24 21:41 650 MG Nitroglycerin 0.4 mg Q5MINP PRN SL 09/04/24 16:15 09/08/24 02:41 0.4 MG Ondansetron HCl 4 mg Q4HP PRN IV 09/04/24 16:15 09/04/24 22:41 4 MG Nitroglycerin 0.4 mg Q5MINP PRN SL 09/04/24 16:15 UNV Morphine Sulfate 2 mg Q30M PRN IV 09/04/24 16:15 UNV Docusate Sodium 100 mg BID PO 09/05/24 22:00 09/08/24 22:16 100 MG Sennosides 17.2 mg QHSP PRN PO 09/05/24 16:45 09/06/24 22:06 17.2 MG Lactulose 30 ml Q6HPRN PRN PO 09/05/24 16:45 09/08/24 10:22 30 ML Heparin Sodium (Porcine) 5,000 units Q12HR SC 09/05/24 22:00 09/08/24 22:21 5,000 UNITS Azithromycin 250 ml @ 125 mls/hr DAILY@1700 IV 09/05/24 17:00 09/08/24 17:55 125 MLS/HR Acetaminophen/ Hydrocodone Bitart 1 tab Q4HPRN PRN PO 09/06/24 10:00 09/08/24 20:25 1 TAB Morphine Sulfate 2 mg Q4HPRN PRN IV 09/07/24 13:00 09/08/24 00:07 2 MG Ceftriaxone Sodium 50 ml @ 100 mls/hr DAILY@09 IV 09/09/24 09:00 Furosemide 20 mg BIDD IV 09/08/24 18:00 09/08/24 18:09 20 MG Melatonin 5 mg HS PO 09/08/24 22:00 09/08/24 22:16 5 MG objective Gen.: Patient lying in bed in no apparent distress. On supplemental oxygen. Head: Normocephalic, atraumatic. Eyes: EOMI/PERRLA. Ears: Normal hearing. Normal anatomy. Neck/trachea: Trachea midline, supple. Nose: Normal external anatomy. Mouth: Moist mucous membranes. Chest: Decreased air entry bilaterally. No wheezing or rhonchi. Cardiovascular: Positive S1, positive S2. Regular rate and rhythm. Abdomen: Positive bowel sounds in all 4 quadrants. Soft, non-tender, non- distended. : Deferred. Rectal: Deferred. Skin: Warm, dry. Intact. Extremities: 2+ radial pulses bilaterally. No lower extremity edema. Neuro: Awake, alert, oriented x3. No gross motor or sensory deficits. Cranial nerves II through XII intact. Gait not assessed. laboratory and microbiology Laboratory Tests 09/05/24 05:18 Test 09/05/24 05:18 Range/Units Serum Glucose 148 H 74-106 mg/dL Assessment/Plan Impression: Acute hypoxic respiratory failure Pulmonary hypertension Pleural effusions Atelectasis Uterine cancer/cervical cancer, s/p chemotherapy Ascites Multiple sclerotic foci throughout axial skeleton, suspect metastases Morbid obesity BMI 41.5 Events: Supplemental oxygen 2 LPM NC Taper O2 as tolerated Obtain repeat ABG Continue bronchodilators. Continue antibiotics IV steroids - completed course. Incentive spirometry Diurese to euvolemia Monitor renal function Recommend to obtain Echo as inpatient or outpatient. Recommend outpatient sleep study, PFTs. Labs and imaging reviewed. Plan: Supplemental oxygen Titrate to keep O2 sats above 92%. CT of chest/abdomen/pelvis demonstrated small bilateral pleural effusions and bibasilar atelectasis; multiple small sclerotic foci throughout the axial skeleton, similar to prior and can be seen with metastatic disease Continue bronchodilators. Continue antibiotics IV steroids - completed course. Incentive spirometry Lactulose Monitor renal function. Monitor electrolytes. Supplement as necessary. Monitor ins and outs. Pain control Avoid oversedation Oncology recs appreciated. Diet and lifestyle modifications for weight reduction Morbid obesity - complicates all care GI prophylaxis - Pepcid DVT prophylaxis - Heparin. Prognosis: Poor given patient's multiple co-morbidities. Rest of plan per hospitalist and other consultants. A total of 51 minutes of clinical care time was spent reviewing the patient record, examining the patient, making a diagnostic and therapeutic plan, discussing this plan with the medical personnel, following up on diagnostic studies and following the patient for clinical stability excluding any and all procedures. At least 50% of this time was spent in direct, [id number] contact. Thank you, Dr. Waterman, for allowing me to participate in this patient's care. Further recommendations will depend on the patient's clinical course. Please do not hesitate to contact me if you have any questions or concerns. This medical document was created using an electronic medical record system with [employer] system. Although these documentations are being carefully reviewed, there may still be some phonetic and typographical changes. The errors are purely typographical, due to imperfection on the software program, and do not reflect any compromise in the patient's medical care. Dietary Evaluation Review Comments: encourage and monitor po intake to meet 75% of her needs, Expected Outcomes/Goals: support optimal nutrition status. Plan discussed with: Patient, Other (ROSINA Peck) JAMES HEARD MD Sep 08, 2024 22:54
[2024-09-09] VITALS (19 sets, daily range): BP systolic 115–148; BP diastolic 68–90; PULSE 80–111; RESP 18–24; TEMP 97.4–98.8; O2SAT 92–100
[2024-09-09 08:32] LABS: Basophils # (auto) 0 10 ^3/uL (0-0.2); Basophils % (auto) 0.1 % (0.0-2.0); Eosinophils # (auto) 0 10 ^3/uL (0-0.8); Eosinophils % (auto) 0.6 % (0.0-7.0); Hematocrit 32.9 % (36.0-46.0); Hemoglobin 10.6 g/dL (12.2-16.2); Lymphocytes # (auto) 0.6 10 ^3/uL (0.4-5.4); Lymphocytes % (auto) 10.8 % (10.0-50.0); Mean Corpuscular Hemoglobin 29.4 pg (28.0-32.0); Mean Corpuscular Hgb Conc. 32.2 g/dL (32.0-36.0); Mean Corpuscular Volume 91.4 fL (80.0-100.0); Monocytes # (auto) 0.8 10 ^3/uL (0-1.3); Monocytes % (auto) 14.1 % (0.0-12.0); Neutrophils # (auto) 4.3 10 ^3/uL (1.6-8.6); Neutrophils % (auto) 74.4 % (37.0-80.0); Nucleated Red Blood Cells % 0.2 %; Platelet Count (auto) 262 10^3/uL (140-450); Red Cell Distribution Width 18.5 % (11.8-14.3); White Blood Cell 5.8 10^3/uL (4.4-10.8)
[2024-09-09 08:33] LABS: Alanine Aminotransferase 25 U/L (7-40); Albumin 3.9 g/dL (3.2-4.8); Alkaline Phosphatase 85 U/L (46-116); Anion Gap 10 (5-15); Aspartate Aminotransferase 32 U/L (13-40); BUN/Creatinine Ratio 12.4 (10.0-20.0); Calcium 10.2 mg/dL (8.7-10.4); Carbon Dioxide 26 mmol/L (20-31); Chloride 105 mmol/L (98-107); Sodium 141 mmol/L (136-145)
[2024-09-09 08:34] LABS: Bilirubin, Total 0.4 mg/dL (0.2-1.0); Total Protein 7.3 g/dL (5.7-8.2)
[2024-09-09 08:35] LABS: Blood Urea Nitrogen 33 mg/dL (9-23); Glucose 117 mg/dL (74-106)
[2024-09-09] MEDS: FUROSEMIDE 20 MG/2 ML VIAL IV SCH (09:00)
--- NOTE | 2024-09-09 09:14 | DVH ---
Exam: CT CT AB PEL WO CON-NO ORAL OR IV History: abdominal distention/ pain Comparison Study: CT CHST AB PEL WO CON-NO IV/ORAL on DOS: 09/04/24 Technique: Multidetector spiral CT of the abdomen was performed from lung bases to pubic symphysis. Imaging was performed without IV contrast. Axial, coronal and sagittal multiplanar reformats were ob tained from the axial data set by the technologist. Radiation Dose : 1. Abdomen/Pelvis: CTDIvol 25.3 mGy, DLP 1389.88 mGy*cm. Findings: Evaluation of solid organs is limited due to lack of intravenous contrast use. Lung Bases: Partially visualized [id number]-left pleural effusions. Associated bibasilar atel ectasis. Liver: The liver is normal in size. No focal lesions. Gallbladder and Biliary Tree: There is cholelithiasis and possible biliary sludge. Spleen: Unremarkable Pancreas: The pancreas is grossly normal in appearance. Adrenal Glands: Unremarkable Kidneys: Fluid attenuating 2.5 cm left superior renal pole cyst. Fluid attenuating 1.0 cm right super ior renal pole cyst. No hydronephrosis or renal calculi. Bladder: Grossly unremarkable for degree of distention. Bowel: Postsurgical metallic density associated with the gastroesophageal junction. The stomach is gr ossly normal in appearance. Small bowel and colon are normal in caliber and distribution. The appendi x is partially visualized, and it appears normal in caliber and surrounded by ascites. Ascites: Small amount of ascites which is similar compared to 09/04/2024. Lymphadenopathy: Prominent pericardial lymph nodes are again seen. Abdominal Wall and Mesentery: Redemonstration of omental nodules and caking. Mild generalized anasarc a. Vasculature: The visualized abdominal aorta is normal in size and caliber. Evaluation of abdominal a nd pelvic vessels is limited due to lack of intravenous contrast. Pelvic Organs: Uterus is surgically absent. Musculoskeletal: Multiple small sclerotic foci throughout the visualized spine and bony pelvis, simil ar from prior. No evidence of acute osseous abnormalities. IMPRESSION: Evaluation is limited due to lack of intravenous or oral contrast. 1. Redemonstration of omental nodules and omental caking. 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 2. Small amount of ascites, [id number]-left pleural effusions, and mild generalized anasarca. Findings are suggestive of volume overload. 3. Scattered osseous sclerotic foci are concerning for metastatic disease. 4. Prominent pericardial lymph nodes are unchanged. 5. No bowel obstruction. 6. Cholelithiasis. Radiation optimization: All CT scans at this facility use at least one of these dose optimization ward hniques: automated exposure control mA and/or kV adjustment per patient size (includes targeted exam s where dose is matched to clinical indication) or iterative reconstruction.
[2024-09-09] MEDS: cefTRIAXone 1GM/50ML D5W 50 ML IV SCH (10:15)
[2024-09-09] MEDS: LACTATED RINGER'S 500 ML IV ONE (11:50)
[2024-09-09 14:27] LABS: Chloride 106 mmol/L (98-107); Potassium 4.3 mmol/L (3.5-5.1); Sodium 140 mmol/L (136-145)
[2024-09-09 14:28] LABS: Anion Gap 8 (5-15); Calcium 9.9 mg/dL (8.7-10.4); Carbon Dioxide 26 mmol/L (20-31)
[2024-09-09 14:33] LABS: BUN/Creatinine Ratio 11.5 (10.0-20.0)
[2024-09-09 14:38] LABS: Blood Urea Nitrogen 29 mg/dL (9-23); Glucose 111 mg/dL (74-106)
--- NOTE | 2024-09-09 14:52 | DVHSR ---
APPROVED REPORT EXAM: Two-dimensional and M-mode echocardiogram with Doppler and color Doppler. Blood Pressure: 185/72 mmHg INDICATION R/O CHF RISK FACTORS Obesity: Height: 5'6", Weight: 252 DIMENSIONS LVDd4.0 (3.8-5.7cm)LA (2D)3.5 (1.9-4.0cm)Aortic Root3.5 (2.0-3.7cm) LVDs2.3 (2.5-4.0cm)LA (MM) (1.9-4.0cm)Aortic Cusp Exc1.9 (1.5-2.0cm) EF (%) 75.0 (55-70%)Rt. Atrium3.6 (1.9-4.0cm)Asc. Aorta cm IVSd1.4 (0.7-1.1cm)RV (D) (1.8-2.4cm) PWd1.4 (0.7-1.1cm) Mitral Valve MitralMitral Stenosis E wave0.83m/sMV Mean GR.mmHg A wave0.97m/sMV Peak GR.mmHg E/A ratio0.92D MVAcm2 DECEL [id number] 1/2 [place] Aortic Valve Aortic ValveAortic Stenosis V11.40m/Yeison Mean GR.6mmHg V21.74m/Yeison Peak GR.12mmHg LVOT Diameter2.0 (1.8-2.4cm)Doppler AVA2.53cm2 Pulmonic Valve V21.48m/s Other Information Technically limited study due to body habitus. Conclusion LV EJECTION FRACTION IS 70% MODERATELY CALCIFIED AORTIC LEAFLETS NO AORTIC STENOSIS NORMAL MV,TV AND PV NORMAL RV FUNCTION NO EFFUSION
--- NOTE | 2024-09-09 15:18 | ECG ---
[facility] Test Date: 2024-09-08 Test Time: 01:59:42 Pat Name: ELAN CASTILLO Department: Respiratoy Room: 0221T B Gender: F Miller Head: [id number] : 1955 Requested By: JAMES HEARD Order Number: [id number] Reading MD: Jean Enrique Measurements Intervals [place] Rate: 104 P: 44 NC: 176 QRS: 32 QRSD: 87 T: -1 QT: 323 QTc: 425 Interpretive Statements Sinus tachycardia T abnormalities, lateral and inferior leads Electronically Signed On 09-09-2024 21:05:37 PST by Jean Enrique Please click the below link to view image of tracing.
--- NOTE | 2024-09-09 16:03 | DVHPN2 ---
Subjective update 09/09 - still severly dyspnic, was unaware of possible advanced cancer as indicated by CT abd. new repeat CT without any acute etiologies for poor po tolerance and "bloating". denied to work with PT today, will need re-eval. lives alone. prognosis gaurded. family upset about sharing CT information with patient. patient likely does not want to know the progression of disease. will defer to primary oncologist. needs social for discharge planning as patient lives alone and now cannot support her ADLs due to dyspnea//hypoxia. IR needed to eval if ascites can be drained. diuresis is causing ADRIA, which is resolving with slow fluids, will hold off any further attempts to diuresis. 09/08 update-- not feeling good. very dyspnic with exertion, hypoxia worsens with ambulation. needs PT and more optimization. patient has decreased PO tolerance. volume overload, unknown cause as she is not ESRD or cirrhotic or CHF, not diagnosed yet. she has bilateral pleural effusion and pitting edema. mobility is very limited and has unremitting nausea. will try diuresis, CLD, continue prn zofran. switch ABx to ctx/azithro. will try bedside US for pleural effusion eval. lasix 40 x1, then 20 bid. bring PT eval onboard. expecting 1-2 days more inpatient. oxygen available bedside. Reviewed: Care Plan Changes from previous H/P or p: No Changes General: Per HPI Objective Vitals Vital Signs Date Time Temp Pulse Resp B/P (MAP) Pulse Ox O2 Delivery O2 Flow Rate FiO2 09/09/24 13:00 98.0 96 19 126/70 (88) 95 98.0 09/09/24 09:48 Nasal Cannula 3.0 09/09/24 09:48 32 Intake/Output Intake and Output 09/09/24 07:00 Intake Total 1560 ml Output Total 200 ml Balance 1360 ml Intake Oral 1560 ml Output Urine Total 200 ml # Voids 2 Exam gen: appears SOB. using some accessory muscles. cv: s1s2, NMRG lungs: rales upto midlungs, absent bases sounds abdomen: bs present , NT ND. obese abdomen. extrem: pitting edema 1-2+ bilateral Neuro: No FND Medications Current Medications Medications Dose Ordered Sig/Vickey Route Start Time Stop Time Status Last Admin Dose Admin Albuterol 2.5 mg Q6HWA NEB 12/27/24 18:00 09/09/24 12:22 2.5 MG Albuterol 2.5 mg Q4HPRN PRN NEB 09/04/24 13:30 09/08/24 03:46 2.5 MG Ipratropium [place] 0.5 mg Q6HWA [facility] 09/04/24 18:00 09/09/24 12:22 0.5 MG Ipratropium [place] 0.5 mg Q4HPRN PRN [facility] 09/04/24 13:30 09/08/24 03:46 0.5 MG Hydralazine HCl 10 mg Q6HP PRN IV 09/04/24 13:30 09/09/24 05:27 10 MG Aspirin 81 mg DAILY PO 09/05/24 10:00 09/09/24 10:29 81 MG Atorvastatin Calcium 40 mg HS PO 09/04/24 22:00 09/08/24 22:16 40 MG Morphine Sulfate 2 mg Q30MP PRN IV 09/04/24 16:15 Acetaminophen 650 mg Q6HP PRN PO 09/04/24 16:15 09/05/24 21:41 650 MG Nitroglycerin 0.4 mg Q5MINP PRN 09/04/24 16:15 09/08/24 02:41 0.4 MG Ondansetron HCl 4 mg Q4HP PRN IV 09/04/24 16:15 09/04/24 22:41 4 MG Nitroglycerin 0.4 mg Q5MINP PRN 09/04/24 16:15 UNV Morphine Sulfate 2 mg Q30M PRN IV 09/04/24 16:15 UNV Docusate Sodium 100 mg BID PO 09/05/24 22:00 09/09/24 10:29 100 MG Sennosides 17.2 mg QHSP PRN PO 09/05/24 16:45 09/06/24 22:06 17.2 MG Lactulose 30 ml Q6HPRN PRN PO 09/05/24 16:45 09/08/24 10:22 30 ML Heparin Sodium (Porcine) 5,000 units Q12HR SC 09/05/24 22:00 09/09/24 10:29 5,000 UNITS Azithromycin 250 ml @ 125 mls/hr DAILY@1700 IV 09/05/24 17:00 09/08/24 17:55 125 MLS/HR Acetaminophen/ Hydrocodone Bitart 1 tab Q4HPRN PRN PO 09/06/24 10:00 09/09/24 14:57 1 TAB Morphine Sulfate 2 mg Q4HPRN PRN IV 09/07/24 13:00 09/08/24 00:07 2 MG Ceftriaxone Sodium 50 ml @ 100 mls/hr DAILY@09 IV 09/09/24 09:00 09/09/24 10:15 100 MLS/HR Melatonin 5 mg HS PO 09/08/24 22:00 09/08/24 22:16 5 MG Furosemide 40 mg BIDD IV 09/09/24 09:00 Laboratory Results Laboratory Tests 09/09/24 07:55 09/09/24 13:45 Chemistry Test 09/09/24 07:52 09/09/24 13:45 Albumin 3.9 g/dL (3.2-4.8) Calcium Level 10.2 mg/dL (8.7-10.4) 9.9 mg/dL (8.7-10.4) Total Protein 7.3 g/dL (5.7-8.2) LFT Test 09/09/24 07:52 Alanine Aminotransferase (ALT) 25 U/L (7-40) Alkaline Phosphatase 85 U/L (46-116) Aspartate Amino Transferase (AST) 32 U/L (13-40) Total Bilirubin 0.4 mg/dL (0.2-1.0) Urinalysis Test 09/04/24 09:33 Urine Color Yellow (Yellow) Urine Clarity Clear (Clear) Urine pH 5.5 (5.0-9.0) Urine Specific [place] 1.016 (1.001-1.035) Urine Protein Trace (Negative) H Urine Ketones Negative (Negative) Urine Blood Negative /uL (Negative) Urine Nitrite Negative (Negative) Urine Bilirubin Negative (Negative) Urine Urobilinogen Normal mg/dL (Negative) Urine Leukocyte Esterase 1+ /uL (Negative) Urine RBC 2 /hpf (0 - 4) Urine WBC 5 /hpf (0 - 5) Urine Squamous Epithelial Cells Few /hpf (<5) Urine Bacteria Few /hpf (None Seen) H Urine Hyaline Casts Mod /lpf (0 - 2) Urine Mucus Few (None Seen) Urine Glucose Normal mg/dL (Normal) Blood Gas Results Test 09/08/24 20:20 Arterial Blood pH 7.451 (7.350-7.450) FiO2 % 21.0 Labs and/or images reviewed: Labs reviewed by me, Image(s) reviewed by me Assessment/Plan Assessment/Plan udpate 09/09 - still severly dyspnic, was unaware of possible advanced cancer as indicated by CT abd. new repeat CT without any acute etiologies for poor po tolerance and "bloating". denied to work with PT today, will need re-eval. lives alone. prognosis gaurded. family upset about sharing CT information with patient. patient likely does not want to know the progression of disease. will defer to primary oncologist. needs social for discharge planning as patient lives alone and now cannot support her ADLs due to dyspnea//hypoxia. IR needed to eval if ascites can be drained. diuresis is causing ADRIA, which is resolving with slow fluids, will hold off any further attempts to diuresis. # acute hypoxic respiratory failure due to pulmonary hypertension - likely from pulmonary hypertension but could also be from abdominal distention from? Cancer related abdominal distension/? ascites?. Oxygen still not delivered 09/08. Patient severely dyspneic with PT. Volume overload on exam with ascities and pulmonary edema on bedsdie U/S on 09/08. failed diuresis trial 09/08. Otherwise continue p.r.n. nebs. # prerenal ADRIA due to VMN - after try IV Lasix diuresis for volue overlaod she gets ADRIA, improving with slow fluids. # volume overload, due to pulmonary hypertension - see above # bilateral pleural effusions - see above # PE ruled out- CTA PE study was inadequate, V/Q scan was low probability for PE. Bilateral DVT ultrasound of lower extremities is negative. # uterine cancer/cervical cancer status post chemo and surgical excision - oncology was consulted inpatient, recommend outpatient follow up. Possible outpatient whole-body scan. outpatient Oncology follow up # abdominal distension/bloating with CT evidence of ascites/omental nodules with suspected metastasis - outpatient Oncology # multiple sclerotic foci throughout the axial skeleton suspected of metastasis - outpatient Oncology # Physical deconditioning likely due to morbid obesity, and volume overload and abdominal distention due to cancer sequela - PT evaluation to continue # morbid obesity-- BMI > 40 Diet CLD GI prophylaxis Pepcid 20 p.o. b.i.d. DVT prophylaxis subQ heparin Med tele Full code Plan discussed with: Patient My Orders Orders - ADRIANA BURNETTE MD Procedure Category Date Status Time Clear Liq Diet DIET 09/08/24 Transmitted Dinner Discharge DISCHARGE 09/09/24 Transmitted 00:43 Ct Ab Pel Wo Con-No CT 09/09/24 Resulted Oral Or Iv 07:00 Furosemide Injection PHA 09/09/24 In Process (Lasix Injection) 09:00 Date of Service: Sep 09, 2024 Billing Provider: ADRIANA BURNETTE MD Common Visit Codes: [id number] INP/OBS CARE(HIGH) ADRIANA BURNETTE MD Sep 09, 2024 16:03
--- NOTE | 2024-09-09 23:11 | DVHPN2 ---
Progress Note - Dictate Date Seen: Sep 09, 2024 Medical Necessity Reason Pt with a Central, PICC or Fol: No Subjective Patient seen and examined at bedside. Remains on supplemental oxygen Overnight events reviewed. vital signs Vital Sign Date Time Temp Pulse Resp B/P (MAP) Pulse Ox O2 Delivery O2 Flow Rate FiO2 09/09/24 22:37 102 24 100 09/09/24 22:31 Nasal Cannula 3.0 09/09/24 22:31 32 09/09/24 21:00 98.8 115/72 (86) 98.8 Total Intake and Output 09/08/24 09/08/24 09/09/24 15:00 23:00 07:00 Intake Total 600 ml 960 ml Output Total 200 ml Balance 600 ml 960 ml -200 ml medications Current Medications Medications Dose Ordered Sig/Vickey Route Start Time Stop Time Status Last Admin Dose Admin Albuterol 2.5 mg Q6HWA NEB 09/04/24 18:00 09/09/24 18:23 2.5 MG Albuterol 2.5 mg Q4HPRN PRN NEB 09/04/24 13:30 09/09/24 22:31 2.5 MG Ipratropium [place] 0.5 mg Q6HWA NEB 09/04/24 18:00 09/09/24 18:23 0.5 MG Ipratropium [place] 0.5 mg Q4HPRN PRN NEB 09/04/24 13:30 09/09/24 22:31 0.5 MG Hydralazine HCl 10 mg Q6HP PRN IV 09/04/24 13:30 09/09/24 05:27 10 MG Aspirin 81 mg DAILY PO 09/05/24 10:00 09/09/24 10:29 81 MG Atorvastatin Calcium 40 mg HS PO 09/04/24 22:00 09/09/24 22:24 40 MG Morphine Sulfate 2 mg Q30MP PRN IV 09/04/24 16:15 Acetaminophen 650 mg Q6HP PRN PO 09/04/24 16:15 09/05/24 21:41 650 MG Nitroglycerin 0.4 mg Q5MINP PRN SL 09/04/24 16:15 09/08/24 02:41 0.4 MG Ondansetron HCl 4 mg Q4HP PRN IV 09/04/24 16:15 09/04/24 22:41 4 MG Nitroglycerin 0.4 mg Q5MINP PRN SL 09/04/24 16:15 UNV Morphine Sulfate 2 mg Q30M PRN IV 09/04/24 16:15 UNV Docusate Sodium 100 mg BID PO 09/05/24 22:00 09/09/24 22:24 100 MG Sennosides 17.2 mg QHSP PRN PO 09/05/24 16:45 09/06/24 22:06 17.2 MG Lactulose 30 ml Q6HPRN PRN PO 09/05/24 16:45 09/08/24 10:22 30 ML Heparin Sodium (Porcine) 5,000 units Q12HR SC 09/05/24 22:00 09/09/24 22:33 5,000 UNITS Azithromycin 250 ml @ 125 mls/hr DAILY@1700 IV 09/05/24 17:00 09/09/24 17:40 125 MLS/HR Acetaminophen/ Hydrocodone Bitart 1 tab Q4HPRN PRN PO 09/06/24 10:00 09/09/24 22:24 1 TAB Morphine Sulfate 2 mg Q4HPRN PRN IV 09/07/24 13:00 09/08/24 00:07 2 MG Ceftriaxone Sodium 50 ml @ 100 mls/hr DAILY@09 IV 09/09/24 09:00 09/09/24 10:15 100 MLS/HR Melatonin 5 mg HS PO 09/08/24 22:00 09/09/24 22:22 5 MG Furosemide 40 mg BIDD IV 09/09/24 09:00 objective Gen.: Patient lying in bed in no apparent distress. On supplemental oxygen. Head: Normocephalic, atraumatic. Eyes: EOMI/PERRLA. Ears: Normal hearing. Normal anatomy. Neck/trachea: Trachea midline, supple. Nose: Normal external anatomy. Mouth: Moist mucous membranes. Chest: Decreased air entry bilaterally. No wheezing or rhonchi. Cardiovascular: Positive S1, positive S2. Regular rate and rhythm. Abdomen: Positive bowel sounds in all 4 quadrants. Soft, non-tender, non- distended. : Deferred. Rectal: Deferred. Skin: Warm, dry. Intact. Extremities: 2+ radial pulses bilaterally. No lower extremity edema. Neuro: Awake, alert, oriented x3. No gross motor or sensory deficits. Cranial nerves II through XII intact. Gait not assessed. laboratory and microbiology Laboratory Tests 09/09/24 13:45 09/09/24 07:55 Test 09/09/24 13:45 Range/Units Serum Glucose 111 H 74-106 mg/dL Assessment/Plan Impression: Acute hypoxic respiratory failure Pulmonary hypertension Pleural effusions Atelectasis Uterine cancer/cervical cancer, s/p chemotherapy Ascites Multiple sclerotic foci throughout axial skeleton, suspect metastases Morbid obesity BMI 41.5 Events: Supplemental oxygen 3 LPM NC Taper O2 as tolerated V/Q scan reviewed, revealed low probability for pulmonary embolism. Echo results reviewed; LVEF of 70% Patient still complaining of - mild improvement. Continue bronchodilators. Continue antibiotics Incentive spirometry Recommend outpatient sleep study, PFTs. Labs and imaging reviewed. Plan: Supplemental oxygen Titrate to keep O2 sats above 92%. CT of chest/abdomen/pelvis demonstrated small bilateral pleural effusions and bibasilar atelectasis; multiple small sclerotic foci throughout the axial skeleton, similar to prior and can be seen with metastatic disease Continue bronchodilators. Continue antibiotics IV steroids - completed course. Incentive spirometry Lactulose Maintain euvolemia Monitor renal function. Monitor electrolytes. Supplement as necessary. Monitor ins and outs. Pain control Avoid oversedation Oncology recs appreciated. Diet and lifestyle modifications for weight reduction Morbid obesity - complicates all care GI prophylaxis - Pepcid DVT prophylaxis - Heparin. Prognosis: Poor given patient's multiple co-morbidities. Rest of plan per hospitalist and other consultants. A total of 51 minutes of clinical care time was spent reviewing the patient record, examining the patient, making a diagnostic and therapeutic plan, discussing this plan with the medical personnel, following up on diagnostic studies and following the patient for clinical stability excluding any and all procedures. At least 50% of this time was spent in direct, [id number] contact. Thank you, Dr. Waterman, for allowing me to participate in this patient's care. Further recommendations will depend on the patient's clinical course. Please do not hesitate to contact me if you have any questions or concerns. This medical document was created using an electronic medical record system with [employer] system. Although these documentations are being carefully reviewed, there may still be some phonetic and typographical changes. The errors are purely typographical, due to imperfection on the software program, and do not reflect any compromise in the patient's medical care. Dietary Evaluation Review Comments: encourage and monitor po intake to meet 75% of her needs, Expected Outcomes/Goals: support optimal nutrition status. Plan discussed with: Patient, Other (ROSINA Bazan) JAMES HEARD MD Sep 09, 2024 23:11
[2024-09-10] VITALS (12 sets, daily range): BP systolic 117–142; BP diastolic 82–89; PULSE 92–110; RESP 15–21; TEMP 97.4–98.2; O2SAT 97–100
[2024-09-10 07:40] LABS: Basophils # (auto) 0 10 ^3/uL (0-0.2); Eosinophils # (auto) 0.1 10 ^3/uL (0-0.8); Eosinophils % (auto) 2.5 % (0.0-7.0); Hematocrit 32.4 % (36.0-46.0); Hemoglobin 10.1 g/dL (12.2-16.2); Lymphocytes # (auto) 0.5 10 ^3/uL (0.4-5.4); Lymphocytes % (auto) 9.4 % (10.0-50.0); Mean Corpuscular Hemoglobin 28.9 pg (28.0-32.0); Mean Corpuscular Hgb Conc. 31.1 g/dL (32.0-36.0); Monocytes # (auto) 0.5 10 ^3/uL (0-1.3); Monocytes % (auto) 10.6 % (0.0-12.0); Neutrophils # (auto) 3.8 10 ^3/uL (1.6-8.6); Neutrophils % (auto) 77.5 % (37.0-80.0); Nucleated Red Blood Cells % 0.3 %; Platelet Count (auto) 236 10^3/uL (140-450); Red Blood Cells 3.49 10^6/uL (4.0-5.20); Red Cell Distribution Width 18.3 % (11.8-14.3)
[2024-09-10 07:46] LABS: Alanine Aminotransferase 19 U/L (7-40); Albumin 3.6 g/dL (3.2-4.8); Alkaline Phosphatase 72 U/L (46-116); Anion Gap 9 (5-15); Aspartate Aminotransferase 24 U/L (13-40); Bilirubin, Total 0.4 mg/dL (0.2-1.0); Calcium 9.8 mg/dL (8.7-10.4); Carbon Dioxide 26 mmol/L (20-31); Chloride 105 mmol/L (98-107); Potassium 3.9 mmol/L (3.5-5.1); Sodium 140 mmol/L (136-145); Total Protein 6.5 g/dL (5.7-8.2)
[2024-09-10 07:52] LABS: Blood Urea Nitrogen 37 mg/dL (9-23); Glucose 111 mg/dL (74-106)
[2024-09-10] MEDS: LACTATED RINGER'S 1,000 ML IV ONE (09:15)
--- NOTE | 2024-09-10 12:31 | DVHPN2 ---
Subjective This is a 69-year-old female with known history of hypertension, history of uterine cancer/cervical cancer status post chemotherapy, chronic arthritis initially presented the hospital with chest pain shortness breath found to have acute hypoxic respiratory failure. Patient currently denies any chest pain shortness of breath. Patient is still complaining of constipation currently getting enema. V/Q scan is negative, Doppler ultrasound shows no evidence of DVT. Patient will be assessed for home oxygen requirement. Reviewed: Care Plan Changes from previous H/P or p: No Changes General: Per HPI Objective Vitals Vital Signs Date Time Temp Pulse Resp B/P (MAP) Pulse Ox O2 Delivery O2 Flow Rate FiO2 09/10/24 12:22 98.0 92 20 131/83 (99) 100 98.0 09/10/24 08:00 Nasal Cannula* 3 32 Intake/Output Intake and Output 09/10/24 07:00 Intake Total 1475 ml Balance 1475 ml Intake Oral 925 ml IV Total 550 ml # Voids 8 Exam HEENT pupils are extra Neck is supple CV is S1-S2 regular rate and rhythm Respiratory bilateral diminished breath sounds at lung bases GI positive bowel sound Extremity no edema ACCESS RN no motor deficit Medications Current Medications Medications Dose Ordered Sig/Vickey Route Start Time Stop Time Status Last Admin Dose Admin Albuterol 2.5 mg Q6HWA NEB 09/04/24 18:00 09/10/24 06:50 2.5 MG Albuterol 2.5 mg Q4HPRN PRN NEB 09/04/24 13:30 09/09/24 22:31 2.5 MG Ipratropium [place] 0.5 mg Q6HWA NEB 09/04/24 18:00 09/10/24 06:50 0.5 MG Ipratropium [place] 0.5 mg Q4HPRN PRN NEB 09/04/24 13:30 09/09/24 22:31 0.5 MG Hydralazine HCl 10 mg Q6HP PRN IV 09/04/24 13:30 09/09/24 05:27 10 MG Aspirin 81 mg DAILY PO 09/05/24 10:00 09/10/24 09:02 81 MG Atorvastatin Calcium 40 mg HS PO 09/04/24 22:00 09/09/24 22:24 40 MG Morphine Sulfate 2 mg Q30MP PRN IV 09/04/24 16:15 Acetaminophen 650 mg Q6HP PRN PO 09/04/24 16:15 09/05/24 21:41 650 MG Nitroglycerin 0.4 mg Q5MINP PRN SL 09/04/24 16:15 09/08/24 02:41 0.4 MG Ondansetron HCl 4 mg Q4HP PRN IV 09/04/24 16:15 09/04/24 22:41 4 MG Nitroglycerin 0.4 mg Q5MINP PRN SL 09/04/24 16:15 UNV Morphine Sulfate 2 mg Q30M PRN IV 09/04/24 16:15 UNV Docusate Sodium 100 mg BID PO 09/05/24 22:00 09/10/24 09:02 100 MG Sennosides 17.2 mg QHSP PRN PO 09/05/24 16:45 09/06/24 22:06 17.2 MG Lactulose 30 ml Q6HPRN PRN PO 09/05/24 16:45 09/08/24 10:22 30 ML Heparin Sodium (Porcine) 5,000 units Q12HR SC 09/05/24 22:00 09/10/24 09:10 5,000 UNITS Azithromycin 250 ml @ 125 mls/hr DAILY@1700 IV 09/05/24 17:00 09/09/24 17:40 125 MLS/HR Acetaminophen/ Hydrocodone Bitart 1 tab Q4HPRN PRN PO 09/06/24 10:00 09/10/24 09:10 1 TAB Morphine Sulfate 2 mg Q4HPRN PRN IV 09/07/24 13:00 09/08/24 00:07 2 MG Ceftriaxone Sodium 50 ml @ 100 mls/hr DAILY@09 IV 09/09/24 09:00 09/10/24 09:01 100 MLS/HR Melatonin 5 mg HS PO 09/08/24 22:00 09/09/24 22:22 5 MG Laboratory Results Laboratory Tests 09/10/24 06:50 Chemistry Test 09/09/24 13:45 09/10/24 06:50 Calcium Level 9.9 mg/dL (8.7-10.4) 9.8 mg/dL (8.7-10.4) Albumin 3.6 g/dL (3.2-4.8) Total Protein 6.5 g/dL (5.7-8.2) LFT Test 09/10/24 06:50 Alanine Aminotransferase (ALT) 19 U/L (7-40) Alkaline Phosphatase 72 U/L (46-116) Aspartate Amino Transferase (AST) 24 U/L (13-40) Total Bilirubin 0.4 mg/dL (0.2-1.0) Urinalysis Test 09/04/24 09:33 Urine Color Yellow (Yellow) Urine Clarity Clear (Clear) Urine pH 5.5 (5.0-9.0) Urine Specific [place] 1.016 (1.001-1.035) Urine Protein Trace (Negative) H Urine Ketones Negative (Negative) Urine Blood Negative /uL (Negative) Urine Nitrite Negative (Negative) Urine Bilirubin Negative (Negative) Urine Urobilinogen Normal mg/dL (Negative) Urine Leukocyte Esterase 1+ /uL (Negative) Urine RBC 2 /hpf (0 - 4) Urine WBC 5 /hpf (0 - 5) Urine Squamous Epithelial Cells Few /hpf (<5) Urine Bacteria Few /hpf (None Seen) H Urine Hyaline Casts Mod /lpf (0 - 2) Urine Mucus Few (None Seen) Urine Glucose Normal mg/dL (Normal) Assessment/Plan Assessment/Plan For 69-year-old female with known history of hypertension, history of uterine and cervical cancer status post chemotherapy initially was in the hospital chest pain shortness breath found to have 1. Acute hypoxic respiratory failure suspect secondary to pulmonary hypertension, PE is inconclusive as per CT angio 2. Pulmonary hypertension 3. Uterine cancer/cervical cancer status post chemotherapy 4. Abdominal distention/bloating bed CT evidence of nucleus ascites/omentum nodules and omental caking suspect metastasis 5. Multiple sclerotic foci throughout the axial skeleton suspected metastases - V/Q scan low probability of PE, Doppler venous ultrasound bilateral lower extremity ruled out DVT -outpatient whole-body scan and follow up with the Hematology Oncology to to follow up on metastatic disease- -Med nebs, O2 supplementation, please assess for home oxygen requirement get ABG. Plan discussed with: Patient, Other Date of Service: Sep 07, 2024 Billing Provider: NEO KHAN MD Common Visit Codes: [id number] INP/OBS CARE(MOD) NEO KHAN MD Sep 10, 2024 12:31
[2024-09-10] MEDS: LACTATED RINGER'S 500 ML IV ONE (13:27)
[2024-09-10 16:26] LABS: Base Excess 1.4 mmol/L (-2.0-3.0)
[2024-09-11] VITALS (14 sets, daily range): BP systolic 121–150; BP diastolic 58–99; PULSE 82–114; RESP 16–22; TEMP 36.4; O2SAT 91–100
--- NOTE | 2024-09-11 12:40 | DVH ---
CHEST RADIOGRAPH Indication: cough Technique: Single frontal view of the chest was obtained Comparison: XY CHEST XRAY 1 VIEW on DOS: 07/03/24, XY CHEST PORTABLE on DOS: 03/16/23 FINDINGS: Lines and Tubes: None Lungs: There is opacity in the medial right lung base which may represent atelectasis versus airspace disease. Pleura: No effusion.No pneumothorax. Cardiomediastinal contours: Unremarkable Pulmonary vasculature: Within normal limits. Bones: No acute osseous abnormality. IMPRESSION: 1. Opacity in the medial right lung base may represent atelectasis versus airspace disease. HS:Y IP SINGH
[2024-09-11] MEDS ORDERED: ALPR0.5T PO (14:54)
--- NOTE | 2024-09-11 14:55 | DVHDS2 ---
Discharge Summary Date of Admission Sep 04, 2024 at 16:09 Date of Discharge: Sep 07, 2024 Labs/Diagnostic Data: Laboratory Results Test 09/10/24 14:30 09/10/24 06:50 09/05/24 05:18 09/04/24 16:35 Blood Gas Specimen Type Arterial Blood Gas Sample Site Right radial Blood Gas Patient Temperature 37.0 Arterial Blood Date Drawn [id number] Arterial Blood pH 7.428 (7.350-7.450) Arterial Blood Partial Pressure CO2 39.9 mmHg (32.0-45.0) Arterial Blood Partial Pressure O2 53.7 mmHg (83.0-108.0) Arterial Blood HCO3 25.8 mmol/L (21.0-28.0) Arterial Blood Oxygen Saturation 86.1 % (94.0-98.0) Arterial Blood Base Excess 1.4 mmol/L (-2.0-3.0) Arterial Blood Oxyhemoglobin 85.5 % (94.0-98.0) Arterial Blood Carboxyhemoglobin 0.4 % (0.5-1.5) Arterial Blood Methemoglobin 0.3 % (0.0-1.5) Manav Test Yes Blood Gas Total Hemoglobin 10.90 g/dL (12.0-16.0) Blood Gas Modality Room air FiO2 % 21.0 Blood Gas Critical Value Read Back Yes Blood Gas Notified Whom milo Burnette md Blood Gas Notified Time [id number] Blood Gas Notified By Health Education Specialist otoniel vitale White Blood Count 5.0 10^3/uL (4.4-10.8) Red Blood Count 3.49 10^6/uL (4.0-5.20) Hemoglobin 10.1 g/dL (12.2-16.2) Hematocrit 32.4 % (36.0-46.0) Mean Corpuscular Volume 93.0 fL (80.0-100.0) Mean Corpuscular Hemoglobin 28.9 pg (28.0-32.0) Mean Corpuscular Hemoglobin Concent 31.1 g/dL (32.0-36.0) Red Cell Distribution Width 18.3 % (11.8-14.3) Platelet Count 236 10^3/uL (140-450) Mean Platelet Volume 8.7 fL (6.9-10.8) Neutrophils (%) (Auto) 77.5 % (37.0-80.0) Lymphocytes (%) (Auto) 9.4 % (10.0-50.0) Monocytes (%) (Auto) 10.6 % (0.0-12.0) Eosinophils (%) (Auto) 2.5 % (0.0-7.0) Basophils (%) (Auto) 0.0 % (0.0-2.0) Neutrophils # (Auto) 3.8 10 ^3/uL (1.6-8.6) Lymphocytes # (Auto) 0.5 10 ^3/uL (0.4-5.4) Monocytes # (Auto) 0.5 10 ^3/uL (0-1.3) Eosinophils # (Auto) 0.1 10 ^3/uL (0-0.8) Basophils # (Auto) 0 10 ^3/uL (0-0.2) Nucleated Red Blood Cells 0.3 % Sodium Level 140 mmol/L (136-145) Potassium Level 3.9 mmol/L (3.5-5.1) Chloride Level 105 mmol/L (98-107) Carbon Dioxide Level 26 mmol/L (20-31) Anion Gap 9 (5-15) Blood Urea Nitrogen 37 mg/dL (9-23) Creatinine 2.31 mg/dL (0.550-1.02) Glomerular Filtration Rate Calc 22 mL/min (>90) BUN/Creatinine Ratio 16.0 (10.0-20.0) Serum Glucose 111 mg/dL (74-106) Calcium Level 9.8 mg/dL (8.7-10.4) Total Bilirubin 0.4 mg/dL (0.2-1.0) Aspartate Amino Transferase (AST) 24 U/L (13-40) Alanine Aminotransferase (ALT) 19 U/L (7-40) Alkaline Phosphatase 72 U/L (46-116) Total Protein 6.5 g/dL (5.7-8.2) Albumin 3.6 g/dL (3.2-4.8) Random Vancomycin Level 15.1 ug/mL (5-10) Troponin I High Sensitivity 5 ng/L (</=34) Test 09/04/24 10:25 09/04/24 09:33 09/04/24 09:30 Prothrombin Time 11.6 sec (9.3-11.8) Prothrombin Time INR 1.10 (0.9-1.15) Activated Partial Thromboplast Time 20.9 SEC (24.5-34.5) D-Dimer, Quantitative 10.60 mg/L FEU (0.0-0.49) Magnesium Level 2.1 mg/dL (1.6-2.6) B-Type Natriuretic Peptide 12.29 pg/mL (0-100) Urine Color Yellow (Yellow) Urine Clarity Clear (Clear) Urine pH 5.5 (5.0-9.0) Urine Specific [place] 1.016 (1.001-1.035) Urine Protein Trace (Negative) Urine Ketones Negative (Negative) Urine Blood Negative /uL (Negative) Urine Nitrite Negative (Negative) Urine Bilirubin Negative (Negative) Urine Urobilinogen Normal mg/dL (Negative) Urine Leukocyte Esterase 1+ /uL (Negative) Urine RBC 2 /hpf (0 - 4) Urine WBC 5 /hpf (0 - 5) Urine Squamous Epithelial Cells Few /hpf (<5) Urine Bacteria Few /hpf (None Seen) Urine Hyaline Casts Mod /lpf (0 - 2) Urine Mucus Few (None Seen) Urine Glucose Normal mg/dL (Normal) Influenza Type A Antigen Negative (Negative) Influenza Type B Antigen Negative (Negative) SARS-CoV-2 Antigen (Rapid) Negative (NEGATIVE) Other Laboratory Tests 09/10/24 06:50 Brief Hx & Hospital Course: 69-year-old female with past medical history of hypertension, asthma, arthritis, uterine cancer, cervical cancer who finished chemo last week, hysterectomy, and right knee replacement who presents to the ED today with shortness of breath and chest pain x2 weeks. Patient states that couple weeks ago she develop the symptoms while she was sitting down and complains of aching constant 4/[address] abdomen without con shows new trace ascites, omental nodules, hematochezia choking likely metastatic disease, pericardial lymph nodes prominent, sclerotic foci on axial skeleton similar to prior with likely metastatic disease. CTA angio PE study is inadequate to rule out PE but finds bilateral pleural effusions with compressive atelectasis, and pulmonary artery hypertension, and again finding sclerotic foci on axial skeleton likely osteoblastic metastasis. DVT ultrasound bilateral is negative. V/Q scan is low probability for PE. Patient initially treated with nebulizers Solu-Medrol antibiotics ceftriaxone and azithromycin then levofloxacin. Also tried to give laxatives which did not help with the transition. Diuresis was tried. Patient does well with PT but does develop significant dyspnea. Diuresis has tried but ADRIA develops, patient is rehydrated and oxide resolves. No good pocket for paracentesis found. Patient needs oxygen requirement ambulation. Shortness of breath is likely from obesity versus abdominal distention from omental caking. Nausea is likely also from possible advanced metastatic disease and distended abdomen. IR is consulted for Paracentesis But no good pocket available. Patient works better with PT and is stable to discharge with home oxygen. Close follow up with primary oncologist and we will possibly need a whole-body scan. Diagnosis: acute hypoxic respiratory failure resolved; new diagnosed chronic respiratory failure; COPD exacerbation and possible,; pneumonia CPAP Gram-negative/Gram-positive/atypical possible; ADRIA resolving; PAH; PE ruled out; hx uterine cancer s/p resection; omental caking on CT; Multiple sclerotic foci throughout the axial skeleton suspected metastases; DVT ruled out; Discharge plan: - dc home with HH. - oxygen use, keep SpO2>90 - referral to pulmonary to follow new chronic hypoxiemia - f/u with Dr Vences to evaluate possible new findings on CT scans. may need whole-body scans. - DC clinic repeat BMP to follow adria resolution. - use xanax prn for anxiety-induced SOB. refills with oncology. - Please return to ER if there is any concern. continue other medications not mentioned above. Visitation and planning required 35 minutes Condition at Discharge: Guarded Final Diagnosis/Problems List acute hypoxic respiratory failure resolved; new diagnosed chronic respiratory failure; COPD exacerbation and possible,; pneumonia CPAP Gram-negative/Gram-positive/atypical possible; ADRIA resolving; PAH; PE ruled out; hx uterine cancer s/p resection; omental caking on CT; Multiple sclerotic foci throughout the axial skeleton suspected metastases; DVT ruled out; Discharge Disposition: Home with Health Services Discharge Instruct/Medications Diet: Cardiac 2g Na,low cholest Activity: No Restrictions, As Tolerated Follow Up/Referral: Follow up with the PCP in one week Follow up with Dr. Vences in 1 week, may need whole-body scan Medications: As prescribed Discharge Statement: "Patient was advised to return to the ER or call 911 if any headaches, dizziness, shortness of breath, chest pain, abdominal pain, bleeding, fevers, or worsening of medical condition. Patient was counseled about treatment plan, medications, possible side effects, patientverbalized understanding. All questions were answered to the best of my ability. This discharge took greater then 30 minutes in planning, reviewing documentation, counseling the patient, and discussing with other team members." ASSESSMENT ASSESSMENT Assessment acute hypoxic respiratory failure resolved; new diagnosed chronic respiratory failure; COPD exacerbation and possible,; pneumonia CPAP Gram-negative/Gram-positive/atypical possible; ADRIA resolving; PAH; PE ruled out; hx uterine cancer s/p resection; omental caking on CT; Multiple sclerotic foci throughout the axial skeleton suspected metastases; DVT ruled out; Date of Service: Sep 11, 2024 Billing Provider: ADRIANA BURNETTE MD Common Visit Codes: [id number] DISCH DAY >30min ADRIANA BURNETTE MD Sep 11, 2024 14:55
--- NOTE | 2024-09-11 21:11 | DVHPN2 ---
Subjective update 09/10 - still SOB, PT to eval further today and IR to eval capability to do para today. outpt f/u with oncology. 09/09 - still severly dyspnic, was unaware of possible advanced cancer as indicated by CT abd. new repeat CT without any acute etiologies for poor po tolerance and "bloating". denied to work with PT today, will need re-eval. lives alone. prognosis gaurded. family upset about sharing CT information with patient. patient likely does not want to know the progression of disease. will defer to primary oncologist. needs social for discharge planning as patient lives alone and now cannot support her ADLs due to dyspnea//hypoxia. IR needed to eval if ascites can be drained. diuresis is causing ADRIA, which is resolving with slow fluids, will hold off any further attempts to diuresis. 09/08 update-- not feeling good. very dyspnic with exertion, hypoxia worsens with ambulation. needs PT and more optimization. patient has decreased PO tolerance. volume overload, unknown cause as she is not ESRD or cirrhotic or CHF, not diagnosed yet. she has bilateral pleural effusion and pitting edema. mobility is very limited and has unremitting nausea. will try diuresis, CLD, continue prn zofran. switch ABx to ctx/azithro. will try bedside US for pleural effusion eval. lasix 40 x1, then 20 bid. bring PT eval onboard. expecting 1-2 days more inpatient. oxygen available bedside. Reviewed: Care Plan Changes from previous H/P or p: No Changes General: Per HPI Objective Vitals Vital Signs Date Time Temp Pulse Resp B/P (MAP) Pulse Ox O2 Delivery O2 Flow Rate FiO2 09/11/24 17:00 97.5 98 16 121/58 (79) 91 97.5 09/11/24 14:05 Nasal Cannula 4.0 09/11/24 14:05 36 Intake/Output Intake and Output 09/11/24 07:00 Intake Total 1560 ml Output Total 500 ml Balance 1060 ml Intake Oral 1260 ml IV Total 300 ml Output Urine Total 500 ml # Voids 2 Exam gen: appears SOB. using some accessory muscles. cv: s1s2, NMRG lungs: rales upto midlungs, absent bases sounds abdomen: bs present , NT ND. obese abdomen. extrem: pitting edema 1-2+ bilateral Neuro: No FND Medications Current Medications Medications Dose Ordered Sig/Vickey Route Start Time Stop Time Status Last Admin Dose Admin Nitroglycerin 0.4 mg Q5MINP PRN SL 09/04/24 16:15 UNV Morphine Sulfate 2 mg Q30M PRN IV 09/04/24 16:15 UNV Laboratory Results Laboratory Tests 09/10/24 06:50 Urinalysis Test 09/04/24 09:33 Urine Color Yellow (Yellow) Urine Clarity Clear (Clear) Urine pH 5.5 (5.0-9.0) Urine Specific [place] 1.016 (1.001-1.035) Urine Protein Trace (Negative) H Urine Ketones Negative (Negative) Urine Blood Negative /uL (Negative) Urine Nitrite Negative (Negative) Urine Bilirubin Negative (Negative) Urine Urobilinogen Normal mg/dL (Negative) Urine Leukocyte Esterase 1+ /uL (Negative) Urine RBC 2 /hpf (0 - 4) Urine WBC 5 /hpf (0 - 5) Urine Squamous Epithelial Cells Few /hpf (<5) Urine Bacteria Few /hpf (None Seen) H Urine Hyaline Casts Mod /lpf (0 - 2) Urine Mucus Few (None Seen) Urine Glucose Normal mg/dL (Normal) Labs and/or images reviewed: Labs reviewed by me, Image(s) reviewed by me Assessment/Plan Assessment/Plan update -09/10 - still SOB, PT to eval further today and IR to eval capability to do para today. outpt f/u with oncology. # acute hypoxic respiratory failure due to pulmonary hypertension - likely from pulmonary hypertension but could also be from abdominal distention from? Cancer related abdominal distension/? ascites?. Oxygen still not delivered 09/08. Patient severely dyspneic with PT. Volume overload on exam with ascities and pulmonary edema on bedsdie U/S on 09/08. failed diuresis trial 09/08. Otherwise continue p.r.n. nebs. not qualify at rest but quality for oxygen w ambulation. oxygen ordered today. # prerenal ADRIA due to VMN, resolving. - after try IV Lasix diuresis for volue overlaod she gets ADRIA, improving with slow fluids. # volume overload, due to pulmonary hypertension - see above # bilateral pleural effusions - see above # PE ruled out- CTA PE study was inadequate, V/Q scan was low probability for PE. Bilateral DVT ultrasound of lower extremities is negative. # uterine cancer/cervical cancer status post chemo and surgical excision - oncology was consulted inpatient, recommend outpatient follow up. Possible outpatient whole-body scan. outpatient Oncology follow up # abdominal distension/bloating with CT evidence of ascites/omental nodules with suspected metastasis - outpatient Oncology # multiple sclerotic foci throughout the axial skeleton suspected of metastasis - outpatient Oncology # Physical deconditioning likely due to morbid obesity, and volume overload and abdominal distention due to cancer sequela - PT evaluation to continue # morbid obesity-- BMI > 40 Diet CLD GI prophylaxis Pepcid 20 p.o. b.i.d. DVT prophylaxis subQ heparin Med tele Full code (NOTE FOR 09/10/24) Plan discussed with: Patient My Orders Orders - ADRIANA BURNETTE MD Procedure Category Date Status Time * [address] Stenographer CONS 09/11/24 Transmitted Consult Discharge DISCHARGE 09/11/24 Transmitted 15:32 Date of Service: Sep 10, 2024 Billing Provider: ADRIANA BURNETTE MD Common Visit Codes: [id number] INP/OBS CARE(HIGH) ADRIANA BURNETTE MD Sep 11, 2024 21:11
--- NOTE | 2024-09-11 23:15 | DVHPN2 ---
Progress Note - Dictate Date Seen: Sep 11, 2024 Medical Necessity Reason Pt with a Central, PICC or Fol: No Subjective Patient seen and examined at bedside. Remains on supplemental oxygen Overnight events reviewed. vital signs Vital Sign Date Time Temp Pulse Resp B/P (MAP) Pulse Ox O2 Delivery O2 Flow Rate FiO2 09/11/24 17:00 97.5 98 16 121/58 (79) 91 97.5 09/11/24 14:05 Nasal Cannula 4.0 09/11/24 14:05 36 Total Intake and Output 09/10/24 09/10/24 09/11/24 15:00 23:00 07:00 Intake Total 50 ml 1010 ml 500 ml Output Total 500 ml Balance 50 ml 510 ml 500 ml medications Current Medications Medications Dose Ordered Sig/Vickey Route Start Time Stop Time Status Last Admin Dose Admin Nitroglycerin 0.4 mg Q5MINP PRN SL 09/04/24 16:15 UNV Morphine Sulfate 2 mg Q30M PRN IV 09/04/24 16:15 UNV objective Gen.: Patient lying in bed in no apparent distress. On supplemental oxygen. Head: Normocephalic, atraumatic. Eyes: EOMI/PERRLA. Ears: Normal hearing. Normal anatomy. Neck/trachea: Trachea midline, supple. Nose: Normal external anatomy. Mouth: Moist mucous membranes. Chest: Decreased air entry bilaterally. No wheezing or rhonchi. Cardiovascular: Positive S1, positive S2. Regular rate and rhythm. Abdomen: Positive bowel sounds in all 4 quadrants. Soft, non-tender, non- distended. : Deferred. Rectal: Deferred. Skin: Warm, dry. Intact. Extremities: 2+ radial pulses bilaterally. No lower extremity edema. Neuro: Awake, alert, oriented x3. No gross motor or sensory deficits. Cranial nerves II through XII intact. Gait not assessed. laboratory and microbiology Laboratory Tests 09/10/24 06:50 Test 09/10/24 06:50 Range/Units Serum Glucose 111 H 74-106 mg/dL Assessment/Plan Impression: Acute hypoxic respiratory failure Pulmonary hypertension Pleural effusions Atelectasis Uterine cancer/cervical cancer, s/p chemotherapy Ascites Multiple sclerotic foci throughout axial skeleton, suspect metastases Morbid obesity BMI 41.5 Events: Supplemental oxygen 3 LPM NC Taper O2 as tolerated Discharge on home oxygen V/Q scan revealed low probability for pulmonary embolism. Echo results reviewed; LVEF of 70% Continue bronchodilators. Continue antibiotics Incentive spirometry Recommend outpatient followup - pt to get sleep study, PFTs and 6MWT. Labs and imaging reviewed. Plan: Supplemental oxygen Titrate to keep O2 sats above 92%. CT of chest/abdomen/pelvis demonstrated small bilateral pleural effusions and bibasilar atelectasis; multiple small sclerotic foci throughout the axial skeleton, similar to prior and can be seen with metastatic disease Continue bronchodilators. Continue antibiotics IV steroids - completed course. Incentive spirometry Lactulose Maintain euvolemia Monitor renal function. Monitor electrolytes. Supplement as necessary. Monitor ins and outs. Pain control Avoid oversedation Oncology recs appreciated. Diet and lifestyle modifications for weight reduction Morbid obesity - complicates all care GI prophylaxis - Pepcid DVT prophylaxis - Heparin. Prognosis: Poor given patient's multiple co-morbidities. Rest of plan per hospitalist and other consultants. A total of 51 minutes of clinical care time was spent reviewing the patient record, examining the patient, making a diagnostic and therapeutic plan, discussing this plan with the medical personnel, following up on diagnostic studies and following the patient for clinical stability excluding any and all procedures. At least 50% of this time was spent in direct, [id number] contact. Thank you, Dr. Waterman, for allowing me to participate in this patient's care. Further recommendations will depend on the patient's clinical course. Please do not hesitate to contact me if you have any questions or concerns. This medical document was created using an electronic medical record system with [employer] [place] dictation system. Although these documentations are being carefully reviewed, there may still be some phonetic and typographical changes. The errors are purely typographical, due to imperfection on the software program, and do not reflect any compromise in the patient's medical care. Dietary Evaluation Review Comments: encourage and monitor po intake to meet 75% of her needs, Expected Outcomes/Goals: support optimal nutrition status. Plan discussed with: Patient, Other (ROSINA Guzmán) JAMES HEARD MD Sep 11, 2024 23:15
== END 2024-09-11 17:25 | disposition home health service (06) | DRG 871 ==
LOC: ER 07:51 → TELE 16:09 → TELE-CENTR 20:06
PROVIDERS: ADMIT Student in an Organized Health Care Education/Training Program; ATTEND Student in an Organized Health Care Education/Training Program
PROC: 5A09357 Assistance with Respiratory Ventilation, Less than 24 Consecutive Hours, Continuous Positive Airway Pressure (ICD-10-PCS; principal; 2024-09-08)
PROC: 05H933Z Insertion of Infusion Device into Right Brachial Vein, Percutaneous Approach (ICD-10-PCS; 2024-09-08)
PROC: B54MZZA Ultrasonography of Right Upper Extremity Veins, Guidance (ICD-10-PCS; 2024-09-08)
DX: A41.50 Gram-negative sepsis, unspecified (principal); J15.69 Pneumonia due to other Gram-negative bacteria; J96.21 Acute and chronic respiratory failure with hypoxia; N17.0 Acute kidney failure with tubular necrosis; J15.9 Unspecified bacterial pneumonia; J45.901 Unspecified asthma with (acute) exacerbation; J90 Pleural effusion, not elsewhere classified; J98.11 Atelectasis; N39.0 Urinary tract infection, site not specified; R18.8 Other ascites; Z68.41 Body mass index [BMI] 40.0-44.9, adult; J44.1 Chronic obstructive pulmonary disease with (acute) exacerbation; J44.0 Chronic obstructive pulmonary disease with (acute) lower respiratory infection; Z20.822 Contact with and (suspected) exposure to COVID-19; B34.9 Viral infection, unspecified; I27.20 Pulmonary hypertension, unspecified; K59.00 Constipation, unspecified; E66.01 Morbid (severe) obesity due to excess calories; Z96.651 Presence of right artificial knee joint; E87.70 Fluid overload, unspecified; Z90.710 Acquired absence of both cervix and uterus; Z82.49 Family history of ischemic heart disease and other diseases of the circulatory system; Z85.41 Personal history of malignant neoplasm of cervix uteri; Z85.42 Personal history of malignant neoplasm of other parts of uterus; Z92.21 Personal history of antineoplastic chemotherapy; Z92.3 Personal history of irradiation
CPT/HCPCS: 36415; 36600; 71045; 71250; 71275; 74176; 78582; 80048; 80053; 80202; 81001; 82805; 83735; 83880; 84484; 85025; 85379; 85610; 85730; 87426; 87804; 93005; 93306; 93970; 94640; 94660; 97110; 97116; 97163; 97530; G0378; J2405; J3490; J7060